=== PATIENT | female | born 1935 | race Caucasian/White ===

== ENCOUNTER → 2017-11-08 | Outpatient (CLI) | payer MEDICARE, BC ==
[2015-06-30 14:30] VITALS: BP 144/85
[~2017-11-08] MED LIST: ACET650T89 PO; APIX5TAB3 PO; ASCO500T2 PO; BUPIVACAINE MPF 0.5% 30 ML VIAL. ONE; CARV3.122 PO; DEXAMETHASONE SOD PHOS 4 MG/ML VIAL ONE; FELO2.5T PO; FELO5TAB PO; FERR325T72 PO; FURO-69 PO; FURO40TA4 PO; GLYB2.5T2 PO; HYDR-2758 PO; HYDR-2762 PO; LIDO700A4 TP; LISI10TA2 PO; NITR0.4T22 SL; NYST15PO9 TP; PANT40TA5 PO; POTA10TA10 PO; PRAV20TA2 PO
== END | disposition home or self-care (01) ==
LOC: SURG 13:24
PROVIDERS: ATTEND Anesthesiology Pain Medicine
DX: M47.816 Spondylosis without myelopathy or radiculopathy, lumbar region (principal); E11.9 Type 2 diabetes mellitus without complications; Z86.73 Personal history of transient ischemic attack (TIA), and cerebral infarction without residual deficits; Z88.5 Allergy status to narcotic agent; Z79.899 Other long term (current) drug therapy; M19.90 Unspecified osteoarthritis, unspecified site; Z88.1 Allergy status to other antibiotic agents; Z88.2 Allergy status to sulfonamides; Z88.8 Allergy status to other drugs, medicaments and biological substances; Z79.84 Long term (current) use of oral hypoglycemic drugs
CPT/HCPCS: 64493; 64494; 82947; J1100; J3490

== ENCOUNTER → 2017-11-28 | Outpatient (CLI) | payer MEDICARE, BC ==
[2017-11-10 11:05] VITALS: BP 148/85
[~2017-11-28] MED LIST changes: -BUPIVACAINE MPF 0.5% 30 ML VIAL. ONE; -DEXAMETHASONE SOD PHOS 4 MG/ML VIAL ONE; +IOHEXOL 240 MG/ML 50ML VIAL. ONE
--- NOTE | 2017-11-28 16:39 | RAD ---
CT Abdomen and Pelvis without Intravenous Contrast: History: Poor appetite. Weight loss. Comparison: CT abdomen pelvis June 30, 2015. Technique: After administration of oral contrast only, CT of the abdomen and pelvis was performed. No intravenous contrast was administered secondary to impaired renal function. Exposure: One or more of the following individualized dose reduction techniques were utilized for this examination: 1. Automated exposure control 2. Adjustment of the mA and/or kV according to patient size 3. Use of iterative reconstruction technique Findings: Evaluation of solid organs is limited by lack of intravenous contrast. Images of the lower chest demonstrate mild bronchiectasis. Mild interlobular and intralobular septal thickening is seen involving the lung bases, favored to be direct sales representative of fibrotic change. Mitral annular calcifications are seen. Liver, spleen, pancreas, and bilateral adrenal glands are unremarkable. Gallbladder is absent. Aortic atherosclerosis is seen. No abdominal or pelvic lymphadenopathy is appreciated. Superior pole of the right kidney demonstrates 3.1 cm exophytic low-density lesion. Interpolar region of the right kidney demonstrates 1.3 cm low-density lesion. Renal lesions are not adequately characterized on this examination. No urinary stone is identified. There does appear to be a mild wall thickening of urinary bladder and surrounding irregularity of the adjacent fat. Uterus is absent. Appendix is not confidently identified, but no inflammation is seen adjacent to the cecum. Several small fat-containing ventral hernias are seen. Apparent Degenerative changes are present in the spine. Mild levoconvex scoliosis of lumbar spine is seen. Impression: 1. No cause for patient's weight loss is identified. 2. Multiple fat-containing ventral hernias. 3. Right kidney demonstrates low-density lesions, not clinically characterized on this examination. Attempt at evaluation could be made with ultrasound. 4. Urinary bladder wall appears mildly thickening and there is irregularity of the surrounding fat. Correlate for possibility of cystitis. 5. Mild fibrotic changes of the lung bases. Mild bronchiectasis. Electronically signed by: Maverick Gillespie MD (11/28/2017 3:44 PM) [place] [id number]
== END | disposition home or self-care (01) ==
LOC: CT 08:32
PROVIDERS: ATTEND Family Medicine
DX: K43.9 Ventral hernia without obstruction or gangrene (principal); J47.9 Bronchiectasis, uncomplicated; I70.0 Atherosclerosis of aorta; I11.0 Hypertensive heart disease with heart failure; I50.9 Heart failure, unspecified; E11.9 Type 2 diabetes mellitus without complications; Z79.84 Long term (current) use of oral hypoglycemic drugs; Z90.49 Acquired absence of other specified parts of digestive tract
CPT/HCPCS: 74176; Q9966

== ENCOUNTER → 2017-12-06 | Outpatient (CLI) | payer MEDICARE, BC ==
[2017-11-10 11:05] VITALS: BP 148/85
[~2017-12-06] MED LIST changes: -IOHEXOL 240 MG/ML 50ML VIAL. ONE
--- NOTE | 2017-12-06 15:13 | RAD ---
Right renal ultrasound, 12/06/2017: HISTORY: Abnormal CT The right kidney measures 9.8 cm in length. There is no evidence of hydronephrosis. There is a 2.9 cm simple cyst arising from the upper pole of the right kidney. There is a smaller 1.3 cm cortical nodule located laterally which also appears to represent a cyst. There is mild bilateral renal cortical scarring. Limited views of urinary bladder show no abnormality. IMPRESSION: 1. Mild right renal cortical scarring. 2. Small right renal cysts. Electronically signed by: Vernon Santos MD (12/06/2017 3:09 PM) [facility]
== END | disposition home or self-care (01) ==
LOC: US 09:12
PROVIDERS: ATTEND Family Medicine
DX: N28.1 Cyst of kidney, acquired (principal); N28.89 Other specified disorders of kidney and ureter
CPT/HCPCS: 76775

== ENCOUNTER 2018-04-08 16:13 | Inpatient (IN) | payer MEDICARE, BC ==
[~2018-04-08] VITALS: Ht 167.6 cm; Wt 96.7 kg
[~2018-04-08 16:13] MED LIST changes: -CARV3.122 PO; +CARV3.1230 PO; +HYDR-2155 PO; -HYDR-2758 PO; -HYDR-2762 PO; +HYDR-2765 PO
[2018-04-08 16:40] LABS: BASO % 1 % (0-3); EOS % 0 % (0-3); HEMATOCRIT 33.9 % (36.0-47.0); HEMOGLOBIN 10.7 g/dL (12.0-15.5); LYMPH # 0.8 x10^3/uL (1.0-4.8); LYMPH % 12 % (24-48); MEAN CORPUSCULAR HEMOGLOBIN 29 pg (25-35); MEAN CORPUSCULAR HGB CONC 32 g/dL (31-37); MEAN CORPUSCULAR VOLUME 91 fL (79-100); MONO # 0.4 x10^3/uL (0.0-1.1); MONO % 7 % (0-9); NEUT # 4.9 x10^3uL (1.8-7.7); NEUT % 80 % (31-73); PLATELET COUNT 168 x10^3/uL (140-400); RED BLOOD COUNT 3.75 x10^6/uL (3.50-5.40); RED CELL DISTRIBUTION WIDTH 17.9 % (11.5-14.5); WHITE BLOOD COUNT 6.2 x10^3/uL (4.0-11.0)
[2018-04-08 16:57] LABS: ALBUMIN 3.3 g/dL (3.4-5.0); ALBUMIN/GLOBULIN RATIO 0.7 (1.0-1.7); CALCIUM 8.5 mg/dL (8.5-10.1); CREATININE 1.3 mg/dL (0.6-1.0); GFR 39.1; POTASSIUM 3.3 mmol/L (3.5-5.1); TOTAL BILIRUBIN 0.5 mg/dL (0.2-1.0); TOTAL PROTEIN 7.8 g/dL (6.4-8.2)
[2018-04-08 16:58] VITALS: BP 136/87
[2018-04-08] MEDS ORDERED: VANCOMYCIN 2 GM in IV NORMAL SALINE 500ML 500 ML IV ONE (17:00)
[2018-04-08] MEDS ORDERED: ACETAMINOPHEN 325 MG TABLET PO PRN (18:00)
[2018-04-08] MEDS: VANCOMYCIN PER PHARMACY MC PRN (20:07)
[2018-04-08] MEDS: HYDROcodone/APAP 7.5/325MG 1 TAB TABLET PO PRN (20:14)
[2018-04-08] MEDS: APIXABAN 5 MG TABLET. PO SCH (20:14)
[2018-04-08] MEDS: PRAVASTATIN 20 MG TABLET. PO SCH (20:14)
[2018-04-08] MEDS: PANTOPRAZOLE 40 MG TABLET. PO SCH (20:15)
[2018-04-08] MEDS: CARVEDILOL 3.125 MG TABLET PO SCH (20:15)
[2018-04-08] MEDS: LACTOBACILLUS RHAMNOSUS GG 1 CAPSULE. PO SCH (20:18)
[2018-04-08] MEDS: NYSTATIN TOPICAL POWDER 15GM BOTTLE. TP SCH (20:18)
[2018-04-08 20:46] VITALS: BP 93/67
[2018-04-08 23:29] VITALS: BP 120/69
[2018-04-09 00:13] LABS: HEMOGLOBIN A1C 6.1 % (4.8-5.6)
[2018-04-09] MEDS: HYDROcodone/APAP 7.5/325MG 1 TAB TABLET PO PRN ×3 (03:11→20:23)
[2018-04-09 06:20] VITALS: BP 144/78
[2018-04-09 06:25] LABS: BASO % 1 % (0-3); EOS % 1 % (0-3); HEMATOCRIT 30.2 % (36.0-47.0); HEMOGLOBIN 9.5 g/dL (12.0-15.5); LYMPH % 21 % (24-48); MEAN CORPUSCULAR HEMOGLOBIN 28 pg (25-35); MEAN CORPUSCULAR HGB CONC 31 g/dL (31-37); MEAN CORPUSCULAR VOLUME 90 fL (79-100); MONO # 0.4 x10^3/uL (0.0-1.1); MONO % 8 % (0-9); NEUT # 3.4 x10^3uL (1.8-7.7); NEUT % 70 % (31-73); PLATELET COUNT 144 x10^3/uL (140-400); RED BLOOD COUNT 3.38 x10^6/uL (3.50-5.40); RED CELL DISTRIBUTION WIDTH 17.4 % (11.5-14.5); WHITE BLOOD COUNT 4.9 x10^3/uL (4.0-11.0)
[2018-04-09 06:37] LABS: CALCIUM 8.3 mg/dL (8.5-10.1); CREATININE 1.2 mg/dL (0.6-1.0); GFR 42.9; POTASSIUM 3.4 mmol/L (3.5-5.1)
[2018-04-09] MEDS: LACTOBACILLUS RHAMNOSUS GG 1 CAPSULE. PO SCH ×2 (08:57→20:22)
[2018-04-09] MEDS: APIXABAN 5 MG TABLET. PO SCH ×2 (08:58→20:23)
[2018-04-09] MEDS: NYSTATIN TOPICAL POWDER 15GM BOTTLE. TP SCH ×2 (08:58→20:24)
[2018-04-09] MEDS: LIDOCAINE (700MG/PATCH) PATCH. TD SCH (08:58)
[2018-04-09] MEDS: FUROSEMIDE 40 MG TABLET PO SCH (08:58)
[2018-04-09] MEDS: amLODIPine BESYLATE 2.5 MG TABLET PO SCH (08:58)
[2018-04-09] MEDS: CARVEDILOL 3.125 MG TABLET PO SCH ×2 (08:58→20:23)
[2018-04-09] MEDS: POTASSIUM CHLORIDE 10 MEQ TABLET.ER. PO SCH (08:59)
[2018-04-09] MEDS: PANTOPRAZOLE 40 MG TABLET. PO SCH ×2 (09:00→20:23)
[2018-04-09] MEDS: glyBURIDE 5 MG TABLET PO SCH (09:00)
[2018-04-09] MEDS: IV NORMAL SALINE 1,000ML 1,000 ML IV SCH (10:44)
[2018-04-09 11:14] VITALS: BP 166/102
[2018-04-09 11:15] VITALS: BP 164/106
[2018-04-09] MEDS ORDERED: ELECTROLYTE (ICU) PROTOCOL. MC PRN (11:30)
--- NOTE | 2018-04-09 13:21 | RAD ---
EXAM: Bilateral lower extremity venous Doppler sonogram. HISTORY: Swelling and pain. TECHNIQUE: Bailey scale and color Doppler sonographic evaluation of the bilateral lower extremity veins with spectral waveform analysis was performed. FINDINGS: The exam is limited due to body habitus and soft tissue swelling. The calf veins are not well seen. There is normal color flow, normal compressibility and there are normal spectral waveforms in the common femoral, superficial femoral, popliteal veins. IMPRESSION: No Doppler evidence of lower extremity deep venous thrombosis, with limited evaluation of the calf veins due to body habitus and soft tissue swelling. Electronically signed by: Katie Reynoso MD (04/09/2018 1:16 PM) [place] [id number]
[2018-04-09] MEDS: hydrALAZINE 25 MG TABLET PO SCH ×2 (13:25→20:23)
[2018-04-09] MEDS ORDERED: IOHEXOL 300 MG/ML 75 ML VIAL. IV ONE (14:15)
--- NOTE | 2018-04-09 14:51 | RAD ---
Examination: CT angiography chest HISTORY: History of elevated d-dimer, shortness of breath COMPARISON: None available Technique: Axial CT angiographic images of the chest performed with IV contrast. Coronal and sagittal 3-D MIP reformats are performed Exposure: One or more of the following individualized dose reduction techniques were utilized for this examination: 1. Automated exposure control 2. Adjustment of the mA and/or kV according to patient size 3. Use of iterative reconstruction technique FINDINGS: The central airways are patent. Mild cardiomegaly. Coronary artery calcifications identified. There is no evidence of filling defect identified in the main pulmonary arterial trunk and right and left main pulmonary arteries. The evaluation of the distal lobar, segmental branch of the pulmonary arteries is limited. There are multiple patchy groundglass airspace opacities identified in the bilateral lungs could be air trapping or small airway or small vessel disease with airspace opacities identified along the left lingula, left lower lobe and right lower lobe bronchial branches likely pneumonitis or bronchitis. Small left pleural effusion. Mild congestive changes. There is reflux of contrast from the into the IVC and hepatic veins The visualized liver, spleen, adrenals grossly appears unremarkable Moderate degenerative changes thoracic spine. IMPRESSION: 1. No evidence of central pulmonary embolism. Evaluation of the peripheral branches the pulmonary arteries is limited. 2. Multiple patchy groundglass airspace opacities identified in the bilateral lungs could be air trapping or small airway or small vessel disease with airspace opacities identified along the left lingula, left lower lobe and right lower lobe bronchial branches likely pneumonitis or bronchitis. Small left pleural effusion. Mild congestive changes. Electronically signed by: Iron Goodman MD (04/09/2018 2:46 PM) [facility]
[2018-04-09 15:24] VITALS: BP 142/89
[2018-04-09] MEDS: VANCOMYCIN 1.5 GM in IV NORMAL SALINE 500ML 500 ML IV SCH (17:04)
[2018-04-09 19:47] VITALS: BP 155/90
[2018-04-09] MEDS ORDERED: POTASSIUM CHLORIDE 20 MEQ TABLET.ER. PO ONE (20:15)
[2018-04-09] MEDS: PRAVASTATIN 20 MG TABLET. PO SCH (20:23)
--- NOTE | 2018-04-09 21:44 | PN ---
DATE: 04/09/2018 SUBJECTIVE: An 82-year-old female in with cellulitis to her legs with marked ulceration, venous stasis ulcers to her legs. The patient says she is feeling a little better this morning. OBJECTIVE: VITAL SIGNS: Blood pressure is up to 164/106, respiratory rate 20, pulse 76, afebrile. GENERAL: The patient is alert and oriented. LUNGS: Diminished, but clear. CARDIOVASCULAR: Regular sinus rhythm. EXTREMITIES: Legs are somewhat down already. IMPRESSION AND PLAN: Combination of vancomycin and getting some Lasix orally. We are having wound care review the patient with some of the redness and inflammation to the lower legs seem to be healing up and will need to get the stasis controlled and make further evaluation once those are completed there. DINORAH LEWIS MD DR: JOSE/rosie JOB#: [id number] / [id number]
[2018-04-09 23:20] VITALS: BP 140/72
[2018-04-10] VITALS (7 sets, daily range): BP systolic 158–198; BP diastolic 73–104
[2018-04-10] MEDS: IV NORMAL SALINE 1,000ML 1,000 ML IV SCH (02:42)
[2018-04-10] MEDS: HYDROcodone/APAP 7.5/325MG 1 TAB TABLET PO PRN ×2 (04:07→17:58)
[2018-04-10] MEDS: PANTOPRAZOLE 40 MG TABLET. PO SCH ×2 (08:15→21:03)
[2018-04-10] MEDS: FUROSEMIDE 40 MG TABLET PO SCH (08:15)
[2018-04-10] MEDS: LACTOBACILLUS RHAMNOSUS GG 1 CAPSULE. PO SCH ×2 (08:15→21:01)
[2018-04-10] MEDS: APIXABAN 5 MG TABLET. PO SCH ×2 (08:16→21:03)
[2018-04-10] MEDS: glyBURIDE 5 MG TABLET PO SCH (08:16)
[2018-04-10] MEDS: CARVEDILOL 3.125 MG TABLET PO SCH ×2 (08:16→21:02)
[2018-04-10] MEDS: amLODIPine BESYLATE 2.5 MG TABLET PO SCH (08:17)
[2018-04-10] MEDS: hydrALAZINE 25 MG TABLET PO SCH ×3 (08:17→21:03)
[2018-04-10] MEDS: POTASSIUM CHLORIDE 10 MEQ TABLET.ER. PO SCH (08:17)
[2018-04-10] MEDS: NYSTATIN TOPICAL POWDER 15GM BOTTLE. TP SCH ×2 (08:18→21:00)
[2018-04-10] MEDS: LIDOCAINE (700MG/PATCH) PATCH. TD SCH (08:19)
--- NOTE | 2018-04-10 16:42 | RAD ---
Examination: Ultrasound bilateral lower extremity arterial duplex HISTORY: History of vascular insufficiency COMPARISON: None available Technique: Grayscale, color Doppler 2-D, spectral waveform analysis of the bilateral lower extremity arterial system were performed FINDINGS: Following are the velocities in the right lower extremity: PATENT PROSECUTION ATTORNEY 75 cm/s, biphasic DFA 52 cm/s, biphasic Proximal SFA 75 cm/s, biphasic Mid SFA 55 cm/s, biphasic Distal SFA 82 cm/s, biphasic Popliteal artery 32 cm/s, biphasic Proximal NURSE ORTHOPEDIC 51 cm/s, monophasic Distal NURSE ORTHOPEDIC 43 cm/s, monophasic Peroneal artery could not be identified Anterior tibialis artery 25 cm/s, monophasic Dorsalis pedis artery 50 cm/s, monophasic. The following are the velocities in the left lower extremity arterial system PATENT PROSECUTION ATTORNEY 63 cm/s, biphasic DFA 45 cm/s, biphasic Proximal SFA 62 cm/s, triphasic Mid SFA 51 cm/s, triphasic Distal SFA 100 cm/s, biphasic Popliteal artery 51 cm/s, triphasic Proximal NURSE ORTHOPEDIC 48 cm/s, biphasic Distal NURSE ORTHOPEDIC 38 cm/s, monophasic Peroneal artery 71 cm/s, monophasic Anterior tibialis artery 52 cm/s, triphasic Dorsalis pedis artery 71 cm/s, triphasic Mild atherosclerotic calcification identified in the bilateral lower extremity arterial system. Examination is limited due to leg swelling. IMPRESSION: No evidence of hemodynamically significant stenosis identified. There is biphasic and monophasic waveforms identified in the bilateral lower extremity arterial system probably due to proximal atherosclerotic disease. The right peroneal artery could not be visualized. Electronically signed by: Iron Goodman MD (04/10/2018 4:38 PM) [id number]
[2018-04-10 16:54] LABS: VANC TR 13.7 mcg/mL (10.0-20.0)
[2018-04-10] MEDS: VANCOMYCIN PER PHARMACY MC PRN (17:06)
[2018-04-10] MEDS: VANCOMYCIN 1.5 GM in IV NORMAL SALINE 500ML 500 ML IV SCH (17:14)
[2018-04-10] MEDS: METOPROLOL SUCC 24HR ER 50 MG TAB.ER.24H. PO SCH ×2 (18:30→21:04)
[2018-04-10] MEDS: PRAVASTATIN 20 MG TABLET. PO SCH (21:03)
--- NOTE | 2018-04-10 23:42 | PN ---
DATE: 04/10/2018 SUBJECTIVE: The patient is an 82-year-old female who is in with cellulitis to her legs, venous stasis insufficiency and ulceration to her legs. The patient's Doppler studies were basically no signs of arterial stenosis nor evidence of venous clots as well. Her CTA of the chest was unremarkable as well. Her legs have gone down with rest, elevation, Lasix. Wound care has reviewed the patient. OBJECTIVE: VITAL SIGNS: Her big problem now seems to be blood pressure, which has gone as high as 198/102, pulse of 91, respiratory rate 18, afebrile, overall (NC). We will go ahead and start her on some metoprolol succinate to help bring down her blood pressure and her pulse there. GENERAL APPEARANCE: Otherwise, she is making fairly good progress. LUNGS: Diminished throughout. CARDIOVASCULAR: Regular sinus rhythm. ABDOMEN: Soft, nontender. EXTREMITIES: Legs are less swollen but still edematous and still evidences of cellulitis. ASSESSMENT AND PLAN: Continue on antibiotic therapy, hypertensive urgency, we will go ahead and start her on some metoprolol. DINORAH LEWIS MD DR: JOSE/rosie JOB#: [id number] / [id number]
[2018-04-11] MEDS: HYDROcodone/APAP 7.5/325MG 1 TAB TABLET PO PRN ×3 (00:17→17:55)
[2018-04-11 05:34] VITALS: BP 154/94
[2018-04-11] MEDS: amLODIPine BESYLATE 2.5 MG TABLET PO SCH (08:32)
[2018-04-11] MEDS: METOPROLOL SUCC 24HR ER 50 MG TAB.ER.24H. PO SCH ×2 (08:32→20:36)
[2018-04-11] MEDS: APIXABAN 5 MG TABLET. PO SCH ×2 (08:32→20:36)
[2018-04-11] MEDS: PANTOPRAZOLE 40 MG TABLET. PO SCH ×2 (08:32→20:36)
[2018-04-11] MEDS: LIDOCAINE (700MG/PATCH) PATCH. TD SCH (08:32)
[2018-04-11] MEDS: FUROSEMIDE 40 MG TABLET PO SCH (08:32)
[2018-04-11] MEDS: POTASSIUM CHLORIDE 10 MEQ TABLET.ER. PO SCH (08:33)
[2018-04-11] MEDS: LACTOBACILLUS RHAMNOSUS GG 1 CAPSULE. PO SCH ×2 (08:34→20:36)
[2018-04-11] MEDS: glyBURIDE 5 MG TABLET PO SCH (08:34)
[2018-04-11] MEDS: hydrALAZINE 25 MG TABLET PO SCH ×3 (08:34→20:37)
[2018-04-11] MEDS: CARVEDILOL 3.125 MG TABLET PO SCH ×2 (08:35→20:38)
[2018-04-11] MEDS: NYSTATIN TOPICAL POWDER 15GM BOTTLE. TP SCH ×2 (08:35→20:38)
[2018-04-11 11:49] VITALS: BP 172/87
[2018-04-11] MEDS ORDERED: HYDR-2765 PO (13:30)
[2018-04-11] MEDS ORDERED: LACT1CAP19 PO (13:30)
[2018-04-11] MEDS ORDERED: HYDR-2868 PO (13:30)
[2018-04-11] MEDS ORDERED: METO50TA29 PO (13:30)
[2018-04-11] MEDS ORDERED: CARV6.253 PO (13:30)
[2018-04-11] MEDS ORDERED: CEPH-264 PO (14:06)
[2018-04-11 15:12] VITALS: BP 159/84
[2018-04-11] MEDS: VANCOMYCIN 1.5 GM in IV NORMAL SALINE 500ML 500 ML IV SCH (17:09)
[2018-04-11 19:24] VITALS: BP 156/79
[2018-04-11] MEDS: PRAVASTATIN 20 MG TABLET. PO SCH (20:36)
--- NOTE | 2018-04-11 23:25 | PN ---
DATE: SUBJECTIVE: An 82-year-old female patient has cellulitis to her legs, bilateral stasis dermatitis as well as marked venous ulceration to her lower leg, type 2 diabetes, morbid obesity. She is resting fairly comfortably, still receiving IV antibiotic therapy. OBJECTIVE: VITAL SIGNS: Blood pressure 156/79, respiratory rate 18, pulse 70, afebrile. GENERAL: The patient is alert and oriented. LUNGS: Diminished, but clear than they have been. CARDIOVASCULAR: Regular sinus rhythm. ABDOMEN: Soft, nontender, but markedly protuberant. EXTREMITIES: Still swollen, but less so than they have been and we will continue to monitor her. She has been having elevated blood pressures of greater than 190. IMPRESSION: Therefore of cellulitis to the lower legs, stasis dermatitis, venous stasis ulcers, morbid obesity, hypertensive urgency, type 2 diabetes. PLAN: Continue on present drug regimen. Hopefully ready for discharge in the morning. Her blood pressure has come down nicely. We will make further evaluation on her as indicated. DINORAH LEWIS MD DR: JOSE/rosie JOB#: [id number] / [id number]
[2018-04-12] MEDS: HYDROcodone/APAP 7.5/325MG 1 TAB TABLET PO PRN ×2 (00:56→11:00)
[2018-04-12 05:05] VITALS: BP 145/77
[2018-04-12] MEDS: LIDOCAINE (700MG/PATCH) PATCH. TD SCH (08:39)
[2018-04-12] MEDS: APIXABAN 5 MG TABLET. PO SCH (08:40)
[2018-04-12] MEDS: LACTOBACILLUS RHAMNOSUS GG 1 CAPSULE. PO SCH (08:40)
[2018-04-12] MEDS: hydrALAZINE 25 MG TABLET PO SCH (08:40)
[2018-04-12] MEDS: amLODIPine BESYLATE 2.5 MG TABLET PO SCH (08:40)
[2018-04-12] MEDS: CARVEDILOL 3.125 MG TABLET PO SCH (08:41)
[2018-04-12] MEDS: METOPROLOL SUCC 24HR ER 50 MG TAB.ER.24H. PO SCH (08:41)
[2018-04-12] MEDS: PANTOPRAZOLE 40 MG TABLET. PO SCH (08:42)
[2018-04-12] MEDS: FUROSEMIDE 40 MG TABLET PO SCH (08:42)
[2018-04-12] MEDS: POTASSIUM CHLORIDE 10 MEQ TABLET.ER. PO SCH (08:42)
[2018-04-12] MEDS: glyBURIDE 5 MG TABLET PO SCH (08:42)
[2018-04-12] MEDS: NYSTATIN TOPICAL POWDER 15GM BOTTLE. TP SCH (08:43)
[2018-04-12 11:13] VITALS: BP 127/67
--- NOTE | 2018-04-13 18:26 | DS ---
DATE OF DISCHARGE: 04/12/2018 HOSPITAL COURSE: An 82-year-old white female initially came in to the Emergency Room with cellulitis to her legs as well as a large venous stasis ulceration to the lateral side of the right lower leg. The patient also had an infection of her lower leg. She was placed on IV antibiotic therapy. She is a type 2 diabetic and also has obesity as a problem. The patient made good progress. She was seen by Wound Care, used wrappings, elevation, continued on oral antibiotics. She made good progress with us and by the time she left, she was then feeling in reasonably good health. The patient has had arterial Dopplers and they were negative for any significant blockage. The patient also was given instructions on her venous stasis. By time she left, she was then doing extremely well, negative DVTs as well. Her labs demonstrated anemia of chronic disease as well as her blood sugars was under very good control. Her A1c was only 6.1. The patient made good progress. She was discharged home on a diabetic diet, home health to follow her and make further assessment with her blood sugars as well. IMPRESSION: Cellulitis to the legs, venous stasis ulceration, morbid obesity, type 2 diabetes, elevated D-dimer. DISCHARGE PLAN: Otherwise, she will continue to be monitored as an outpatient, make further evaluation on her as indicated and mild protein malnutrition. DINORAH LEWIS MD DR: JOSE/rosie JOB#: [id number] / [id number]
[2018-07-14] MEDS ORDERED: CYAN-25 PO (11:13)
== END 2018-04-12 13:55 | disposition home or self-care (01) | DRG 603 ==
LOC: 1 SOUTH 16:13
PROVIDERS: ADMIT Family Medicine; ATTEND Family Medicine
DX: L03.115 Cellulitis of right lower limb (principal); L97.919 Non-pressure chronic ulcer of unspecified part of right lower leg with unspecified severity; L97.929 Non-pressure chronic ulcer of unspecified part of left lower leg with unspecified severity; R65.10 Systemic inflammatory response syndrome (SIRS) of non-infectious origin without acute organ dysfunction; L03.116 Cellulitis of left lower limb; E11.9 Type 2 diabetes mellitus without complications; E66.01 Morbid (severe) obesity due to excess calories; I87.8 Other specified disorders of veins; I87.2 Venous insufficiency (chronic) (peripheral); I16.0 Hypertensive urgency; D63.8 Anemia in other chronic diseases classified elsewhere; Z68.34 Body mass index [BMI] 34.0-34.9, adult
CPT/HCPCS: 36415; 71275; 80048; 80053; 80202; 82947; 83036; 85025; 85379; 85651; 93925; 93970; J3370; J7040; Q9967; J7030

== ENCOUNTER 2018-04-13 08:43 | Inpatient (IN) | payer MEDICARE, BC ==
[~2018-04-13] VITALS: Ht 167.6 cm; Wt 97.2 kg
[~2018-04-13 08:43] MED LIST changes: +CARV6.253 PO; +CEPH-264 PO; +HYDR-2868 PO; +LACT1CAP19 PO; +METO50TA29 PO
--- NOTE | 2018-04-13 09:30 | RAD ---
Indication:Hurting all over TECHNIQUE:Portable AP chest X-ray COMPARISON: None FINDINGS: Patient is rotated to the right side. Heart is moderately enlarged in size. Lungs are clear. No pneumothorax or pleural effusion. Visualized bony thorax is within normal limits. IMPRESSION: Moderate cardia megaly. No acute pulmonary process. Electronically signed by: Vahid Azul DO (04/13/2018 9:25 AM) [facility]
--- NOTE | 2018-04-13 09:31 | EKG ---
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
[2018-04-13 09:39] LABS: BASO % 1 % (0-3); EOS % 0 % (0-3); HEMOGLOBIN 10.4 g/dL (12.0-15.5); LYMPH # 0.6 x10^3/uL (1.0-4.8); LYMPH % 12 % (24-48); MEAN CORPUSCULAR HEMOGLOBIN 28 pg (25-35); MEAN CORPUSCULAR HGB CONC 31 g/dL (31-37); MEAN CORPUSCULAR VOLUME 89 fL (79-100); MONO # 0.3 x10^3/uL (0.0-1.1); MONO % 7 % (0-9); NEUT # 4.1 x10^3uL (1.8-7.7); NEUT % 81 % (31-73); PLATELET COUNT 158 x10^3/uL (140-400); RED BLOOD COUNT 3.72 x10^6/uL (3.50-5.40); RED CELL DISTRIBUTION WIDTH 18.2 % (11.5-14.5); WHITE BLOOD COUNT 5.1 x10^3/uL (4.0-11.0)
[2018-04-13 09:47] LABS: ALBUMIN 3.2 g/dL (3.4-5.0); ALBUMIN/GLOBULIN RATIO 0.7 (1.0-1.7); CREATININE 1.3 mg/dL (0.6-1.0); GFR 39.1; TOTAL BILIRUBIN 0.4 mg/dL (0.2-1.0); TOTAL PROTEIN 7.7 g/dL (6.4-8.2)
--- NOTE | 2018-04-13 10:39 | PHYS DOC ---
Past History Past Medical History: Diabetes, Hypertension Past Surgical History: Cholecystectomy, , Hysterectomy, Other Smoking: Non-smoker Alcohol Use: None Drug Use: None Adult General Chief Complaint Chief Complaint: GENERALIZED BODY ACHES HPI HPI Patient is a 82 year old female who brought in by EMS because of hurting all over. Patient is diabetic and was discharged from hospital to her home yesterday after admission for bilateral extremity diabetic ulcers. Patient states she felt pain all over since 2100 last night after she went to the bed this morning while he has been was at the buddhist called 911. Patient states she is waiting to pain medication patch but he does not helping for her pain and rated her pain 10 over 10. Patient denies fever and chills, chest pain, as he and vomiting. Review of Systems Review of Systems Constitutional: Denies fever or chills [] Eyes: Denies change in visual acuity, redness, or eye pain [] HENT: Denies nasal congestion or sore throat [] Respiratory: Denies cough or shortness of breath [] Cardiovascular: No additional information not addressed in HPI [] GI: Denies abdominal pain, nausea, vomiting, bloody stools or diarrhea [] : Denies dysuria or hematuria [] Musculoskeletal: Denies back pain or joint pain [] Integument: Denies rash or skin lesions [] Neurologic: Denies headache, focal weakness or sensory changes [] Endocrine: Denies polyuria or polydipsia [] All other systems were reviewed and found to be within normal limits, except as documented in this note. Current Medications Current Medications Current Medications Medications (Trade) Dose Ordered Sig/[facility] Start Time Stop Time Status Last Admin Dose Admin Fentanyl Citrate (Fentanyl 2ml Vial) 50 mcg 1X ONCE 04/13/18 10:30 04/13/18 10:31 DC Allergies Allergies Allergies Coded Allergies Type Severity Reaction Last Updated Verified morphine Allergy Intermediate RASH 11/08/17 Yes Physical Exam Physical Exam Constitutional: Well developed, well nourished, mild acute distress, non-toxic appearance. [] HENT: Normocephalic, atraumatic Eyes: PERRLA, EOMI, conjunctiva normal, no discharge. [] Neck: Normal range of motion, no tenderness, supple, no stridor. [] Cardiovascular: Irregularly irregular rhythm, no murmur [] Lungs & Thorax: Bilateral breath sounds clear to auscultation [] Abdomen: Bowel sounds normal, soft, no tenderness, no masses, no pulsatile masses. [] Skin: Warm, dry, no rash. [] Back: No tenderness, no CVA tenderness. [] Extremities: 5 x 10 cm he is sitting lateral side of right lower extremity above ankle without sign of infection, 1 cm healing wound in medial side of left leg above ankle without sign of infection, multiple toes old ulcers without abscess, ROM intact, no edema. [] Neurologic: Alert and oriented X 3, normal motor function, normal sensory function, no focal deficits noted. [] Psychologic: Affect anxious, judgement normal, mood normal. [] Current Patient Data Vital Signs Vital Signs Date Time Temp Pulse Resp B/P (MAP) Pulse Ox O2 Delivery O2 Flow Rate FiO2 04/13/18 09:15 62 18 154/83 (106) 93 Room Air Lab Results Laboratory Tests Test 04/13/18 09:15 White Blood Count 5.1 x10^3/uL (4.0-11.0) Red Blood Count 3.72 x10^6/uL (3.50-5.40) Hemoglobin 10.4 g/dL (12.0-15.5) L Hematocrit 33.0 % (36.0-47.0) L Mean Corpuscular Volume 89 fL (79-100) Mean Corpuscular Hemoglobin 28 pg (25-35) Mean Corpuscular Hemoglobin Concent 31 g/dL (31-37) Red Cell Distribution Width 18.2 % (11.5-14.5) H Platelet Count 158 x10^3/uL (140-400) Neutrophils (%) (Auto) 81 % (31-73) H Lymphocytes (%) (Auto) 12 % (24-48) L Monocytes (%) (Auto) 7 % (0-9) Eosinophils (%) (Auto) 0 % (0-3) Basophils (%) (Auto) 1 % (0-3) Neutrophils # (Auto) 4.1 x10^3uL (1.8-7.7) Lymphocytes # (Auto) 0.6 x10^3/uL (1.0-4.8) L Monocytes # (Auto) 0.3 x10^3/uL (0.0-1.1) Eosinophils # (Auto) 0.0 x10^3/uL (0.0-0.7) Basophils # (Auto) 0.0 x10^3/uL (0.0-0.2) Sodium Level 144 mmol/L (136-145) Potassium Level 4.0 mmol/L (3.5-5.1) Chloride Level 105 mmol/L (98-107) Carbon Dioxide Level 31 mmol/L (21-32) Anion Gap 8 (6-14) Blood Urea Nitrogen 28 mg/dL (7-20) H Creatinine 1.3 mg/dL (0.6-1.0) H Estimated GFR (Cockcroft-Gault) 39.1 BUN/Creatinine Ratio 22 (6-20) H Glucose Level 99 mg/dL (70-99) Lactic Acid Level 1.1 mmol/L (0.4-2.0) Calcium Level 9.0 mg/dL (8.5-10.1) Total Bilirubin 0.4 mg/dL (0.2-1.0) Aspartate Amino Transferase (AST) 21 U/L (15-37) Alanine Aminotransferase (ALT) 13 U/L (14-59) L Alkaline Phosphatase 96 U/L (46-116) Total Protein 7.7 g/dL (6.4-8.2) Albumin 3.2 g/dL (3.4-5.0) L Albumin/Globulin Ratio 0.7 (1.0-1.7) L EKG EKG EKG interpreted by me. EKG at 0925 showed atrial fibrillation with abnormal right axis deviation, right bundle branch block, RVH, no acute distress and T- wave abnormalities Radiology/Procedures Radiology/Procedures [] Course & Med Decision Making Course & Med Decision Making Pertinent Labs and Imaging studies reviewed. (See chart for details) Evaluation of patient in ER showed 82-year-old male patient was discharged from hospital yesterday brought in by EMS because of hurting all over. Patient lives at home and considering to go to rehabilitation for taking care of her multiple medical problem. Dr. Culp accepted admission at 1022. Phi Disclaimer [place] Disclaimer This electronic medical record was generated, in whole or in part, using a voice recognition dictation system. Departure Departure: Impression: Primary Impression: Generalized pain Additional Impressions: Cellulitis of right lower extremity Anemia Renal insufficiency Diabetes mellitus Atrial fibrillation Disposition: 09 ADMITTED INPATIENT (at 1023) Admitting Physician: Dinorah Culp (accepted admission at 1022) Condition: IMPROVED Referrals: DINORAH CULP MD (PCP) Problem Qualifiers DAVIS MENDOZA MD Apr 13, 2018 10:39
[2018-04-13 12:48] VITALS: BP 166/93
[2018-04-13] MEDS ORDERED: HYDROcodone/APAP 5/325MG 1 TAB TABLET PO PRN ×2 (14:45)
[2018-04-13 16:15] VITALS: BP 138/77
[2018-04-13] MEDS ORDERED: HYDROcodone/APAP 7.5/325MG 1 TAB TABLET PO PRN ×3 (18:30→18:45)
[2018-04-13] MEDS ORDERED: ACETAMINOPHEN 325 MG TABLET PO PRN (18:45)
[2018-04-13] MEDS ORDERED: ANTI-COAG MONITOR BY PHARMACY. MC PRN (19:00)
[2018-04-13 19:03] VITALS: BP 129/79
--- NOTE | 2018-04-13 20:02 | HP ---
ADMIT DATE: 04/13/2018 HISTORY OF PRESENT ILLNESS: The patient recently was discharged, but came in for the different completely complaint. She has been in generalized achiness all over. The patient has been having problems with severe pain that she did not have while she was in the hospital last time. This is a new finding. The patient was unable to sleep because of the pain and as a result of this the patient was admitted to the hospital for further evaluation. She had pain of 10/10, which was unlike anything she has had before. She denied chest pain or shortness of breath. The patient was admitted to the hospital for further evaluation and treatment thereof. PAST MEDICAL HISTORY: Includes chronic back pain, hypertension, atrial fibrillation, stasis dermatitis, venous stasis, cellulitis of the legs, stent placement, hypothyroidism, renal artery stenosis with stent, TIAs, osteoarthritis. The patient has also had cholecystectomy, total abdominal hysterectomy, bilateral salpingo-oophorectomy, bilateral total knee arthroplasty, back surgery and colonoscopy. ALLERGIES: MORPHINE. MEDICATIONS: Reviewed in reconcile list. See those. No changes there. FAMILY HISTORY: Two brothers, youngest fire-killed, was a chief librarian branch. Mother of unknown causes. 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 REVIEW OF SYSTEMS: Outside of the fact that she aches all over in pain and it is excruciating to the point where she cannot move out of bed. The patient denies chest pain, shortness of breath, abdominal pain. The patient's legs are now worse than usual and neurologically stable. PHYSICAL EXAMINATION: GENERAL: This is a pleasant white female, somewhat obese. VITAL SIGNS: Blood pressure ____ high as 172/82, pulse 72, afebrile, oxygen saturation of 93%. HEENT: The patient's head was atraumatic, normocephalic. Eyes: PERRLA without jaundice. The mouth and throat were normal. NECK: Supple, without JVD, carotid bruits. No thyromegaly. LUNGS: Diminished, but clear. CARDIOVASCULAR: Regular sinus rhythm. NEUROLOGIC: This patient was agonal because of the amount of pain that she was having throughout her body and inability to move. ABDOMEN: Soft, nontender, no rebound or guarding. Positive bowel sounds, no hepatosplenomegaly. EXTREMITIES: No clubbing, cyanosis. Trace edema. The patient has hyperpigmentation to the legs, swelling to the legs consistent with lymphedema and chronic stasis there. PLAN: The patient was admitted for further evaluation and treatment. Make further evaluation on her as indicated. IMPRESSION AND PLAN: Intractable pain. The patient to be admitted for pain management. Further evaluation as indicated. Continue on home meds and make further evaluation on her. Also, chronic kidney disease, morbid obesity and venous stasis. PLAN: As above. DINORAH LEWIS MD DR: JOSE/rosie JOB#: [id number] / [id number]
[2018-04-13] MEDS ORDERED: PRAVASTATIN 20 MG TABLET. PO SCH (21:00)
[2018-04-13] MEDS ORDERED: LACTOBACILLUS RHAMNOSUS GG 1 CAPSULE. PO SCH (21:00)
[2018-04-13] MEDS ORDERED: clonazePAM 1 MG TABLET PO SCH (21:00)
[2018-04-13] MEDS: LACTOBACILLUS RHAMNOSUS GG 1 CAPSULE. PO SCH (21:13)
[2018-04-13] MEDS: CEPHALEXIN 250 MG CAPSULE PO SCH (21:13)
[2018-04-13] MEDS: APIXABAN 5 MG TABLET. PO SCH (21:14)
[2018-04-13] MEDS: PANTOPRAZOLE 40 MG TABLET. PO SCH (21:14)
[2018-04-13 21:15] VITALS: BP 148/67
[2018-04-13] MEDS: CARVEDILOL 6.25 MG TABLET PO SCH (21:15)
[2018-04-14 05:46] VITALS: BP 145/84
[2018-04-14] MEDS: CEPHALEXIN 250 MG CAPSULE PO SCH (05:47)
[2018-04-14] MEDS ORDERED: POTASSIUM CHLORIDE 10 MEQ TABLET.ER. PO SCH (08:00)
[2018-04-14] MEDS ORDERED: glyBURIDE 5 MG TABLET PO SCH (08:00)
[2018-04-14] MEDS ORDERED: LIDOCAINE (700MG/PATCH) PATCH. TD SCH (09:00)
[2018-04-14] MEDS ORDERED: FUROSEMIDE 40 MG TABLET PO SCH (09:00)
[2018-04-14] MEDS ORDERED: NYSTATIN TOPICAL POWDER 15GM BOTTLE. TP SCH (09:00)
[2018-04-14] MEDS ORDERED: METOPROLOL SUCC 24HR ER 50 MG TAB.ER.24H. PO SCH (09:00)
[2018-04-14] MEDS ORDERED: amLODIPine BESYLATE 2.5 MG TABLET PO SCH (09:00)
[2018-04-14] MEDS: LACTOBACILLUS RHAMNOSUS GG 1 CAPSULE. PO SCH (10:12)
[2018-04-14] MEDS: APIXABAN 5 MG TABLET. PO SCH (10:13)
[2018-04-14] MEDS: CARVEDILOL 6.25 MG TABLET PO SCH (10:13)
[2018-04-14 10:14] VITALS: BP 145/84
[2018-04-14] MEDS: PANTOPRAZOLE 40 MG TABLET. PO SCH (10:14)
[2018-04-14] MEDS ORDERED: CEPH-264 PO (10:25)
--- NOTE | 2018-04-22 22:16 | DS ---
DATE OF DISCHARGE: 04/14/2018 HOSPITAL COURSE: Significant pain. She denied any chest pain or shortness of breath, but had pain, generalized all over. This is unrelated to any other recent problem she was having. She had intractable pain. She rated at 10/10. She was unable to get out of bed, and as a result of this, came in through the Emergency Room where the ER physician felt the patient needed to be brought in for further evaluation. She has bilateral diabetic ulcers, but that is not why she was admitted. She was admitted for extreme excruciating pain in multiple joints and the patient otherwise was given IV pain medication with some relief there. She was started on PT, OT and then she was discharged to a nursing facility since she could not take care of herself. IMPRESSION: Intractable pain, generalized pain, history of diabetes, diabetic ulcers, moderate protein malnutrition. PLAN: See MRANabil. Decreased activity. PT, OT as tolerated at the nursing facility out at ____. DINORAH LEWIS MD DR: JOSE/rosie JOB#: [id number] / [id number]
== END 2018-04-14 11:30 | DRG 638 ==
LOC: ER 08:43 → 1 SOUTH 12:07
PROVIDERS: ADMIT Family Medicine; ATTEND Family Medicine
DX: E11.622 Type 2 diabetes mellitus with other skin ulcer (principal); L03.115 Cellulitis of right lower limb; E44.0 Moderate protein-calorie malnutrition; N18.9 Chronic kidney disease, unspecified; D64.9 Anemia, unspecified; E03.9 Hypothyroidism, unspecified; E11.22 Type 2 diabetes mellitus with diabetic chronic kidney disease; E66.01 Morbid (severe) obesity due to excess calories; I12.9 Hypertensive chronic kidney disease with stage 1 through stage 4 chronic kidney disease, or unspecified chronic kidney disease; Z96.653 Presence of artificial knee joint, bilateral; I48.91 Unspecified atrial fibrillation; Z86.73 Personal history of transient ischemic attack (TIA), and cerebral infarction without residual deficits; Z68.34 Body mass index [BMI] 34.0-34.9, adult; Z79.899 Other long term (current) drug therapy; Z90.710 Acquired absence of both cervix and uterus; Z90.722 Acquired absence of ovaries, bilateral; Z88.5 Allergy status to narcotic agent; Z90.49 Acquired absence of other specified parts of digestive tract; L98.499 Non-pressure chronic ulcer of skin of other sites with unspecified severity
CPT/HCPCS: 36415; 71045; 80053; 82947; 83605; 85025; 87040; 93005; 96374; J3010; 99285-25

== ENCOUNTER 2018-06-05 16:15 | Inpatient (IN) | payer MEDICARE, BC ==
[~2018-06-05] VITALS: Ht 167.6 cm; Wt 90.4 kg
[2018-06-05] MEDS ORDERED: IV NORMAL SALINE 1,000ML 1,000 ML IV ONE (16:45)
--- NOTE | 2018-06-05 16:57 | PHYS DOC ---
Past History Past Medical History: Diabetes, Hypertension, TIA, Other Past Surgical History: Cholecystectomy, , Hysterectomy, Other Smoking: Non-smoker Alcohol Use: Occasionally Drug Use: None Adult General Chief Complaint Chief Complaint: MULTIPLE COMPLAINTS HPI HPI 82-year-old female presents at the recommendation of Dr. Culp's office for atrial fibrillation and right ankle wound. The EKG in the office showed the patient to be in A. fib and her rate was greater than 100 she also has a large 8 cm ulcer on the lateral right ankle. The patient tells me that the original wound in this area was back in the 70s. She had recent trauma to the skin a few weeks ago and the ulcer developed. The patient has not had a fever at home. She is diabetic. She also mentions a couple of other small ulcers on her toes on the other foot. She has not been seen wound care. She was in a [facility] recently, but signed herself out because she does not like it. The patient believes she has been diagnosed with A. fib in the past, but is unsure if she takes medication for it. Review of Systems Review of Systems Constitutional: Denies fever or chills [] Eyes: Denies change in visual acuity, redness, or eye pain [] HENT: Denies nasal congestion or sore throat [] Respiratory: Denies cough or shortness of breath [] Cardiovascular: No additional information not addressed in HPI [] GI: Denies abdominal pain, nausea, vomiting, bloody stools or diarrhea [] : Denies dysuria or hematuria [] Musculoskeletal: Denies back pain or joint pain [] Integument: Ulcer of the right lateral and left toes.[] Neurologic: Denies headache, focal weakness or sensory changes [] Endocrine: Denies polyuria or polydipsia [] All other systems were reviewed and found to be within normal limits, except as documented in this note. Current Medications Current Medications Current Medications Medications (Trade) Dose Ordered Sig/Ally Start Time Stop Time Status Last Admin Dose Admin Sodium Chloride 1,000 ml @ 1,000 mls/hr 1X ONCE 06/05/18 16:45 06/05/18 17:44 Allergies Allergies Allergies Coded Allergies Type Severity Reaction Last Updated Verified morphine Allergy Intermediate RASH 11/08/17 Yes Physical Exam Physical Exam Constitutional: Well developed, well nourished, no acute distress, non-toxic appearance. [] HENT: Normocephalic, atraumatic, bilateral external ears normal, oropharynx moist, no oral exudates, nose normal. [] Eyes: PERRLA, EOMI, conjunctiva normal, no discharge. [] Neck: Normal range of motion, no tenderness, supple, no stridor. [] Cardiovascular:Heart rate 114, irregular rhythm, no murmur [] Lungs & Thorax: Bilateral breath sounds clear to auscultation [] Abdomen: Bowel sounds normal, soft, no tenderness, no masses, no pulsatile masses. [] Skin: 8 cm ulcer on the right lateral ankle. Surrounding skin is pink, but not erythematous or warm. Small ulcers on the top of the second and third toes of the left foot. No overt signs of infection.[] Back: No tenderness, no CVA tenderness. [] Extremities: No tenderness, no cyanosis, no clubbing, ROM intact, no edema. [] Neurologic: Alert and oriented X 3, normal motor function, normal sensory function, no focal deficits noted. [] Psychologic: Affect normal, judgement normal, mood normal. [] Current Patient Data Vital Signs Vital Signs Date Time Temp Pulse Resp B/P (MAP) Pulse Ox O2 Delivery O2 Flow Rate FiO2 06/05/18 16:27 97.9 107 15 96 Room Air EKG EKG Irregular rhythm, rate 94, rightward axis, no ST elevations or depressions, right bundle branch block.[] Radiology/Procedures Radiology/Procedures [] Course & Med Decision Making Course & Med Decision Making Pertinent Labs and Imaging studies reviewed. (See chart for details) Patient's labs are unremarkable. Blood sugar 105. The patient's EKG does show her to be in atrial fibrillation. He is running 110-120 for heart rate. I will give her 20mg of Cardizem IV. Dr. Culp's office would like the patient admitted. I believe this is reasonable as her heart rate is not controlled this time. I discussed the patient with Dr. Culp and he has agreed to admit the patient. [] Dragon Disclaimer Dragon Disclaimer This electronic medical record was generated, in whole or in part, using a voice recognition dictation system. Departure Departure: Impression: Primary Impression: Atrial fibrillation Additional Impression: Diabetic ulcer of right lower leg Disposition: ADMITTED INPATIENT Condition: STABLE Referrals: DINORAH CULP MD (PCP) Problem Qualifiers Primary Impression: Atrial fibrillation Atrial fibrillation type: chronic Qualified Codes: I48.2 - Chronic atrial fibrillation ESTHELA GARCIA DO Jun 05, 2018 16:57
[2018-06-05 17:20] LABS: BASO % 1 % (0-3); EOS % 1 % (0-3); HEMATOCRIT 36.1 % (36.0-47.0); HEMOGLOBIN 11.4 g/dL (12.0-15.5); LYMPH # 0.8 x10^3/uL (1.0-4.8); LYMPH % 19 % (24-48); MEAN CORPUSCULAR HEMOGLOBIN 27 pg (25-35); MEAN CORPUSCULAR HGB CONC 32 g/dL (31-37); MEAN CORPUSCULAR VOLUME 87 fL (79-100); MONO # 0.3 x10^3/uL (0.0-1.1); MONO % 7 % (0-9); NEUT # 3.4 x10^3uL (1.8-7.7); NEUT % 74 % (31-73); PLATELET COUNT 144 x10^3/uL (140-400); RED BLOOD COUNT 4.15 x10^6/uL (3.50-5.40); RED CELL DISTRIBUTION WIDTH 19.1 % (11.5-14.5); WHITE BLOOD COUNT 4.6 x10^3/uL (4.0-11.0)
--- NOTE | 2018-06-05 17:22 | EKG ---
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
--- NOTE | 2018-06-05 17:45 | RAD ---
EXAM: AP View of the chest DATE: 06/05/2018 4:35 PM INDICATION: AFIB COMPARISON: 04/13/2018 FINDINGS: Moderate cardiomegaly. Atherosclerotic calcifications of the tortuous aorta are seen. A new nodular 1.6 cm opacity seen in the left suprahilar region. Bibasilar airspace opacities are seen, possibly atelectasis. No pleural effusion or pneumothorax. IMPRESSION: 1.6 cm opacity in the left suprahilar region, this could represent summation artifact as no definite mass was seen on prior CT from 04/09/2018. Patchy bibasilar opacities, likely atelectasis. Electronically signed by: Yaniv Wang MD (06/05/2018 5:42 PM) [id number]
[2018-06-05] MEDS ORDERED: dilTIAZem 25 MG/5 ML VIAL IVP ONE (18:00)
[2018-06-05] MEDS ORDERED: ACETAMINOPHEN/CODEINE 300/30MG TABLET PO ONE (18:15)
[2018-06-05 18:16] LABS: ALBUMIN 3.6 g/dL (3.4-5.0); ALBUMIN/GLOBULIN RATIO 0.7 (1.0-1.7); CALCIUM 9.2 mg/dL (8.5-10.1); CREATININE 1.1 mg/dL (0.6-1.0); GFR 47.4; POTASSIUM 4.4 mmol/L (3.5-5.1); TOTAL BILIRUBIN 0.4 mg/dL (0.2-1.0); TOTAL PROTEIN 8.5 g/dL (6.4-8.2)
[2018-06-05] MEDS ORDERED: ONDANSETRON PF 4 MG/2 ML VIAL. IV PRN (18:30)
[2018-06-05 18:48] LABS: BILIRUBIN,URINE NEG (NEG); CLARITY,URINE CLEAR; COLOR,URINE YELLOW; GLUCOSE,URINE NEG (NEG)
[2018-06-05 18:49] LABS: BACTERIA,URINE FEW /HPF (0-FEW); NITRITE,URINE NEG (NEG); RBC,URINE 0 /HPF (0-2); SQUAMOUS EPITHELIAL CELL,UR FEW /LPF; UROBILINOGEN,URINE 1 mg/dL (0.2 mg/dL); WBC,URINE 0 /HPF (0-4)
--- NOTE | 2018-06-05 20:05 | NUR ---
Pt admitted from ER to [facility] room 107 via [facility], accompanied by EMS and nursing staff. Pt transferred from [facility] to bed x3 assist. Admission assessment completed. VSS. Pt placed on Tele, AFib noted on monitor. Health history & home medications reviewed with pt. Pt recently left [facility] for wound care, now lives at home with . Pt with maceration under breast, wounds to right lower leg and left 3rd toe, photos taken and placed in chart. Eliquis for VTE. PT/OT, wound and CM consulted in computer. POC reviewed with pt, understanding verbalized. The patient was given written information regarding hospital policies, unit procedures and contact persons. Valuables were checked and left at bedside. Call light within reach.
[2018-06-05 20:10] VITALS: BP 183/93
[2018-06-05] MEDS ORDERED: MELA3TAB2 PO (20:20)
[2018-06-05] MEDS ORDERED: CELE100C59 PO (20:25)
[2018-06-05] MEDS ORDERED: HYDROcodone/APAP 7.5/325MG 1 TAB TABLET PO PRN (20:30)
[2018-06-05] MEDS ORDERED: ACETAMINOPHEN 325 MG TABLET PO PRN (20:45)
[2018-06-05] MEDS: LACTOBACILLUS RHAMNOSUS GG 1 CAPSULE. PO SCH (21:45)
[2018-06-05] MEDS: HYDROcodone/APAP 7.5/325MG 1 TAB TABLET PO PRN (21:45)
[2018-06-05] MEDS: NYSTATIN TOPICAL POWDER 15GM BOTTLE. TP SCH (21:45)
[2018-06-05] MEDS: MELATONIN 3 MG TABLET PO SCH (21:46)
[2018-06-05] MEDS: METOPROLOL SUCC 24HR ER 50 MG TAB.ER.24H. PO SCH (21:46)
[2018-06-05] MEDS: PRAVASTATIN 20 MG TABLET. PO SCH (21:46)
[2018-06-05] MEDS: PATCH REMOVAL. MC SCH (21:47)
[2018-06-05 22:24] VITALS: BP 149/75
[2018-06-06 04:58] VITALS: BP 135/69
[2018-06-06] MEDS: CARVEDILOL 6.25 MG TABLET PO SCH ×2 (08:00→17:00)
[2018-06-06] MEDS: CELECOXIB 100 MG CAPSULE PO SCH (08:35)
[2018-06-06] MEDS: PANTOPRAZOLE 40 MG TABLET. PO SCH ×2 (08:36→17:19)
[2018-06-06] MEDS: APIXABAN 5 MG TABLET. PO SCH ×2 (08:36→20:31)
[2018-06-06] MEDS: FUROSEMIDE 40 MG TABLET PO SCH (08:36)
[2018-06-06] MEDS: POTASSIUM CHLORIDE 10 MEQ TABLET.ER. PO SCH (08:37)
[2018-06-06] MEDS: LACTOBACILLUS RHAMNOSUS GG 1 CAPSULE. PO SCH ×2 (08:39→20:30)
[2018-06-06] MEDS: LIDOCAINE (700MG/PATCH) PATCH. TD SCH (08:44)
[2018-06-06] MEDS: NYSTATIN TOPICAL POWDER 15GM BOTTLE. TP SCH ×2 (08:44→21:33)
[2018-06-06] MEDS: amLODIPine BESYLATE 2.5 MG TABLET PO SCH (08:44)
[2018-06-06] MEDS: glyBURIDE 5 MG TABLET PO SCH (08:45)
[2018-06-06] MEDS: METOPROLOL SUCC 24HR ER 50 MG TAB.ER.24H. PO SCH ×2 (09:00→20:34)
[2018-06-06 10:01] VITALS: BP 142/72
--- NOTE | 2018-06-06 13:00 | PDOC2 ---
DOV JAUREGUI APRN 06/06/18 1300: CONSULT Date of Admission DATE: 06/06/18 TIME: 13:00 Reason for Consult: afib, bradycardia Problem List Problems Medical Problems: (1) Atrial fibrillation Status: Acute History of Present Illness Ms Sherman is an 82-year-old female who presented to the ED on advice of her PCP. She apparently went to office for evaluation of a wound on her leg and was found to be in atrial fib with RVR. She is a very poor historian and actually spent the majority of face to face time talking about a recent longterm stay. She denies chest pain or palpitations. She is visibly dyspnic but denies shortness of breath. She denies edema. She denies palpitations or lightheadedness. She was noted to have a large 8 cm ulcer on the lateral right ankle while in the ER . She reports injury many years ago and recent development of a sore. She denies fever or chills. She was in atrial fibrillation on arrival to ED with heart rate >100bpm. She was given IV cardizem and admitted to the floor for evaluation and treatment. On arrival to the floor she developed bradycardia with > 2 second R-R intervals. Subsequently all rate control medications were held. Currently her heart rate is controlled. The majority of past medical history is obtained from the chart. Past Medical History 1. Atrial fibrillation, previously on anticoagulation with Eliquis. 2. Diastolic heart failure. 3. Prior history of TIA and CVA. 4. Type 2 diabetes. Cardiovascular: AFIB, CAD, CHF, hyperipidemia CENTRAL NERVOUS SYSTEM: CVA, TIA GI: GERD Musculoskeletal: Osteoarthritis Endocrine: Diabetes, Hyperthyroidism Past Surgical History: Cholecystectomy, , Total knee replacement, Hysterectomy Family History non contributory Social History The patient denies any alcohol, tobacco, or illicit drug use Current Medications Current Medications Sodium Chloride 1,000 ml @ 1,000 mls/hr 1X ONCE IV Last administered on at 16:57; Start 06/05/18 at 16:45; Stop 06/05/18 at 17:44; Status DC Diltiazem HCl (Cardizem Iv Push) 20 mg 1X ONCE IVP Last administered on at 18:07; Start 06/05/18 at 18:00; Stop 06/05/18 at 18:01; Status DC Acetaminophen/ Codeine Phosphate (Tylenol #3) 1 tab 1X ONCE PO Last administered on 06/05/18 18:06; Start 06/05/18 at 18:15; Stop 06/05/18 at 18:16; Status DC Ondansetron HCl (Zofran) 4 mg PRN Q4HRS PRN IV NAUSEA/VOMITING; Start 06/05/18 at 18:30; Stop 06/06/18 at 18:29 Acetaminophen/ Hydrocodone Bitart (Lortab 7.5/325) 1 tab PRN Q6HRS PRN PO PAIN Last administered on 06/05/18 21:45; Start 06/05/18 at 20:30 Acetaminophen/ Hydrocodone Bitart (Lortab 7.5/325) 2 tab PRN Q6HRS PRN PO PAIN ; Start 06/05/18 at 20:30 Lactobacillus Rhamnosus (Culturelle) 1 cap BID PO Last administered on 08:39; Start 06/05/18 at 21:00 Nystatin (Nystop) 1 ashtyn BID TP Last administered on 06/06/18 08:44; Start at 21:00 Pravastatin Sodium (Pravachol) 20 mg QHS PO Last administered on 06/05/18 21:46 ; Start 06/05/18 at 21:00 Acetaminophen (Tylenol) 650 mg PRN Q6HRS PRN PO PAIN / TEMP; Start 06/05/18 at 20:45 Apixaban (Eliquis) 5 mg BID PO Last administered on 06/06/18 08:36; Start at 09:00 Carvedilol (Coreg) 6.25 mg BIDWMEALS PO ; Start 06/06/18 at 08:00 Amlodipine Besylate (Norvasc) 2.5 mg DAILY PO Last administered on 06/06/18 08: 44; Start 06/06/18 at 09:00 Furosemide (Lasix) 40 mg DAILY PO Last administered on 06/06/18 08:36; Start at 09:00 Glyburide (Diabeta) 2.5 mg DAILYWBKFT PO Last administered on 06/06/18 08:45; Start 06/06/18 at 08:00 Hydralazine HCl (Apresoline) 50 mg TID PO Last administered on 06/06/18 08:40; Start 06/05/18 at 21:00 Lidocaine (Lidoderm) 1 patch DAILY TD Last administered on 06/06/18 08:44; Start 06/06/18 at 09:00 Melatonin 3 mg HS PO Last administered on 06/05/18 21:46; Start 06/05/18 at 21: 00 Metoprolol Succinate (Toprol Xl) 50 mg BID PO Last administered on 06/05/18 21: 46; Start 06/05/18 at 21:00 Pantoprazole Sodium (Protonix) 40 mg BIDBFRMEAL PO Last administered on 08:36; Start 06/06/18 at 07:30 Potassium Chloride (Klor-Con) 10 meq DAILYWBKFT PO Last administered on 08:37; Start 06/06/18 at 08:00 Celecoxib (CeleBREX) 100 mg DAILY PO Last administered on 06/06/18 08:35; Start 06/06/18 at 09:00 Miscellaneous (Lidoderm Patch Removal) 1 ea QHS MC Last administered on 21:47; Start 06/05/18 at 21:00 Active Scripts Active Hydralazine Hcl 25 Mg Tablet 50 Mg PO TID 30 Days Culturelle (Lactobacillus Rhamnosus Gg) 1 Each Cap.sprink 1 Cap PO BID 14 Days Hydrocodone-Apap 7.5-325 (Hydrocodone Bit/Acetaminophen) 1 Each Tablet 2 Tab PO PRN Q6HRS PRN Metoprolol Succinate ( Xl ) (Metoprolol Succinate) 50 Mg Tab.er.24h 50 Mg PO BID 30 Days Carvedilol 6.25 Mg Tablet 6.25 Mg PO BID 30 Days Nystatin 15 Gm Powder 1 Ashtyn TP BID Reported Celecoxib 100 Mg Capsule 100 Mg PO DAILY LAST DOSE GIVEN: DATE: TIME: NEXT DOSE DUE: DATE: TIME: Melatonin 3 Mg Tablet 3 Mg PO QHS Arthritis Pain (Acetaminophen) 650 Mg Tablet.er 650 Mg PO Q6HRS PRN NOT GIVEN THIS ADMISSION NEXT DOSE DUE: DATE: TODAY TIME: IF/WHEN NEEDED Potassium Chloride 10 Meq Tablet.er 1 Tab PO DAILY LAST DOSE GIVEN: DATE: TODAY TIME: AM NEXT DOSE DUE: DATE: TOMORROW TIME: AM Furosemide 40 Mg Tablet 1 Tab PO DAILY LAST DOSE GIVEN: DATE: TODAY TIME: AM NEXT DOSE DUE: DATE: TOMORROW TIME: AM Felodipine Er (Felodipine) 2.5 Mg Tab.er.24h 1 Tab PO DAILY LAST DOSE GIVEN: DATE: TODAY TIME: AM NEXT DOSE DUE: DATE: TOMORROW TIME: AM Hydrocodone-Apap 7.5-325 (Hydrocodone Bit/Acetaminophen) 1 Each Tablet 1 Tab PO Q6HRS PRN LAST DOSE GIVEN: DATE: TIME: NEXT DOSE DUE: DATE: TIME: Lidoderm (Lidocaine) 700 Mg Adh..patch 1 Patch TP DAILY LAST DOSE GIVEN: DATE: TODAY TIME: AM NEXT DOSE DUE: DATE: TOMORR TIME: AM Pravastatin Sodium 20 Mg Tablet 20 Mg PO QHS LAST DOSE GIVEN: DATE: YESTER TIME: BEDTIME NEXT DOSE DUE: DATE: TODAY TIME: BEDTIME Pantoprazole Sodium 40 Mg Tablet.dr 1 Tab PO BID LAST DOSE GIVEN: DATE: TIME: AM NEXT DOSE DUE: DATE: TODAY TIME: PM Glyburide 2.5 Mg Tablet 1 Tab PO DAILY LAST DOSE GIVEN: DATE: TODAY TIME: AM NEXT DOSE DUE: DATE: TOMORR TIME: AM Eliquis (Apixaban) 5 Mg Tablet 5 Mg PO BID LAST DOSE GIVEN: DATE: TIME: AM NEXT DOSE DUE: DATE: TODAY TIME: PM Allergies: Coded Allergies: morphine (Verified Allergy, Intermediate, RASH, 11/08/17) Review of System as per HPI otherwise negative but difficult to obtain as she is a very poor historian General: Alert, Cooperative, mild distress HEENT: Atraumatic, EOMI, Mucous membr. moist/pink, Other (+HJR) Lungs: Other (bibasilar crackles) Abdomen: Normal bowel sounds, Soft, No tenderness Extremities: Other (1+ non pitting edema, ulcer right lateral ankle and small ulcerations 2nd and 3rd toes left foot) Neuro: Normal speech, Strength at 5/5 X4 ext Psych/Mental Status: Other VITALS Vital Signs Date Time Temp Pulse Resp B/P (MAP) Pulse Ox O2 Delivery O2 Flow Rate FiO2 06/06/18 10:01 97.6 55 20 142/72 (95) 96 Nasal Cannula 2.0 Labs Laboratory Tests Test 06/05/18 17:00 06/05/18 17:06 4/4/19 18:20 06/05/18 20:18 White Blood Count 4.6 x10^3/uL (4.0-11.0) Red Blood Count 4.15 x10^6/uL (3.50-5.40) Hemoglobin 11.4 g/dL (12.0-15.5) Hematocrit 36.1 % (36.0-47.0) Mean Corpuscular Volume 87 fL (79-100) Mean Corpuscular Hemoglobin 27 pg (25-35) Mean Corpuscular Hemoglobin Concent 32 g/dL (31-37) Red Cell Distribution Width 19.1 % (11.5-14.5) Platelet Count 144 x10^3/uL (140-400) Neutrophils (%) (Auto) 74 % (31-73) Lymphocytes (%) (Auto) 19 % (24-48) Monocytes (%) (Auto) 7 % (0-9) Eosinophils (%) (Auto) 1 % (0-3) Basophils (%) (Auto) 1 % (0-3) Neutrophils # (Auto) 3.4 x10^3uL (1.8-7.7) Lymphocytes # (Auto) 0.8 x10^3/uL (1.0-4.8) Monocytes # (Auto) 0.3 x10^3/uL (0.0-1.1) Eosinophils # (Auto) 0.0 x10^3/uL (0.0-0.7) Basophils # (Auto) 0.0 x10^3/uL (0.0-0.2) Sodium Level 141 mmol/L (136-145) Potassium Level 4.4 mmol/L (3.5-5.1) Chloride Level 104 mmol/L (98-107) Carbon Dioxide Level 25 mmol/L (21-32) Anion Gap 12 (6-14) Blood Urea Nitrogen 20 mg/dL (7-20) Creatinine 1.1 mg/dL (0.6-1.0) Estimated GFR (Cockcroft-Gault) 47.4 BUN/Creatinine Ratio 18 (6-20) Glucose Level 103 mg/dL (70-99) Lactic Acid Level 1.1 mmol/L (0.4-2.0) Calcium Level 9.2 mg/dL (8.5-10.1) Total Bilirubin 0.4 mg/dL (0.2-1.0) Aspartate Amino Transf (AST/SGOT) 24 U/L (15-37) Alanine Aminotransferase (ALT/SGPT) 15 U/L (14-59) Alkaline Phosphatase 102 U/L (46-116) Troponin I Quantitative < 0.017 ng/mL (0-0.055) Total Protein 8.5 g/dL (6.4-8.2) Albumin 3.6 g/dL (3.4-5.0) Albumin/Globulin Ratio 0.7 (1.0-1.7) Glucose (Fingerstick) 105 mg/dL (70-99) 148 mg/dL (70-99) Urine Collection Type Unknown Urine Color Yellow Urine Clarity Clear Urine pH 7.0 Urine Specific Jackson 1.020 Urine Protein 100 mg/dl (NEG-TRACE) Urine Glucose (UA) Neg mg/dL (NEG) Urine Ketones (Stick) Neg mg/dL (NEG) Urine Blood Trace (NEG) Urine Nitrite Neg (NEG) Urine Bilirubin Neg (NEG) Urine Urobilinogen Dipstick 1 mg/dL (0.2 mg/dL) Urine Leukocyte Esterase Neg (NEG) Urine RBC 0 /HPF (0-2) Urine WBC 0 /HPF (0-4) Urine Squamous Epithelial Cells Few /LPF Urine Bacteria Few /HPF (0-FEW) Test 06/06/18 12:34 Glucose (Fingerstick) 56 mg/dL (70-99) Images CXR -IMPRESSION: 1.6 cm opacity in the left suprahilar region, this could represent summation artifact as no definite mass was seen on prior CT from 04/09/2018. Patchy bibasilar opacities, likely atelectasis. CXR - IMPRESSION: 1. Cardiomegaly with aortic atherosclerosis. 2. Mild streaky bibasilar opacities probably due to fibrosis, although a component of atelectasis/pneumonitis cannot be excluded. Echo - The left ventricle is normal size. Left ventricle systolic function is low normal. The Ejection Fraction is estimated at 50%. There is mild concentric left ventricular hypertrophy. There is no significant aortic valvular stenosis. Doppler and Color Flow revealed no significant aortic regurgitation. Doppler and Color-flow revealed mild mitral regurgitation. Doppler and Color Flow revealed mild tricuspid regurgitation. The PA pressure was >55 mmHg. Assessment/Plan 1. atrial fibrillation with RVR, s/p cardizem and subsequent bradycardia. Currently rate controlled. resume home meds slowly as tolerated. 2. dyspnea, cxr showing prob fibrosis and moderate to severe PHTN by echo. 3. HTN - resume home meds 4. CAD - consider outpatient MPI for progression. 5. Hyperlipidemia - check lipids 6. PVD - wound care as per PCP, check arterial duplex or JORDAN. Will discontinue coreg as EF is normal and continue metoprolol for AF rate control. Will change to daily dosing to minimize difficulty for the patient to manage at home. Will add Losartan for afterload reduction. Suggest minimize number of meds and times dosing to simplify for patient. Consider decrease or discontinue hydralazine as blood pressure control allows. Will need outpatient pulmonary evaluation and sleep study. Thank you for the opportunity to participate in the care of this pleasant patient. feel free to call with any questions or concerns. JACOB CARNEY MD 06/06/182028: CONSULT Assessment/Plan Patient seen and examined. Agree with PLATE STACKER's assessment and plan. Perm atrial fib rate controlled 2D echo showed EF 50% Agree with lower extremity arterial duplex and venous reflux study as outpatient Thank you for your consultation DOV JAUREGUI APRN Jun 06, 2018 13:00 JACOB CARNEY MD Jun 06, 2018 20:29
[2018-06-06 15:00] VITALS: BP 145/78
--- NOTE | 2018-06-06 15:40 | RAD ---
Chest, 2 views, 06/06/2018: HISTORY: Dyspnea, CHF Comparison is made to a study from 06/05/2018. The heart is enlarged. There is calcific plaquing and tortuosity of the thoracic aorta. A calcified granuloma is present laterally in the left. There are prominent streaky basilar pulmonary markings suggesting fibrosis and/or atelectasis. The upper lung mendez are clear. No significant pleural fluid is evident. Scattered degenerative changes are present in the spine. IMPRESSION: 1. Cardiomegaly with aortic atherosclerosis. 2. Mild streaky bibasilar opacities probably due to fibrosis, although a component of atelectasis/pneumonitis cannot be excluded. Electronically signed by: Vernon Santos MD (06/06/2018 3:37 PM) [facility]
--- NOTE | 2018-06-06 15:59 | CARD ---
MR#: [id number] Date of Study: 06/06/2018 Ordering Physician: DOV JAUREGUI, Referring Physician: DINORAH LEWIS, Tech: Judith Zambrano SPENSER APPROVED REPORT EXAM: Two-dimensional and M-mode echocardiogram with Doppler and color Doppler. Other Information Quality : Technically LimitedHR: 60bpm Rhythm : OtherTechnically limited study due to body habitus. INDICATION Congestive Heart Failure 2D DIMENSIONS RVDd4.2 (2.9-3.5cm)Left Atrium(2D)4.2 (1.6-4.0cm) IVSd1.4 (0.7-1.1cm)Aortic Root(2D)2.9 (2.0-3.7cm) LVDd5.3 (3.9-5.9cm)LVOT Diameter2.1 (1.8-2.4cm) PWd1.3 (0.7-1.1cm)LVDs4.1 (2.5-4.0cm) FS (%) 24.2 %SV65.8 ml M-Mode DIMENSIONS Left Atrium(MM)4.57 (2.5-4.0cm)Aortic Root2.97 (2.2-3.7cm) Aortic Valve AoV Peak Vadim.180.4cm/sAoV VTI43.4cm AO Peak GR.13.0mmHgLVOT Peak Vadim.75.6cm/s LVOT VTI 17.39cmAO Mean GR.8mmHg CHUY (VMAX)1.58ud6EZR (VTI)1.41cm2 Mitral Valve MV E Figzblxn27.3cm/sMV DECEL KWQU896dh MV A Ezvmsbki81.0cm/sE/A Ratio3.6 MV A Edzchvva20sc Pulmonary Valve PV Peak Gammfggj522.5cm/sPV Peak Grad.4mmHg Tricuspid Valve TR P. Fmqyxgqo125qd/sRAP YMPGXVXE85ybWj TR Peak Gr.20oiJoDICU56bfHz LEFT VENTRICLE The left ventricle is normal size. There is mild concentric left ventricular hypertrophy. Left ventri molly systolic function is low normal. The Ejection Fraction is estimated at 50%. Transmitral Doppler f low pattern is abnormal. RIGHT VENTRICLE The right ventricle is mildly dilated. There is normal right ventricular wall thickness. Systolic fun ction is borderline reduced. ATRIA The left atrium size is normal. The right atrium is mildly dilated. AORTIC VALVE The aortic valve is trileaflet. The aortic valve is moderately calcified. Doppler and Color Flow reve aled no significant aortic regurgitation. There is no significant aortic valvular stenosis. MITRAL VALVE Mitral annular calcification is mild. There is no evidence of mitral valve prolapse. There is no mitr al valve stenosis. Doppler and Color-flow revealed mild mitral regurgitation. TRICUSPID VALVE The tricuspid valve is normal in structure and function. Doppler and Color Flow revealed mild tricusp id regurgitation. The PA pressure was >55 mmHg. There is no tricuspid valve prolapse or vegetation. T here is no tricuspid valve stenosis. PULMONIC VALVE The pulmonary valve is normal in structure and function. Doppler and Color Flow revealed mild to mode rate pulmonic valvular regurgitation. There is no pulmonic valvular stenosis. GREAT VESSELS The aortic root is normal in size. The ascending aorta is normal in size. The IVC is dilated. PERICARDIAL EFFUSION There is no evidence of significant pericardial effusion. Critical Notification Critical Value: No <Conclusion> The left ventricle is normal size. Left ventricle systolic function is low normal. The Ejection Fraction is estimated at 50%. There is mild concentric left ventricular hypertrophy. There is no significant aortic valvular stenosis. Doppler and Color Flow revealed no significant aortic regurgitation. Doppler and Color-flow revealed mild mitral regurgitation. Doppler and Color Flow revealed mild tricuspid regurgitation. The PA pressure was >55 mmHg. Signed by : Jose Oneill MD Electronically Approved : 06/06/2018 15:58:40
--- NOTE | 2018-06-06 19:03 | HP ---
ADMIT DATE: 06/05/2018 HISTORY OF PRESENT ILLNESS: An 82-year-old female who came in through the Emergency Room. Apparently, she was having some problems with atrial fibrillation. More importantly, she also had right ankle wound, which was not healing, but her atrial fibrillation, apparently went up to about 140-150 while in the Emergency Room. I gave her a dose of Cardizem that slowed it down and brought her under control. As a result of this, the patient was admitted for atrial fibrillation with rapid ventricular response. The patient was also having some discomfort and some tightness in her chest and Cardiology would be evaluated. PAST MEDICAL HISTORY: TIA, heart attacks, congestive heart failure, hypercholesterolemia, chronic Eliquis therapy, abdominal , cholecystectomy, arthritis, osteoarthritis, joint replacement, back pain, hypothyroidism. Chronic right lower leg pain with venous stasis as well. IMMUNIZATIONS: For influenza and pneumococcal are all up to date. ALLERGIES: MORPHINE. FAMILY HISTORY: Due to cancer in a brother. SOCIAL HISTORY: Denies smoking, alcohol, or drug use. He is a full code. REVIEW OF SYSTEMS: The patient denies any recent weight loss, weight gain, or changes in bowel. Denies any melena, hematochezia, and hematemesis and neurologically, the patient is alert and oriented x 3. PHYSICAL EXAMINATION: GENERAL: Pleasant white female, moderate amount of distress. VITAL SIGNS: Blood pressure 142/72, respiratory rate 18, pulse as high as 120. The patient is afebrile, oxygen saturation 95%. HEENT: The patient's head was atraumatic, normocephalic. Eyes: PERRLA without jaundice. The mouth and throat were normal. NECK: Supple, no JVD or carotid bruits. No thyromegaly. LUNGS: Diminished throughout, poor movement of air. CARDIOVASCULAR: Irregularly irregular rhythm, S1, S2, without murmur, rub, thrill, or extra heart sound. ABDOMEN: Soft, nontender, no rebounding or guarding. Positive bowel sounds, no hepatosplenomegaly was noted. EXTREMITIES: No clubbing, cyanosis, nor edema. NEUROLOGIC: The patient was alert and oriented x 3. Speech fluent. Cranial nerves 2-12 were grossly intact. MEDICATIONS: The patient's medications were reviewed on the reconciliation and reconciled per that. LABORATORY DATA: The patient's CBC was basically stable. Electrolytes were also stable except in terms of sodium 144.4, creatinine 1.1. The patient otherwise is resting comfortably there. The patient will be admitted for further evaluation. Cardiac enzymes, monitor atrial fibrillation with rapid ventricular response, make further evaluation also chronic venous stasis ulcers as well as have Cardiology review or make further evaluation on her as indicated. DINORAH LEWIS MD DR: JOSE/rosie JOB#: [id number] / [id number]
--- NOTE | 2018-06-06 19:05 | NUR ---
Wound Care Wound care consult for multiple wounds. Pt has stasis ulcer on r leg and multiple DFUs to BLE. Cleaned wounds and redressed; L lat ankle and L 3rd toe with HFB, contact layer, ABD and kerlix. All other wounds dressed with contact layer and gauze or foam. Supplies for Saturday dressing change left in room. No other wounds noted on full skin inspection. Pt educated on PU prevention and need for follow up wound care. WC will continue to follow for possible changes.
[2018-06-06 19:25] VITALS: BP 160/85
[2018-06-06] MEDS: PRAVASTATIN 20 MG TABLET. PO SCH (20:31)
[2018-06-06] MEDS: MELATONIN 3 MG TABLET PO SCH (20:31)
--- NOTE | 2018-06-06 20:38 | NUR ---
Nayeli called and said to give patient her HS metoprolol and she was adjusting her dose to 100mg once daily starting in the morning.
[2018-06-06] MEDS: PATCH REMOVAL. MC SCH (21:00)
[2018-06-06] MEDS: HYDROcodone/APAP 7.5/325MG 1 TAB TABLET PO PRN (21:31)
[2018-06-06 23:47] VITALS: BP 178/92
[2018-06-07] MEDS ORDERED: DEXTROSE 50% 25 GM / 50ML DISP.SYRIN. IV PRN (02:15)
[2018-06-07 06:11] VITALS: BP 112/60
[2018-06-07 06:31] LABS: BASO % 1 % (0-3); EOS % 1 % (0-3); HEMATOCRIT 31.6 % (36.0-47.0); LYMPH # 0.9 x10^3/uL (1.0-4.8); LYMPH % 24 % (24-48); MEAN CORPUSCULAR HEMOGLOBIN 27 pg (25-35); MEAN CORPUSCULAR HGB CONC 32 g/dL (31-37); MEAN CORPUSCULAR VOLUME 86 fL (79-100); MONO # 0.4 x10^3/uL (0.0-1.1); MONO % 10 % (0-9); NEUT # 2.4 x10^3uL (1.8-7.7); NEUT % 65 % (31-73); PLATELET COUNT 115 x10^3/uL (140-400); RED BLOOD COUNT 3.65 x10^6/uL (3.50-5.40); RED CELL DISTRIBUTION WIDTH 19.4 % (11.5-14.5); WHITE BLOOD COUNT 3.7 x10^3/uL (4.0-11.0)
[2018-06-07 07:00] LABS: GFR 42.9; POTASSIUM 4.3 mmol/L (3.5-5.1); TOTAL BILIRUBIN 0.2 mg/dL (0.2-1.0); TOTAL PROTEIN 6.8 g/dL (6.4-8.2)
[2018-06-07 07:06] LABS: ALBUMIN 2.7 g/dL (3.4-5.0); ALBUMIN/GLOBULIN RATIO 0.7 (1.0-1.7); CALCIUM 8.7 mg/dL (8.5-10.1); CREATININE 1.2 mg/dL (0.6-1.0)
[2018-06-07] MEDS: glyBURIDE 5 MG TABLET PO SCH (08:00)
[2018-06-07] MEDS: LACTOBACILLUS RHAMNOSUS GG 1 CAPSULE. PO SCH ×2 (08:36→21:04)
[2018-06-07] MEDS: POTASSIUM CHLORIDE 10 MEQ TABLET.ER. PO SCH (08:36)
[2018-06-07] MEDS: CELECOXIB 100 MG CAPSULE PO SCH (08:36)
[2018-06-07] MEDS: PANTOPRAZOLE 40 MG TABLET. PO SCH ×2 (08:37→16:30)
[2018-06-07] MEDS: APIXABAN 5 MG TABLET. PO SCH ×2 (08:37→21:04)
[2018-06-07] MEDS: LIDOCAINE (700MG/PATCH) PATCH. TD SCH (08:38)
[2018-06-07] MEDS: LOSARTAN 25 MG TABLET. PO SCH (09:00)
[2018-06-07] MEDS: amLODIPine BESYLATE 2.5 MG TABLET PO SCH (09:00)
[2018-06-07] MEDS: FUROSEMIDE 40 MG TABLET PO SCH (09:00)
[2018-06-07] MEDS: NYSTATIN TOPICAL POWDER 15GM BOTTLE. TP SCH ×2 (09:00→21:00)
[2018-06-07] MEDS ORDERED: METOPROLOL SUCC 24HR ER 50 MG TAB.ER.24H. PO SCH (09:00)
[2018-06-07 10:25] LABS: THYROID STIM HORMONE (TSH) 0.712 uIU/mL (0.358-3.740)
[2018-06-07 10:45] VITALS: BP 124/81
[2018-06-07] MEDS: IV DEXTROSE 10% 1,000 ML IV SCH (11:30)
[2018-06-07 15:21] VITALS: BP 145/86
[2018-06-07 19:05] VITALS: BP 137/83
[2018-06-07] MEDS: PATCH REMOVAL. MC SCH (21:00)
[2018-06-07] MEDS: MELATONIN 3 MG TABLET PO SCH (21:04)
[2018-06-07] MEDS: ACETAMINOPHEN/CODEINE 300/30MG TABLET PO PRN (21:04)
[2018-06-07] MEDS: PRAVASTATIN 20 MG TABLET. PO SCH (21:04)
[2018-06-07] MEDS: hydrALAZINE 25 MG TABLET PO SCH (21:04)
[2018-06-07 23:00] VITALS: BP 153/96
[2018-06-08] VITALS (7 sets, daily range): BP systolic 116–159; BP diastolic 63–96
[2018-06-08] MEDS: IV DEXTROSE 10% 1,000 ML IV SCH ×2 (01:13→14:10)
--- NOTE | 2018-06-08 05:34 | PN ---
DATE: 06/07/2018 SUBJECTIVE: The patient presented with problems with bradycardia, heart rate down into the low 50s. Also blood sugar extremely low, had to discontinue some of her medications, all her medications concerning the oral hypoglycemics, put her on D10, her blood sugar went down as low as 45, gradually has come up to 73. Otherwise, the patient is resting fairly comfortably. She does feel a little bit lightheaded. Her atrial fibrillation seems to be in a better control. OBJECTIVE: VITAL SIGNS: Blood pressure 145/86, respiratory rate 20, pulse 67, afebrile. GENERAL: The patient is alert and oriented. LUNGS: Diminished, but clear. CARDIOVASCULAR: ____ regular rhythm. ABDOMEN: Soft, nontender. EXTREMITIES: Slow with some stasis dermatitis; otherwise atrial fibrillation, rapid ventricular response and now with hypoglycemia. DINORAH LEWIS MD DR: JOSE/rosie JOB#: [id number] / [id number]
[2018-06-08] MEDS: ACETAMINOPHEN/CODEINE 300/30MG TABLET PO PRN ×2 (06:48→21:51)
[2018-06-08] MEDS: PANTOPRAZOLE 40 MG TABLET. PO SCH ×2 (08:03→17:54)
[2018-06-08] MEDS: LACTOBACILLUS RHAMNOSUS GG 1 CAPSULE. PO SCH ×2 (08:04→21:30)
[2018-06-08] MEDS: hydrALAZINE 25 MG TABLET PO SCH (08:04)
[2018-06-08] MEDS: APIXABAN 5 MG TABLET. PO SCH ×2 (08:04→21:31)
[2018-06-08] MEDS: LOSARTAN 25 MG TABLET. PO SCH (08:04)
[2018-06-08] MEDS: FUROSEMIDE 40 MG TABLET PO SCH (08:05)
[2018-06-08] MEDS: CELECOXIB 100 MG CAPSULE PO SCH (08:05)
[2018-06-08] MEDS: POTASSIUM CHLORIDE 10 MEQ TABLET.ER. PO SCH (08:05)
[2018-06-08] MEDS: amLODIPine BESYLATE 2.5 MG TABLET PO SCH (08:05)
[2018-06-08] MEDS: METOPROLOL SUCC 24HR ER 50 MG TAB.ER.24H. PO SCH (08:06)
[2018-06-08] MEDS: LIDOCAINE (700MG/PATCH) PATCH. TD SCH (08:07)
[2018-06-08] MEDS: NYSTATIN TOPICAL POWDER 15GM BOTTLE. TP SCH ×2 (08:08→21:00)
[2018-06-08] MEDS: PATCH REMOVAL. MC SCH (21:00)
[2018-06-08] MEDS: PRAVASTATIN 20 MG TABLET. PO SCH (21:31)
[2018-06-08] MEDS: MELATONIN 3 MG TABLET PO SCH (21:31)
[2018-06-09] MEDS: IV DEXTROSE 10% 1,000 ML IV SCH (02:04)
[2018-06-09 05:49] VITALS: BP 96/61
--- NOTE | 2018-06-09 08:06 | NUR ---
INFORM CASE MANAGEMENT THAT PT AGREES TO GO HOME WITH HOME HEALTH.
[2018-06-09 08:19] VITALS: BP 148/86
[2018-06-09] MEDS: CELECOXIB 100 MG CAPSULE PO SCH (08:35)
[2018-06-09] MEDS: APIXABAN 5 MG TABLET. PO SCH (08:35)
[2018-06-09] MEDS: POTASSIUM CHLORIDE 10 MEQ TABLET.ER. PO SCH (08:35)
[2018-06-09] MEDS: METOPROLOL SUCC 24HR ER 50 MG TAB.ER.24H. PO SCH (08:36)
[2018-06-09] MEDS: FUROSEMIDE 40 MG TABLET PO SCH (08:36)
[2018-06-09] MEDS ORDERED: LOSARTAN 50 MG TABLET. PO SCH (09:00)
[2018-06-09 09:49] LABS: HEMATOCRIT 34.1 % (36.0-47.0); HEMOGLOBIN 10.6 g/dL (12.0-15.5); RED BLOOD COUNT 3.92 x10^6/uL (3.50-5.40); RED CELL DISTRIBUTION WIDTH 19.7 % (11.5-14.5)
--- NOTE | 2018-06-09 09:50 | PDOC ---
PROGRESS NOTES Diagnosis Problem Problems Medical Problems: (1) Atrial fibrillation Status: Acute Assessment Problems Medical Problems: (1) Atrial fibrillation Status: Acute 1. atrial fibrillation with RVR, s/p cardizem and subsequent bradycardia. Remains rate controlled. Continue current medications. 2. PHTN - consider outpatient follow up with pulmonary. 3. HTN - continue current medications. 4. CAD - OP MPI 5. Hyperlipidemia - check lipids 6. PVD - arterial duplex and venous reflux as outpatient. Outpatient follow up in 1 month after above testing. Subjective dressed and "ready to go home", no chest pain, breathing easy, no palpitations or lightheadedness. Objective Vital Signs Date Time Temp Pulse Resp B/P (MAP) Pulse Ox O2 Delivery O2 Flow Rate FiO2 06/09/18 09:19 Room Air 06/09/18 08:36 71 148/86 06/09/18 08:19 97.6 18 93 06/08/18 21:51 2.0 Intake and Output 06/09/18 06:59 Intake Total 960 ml Balance 960 ml Intake Oral 960 ml # Voids 5 # Bowel Movements 3 Physical Exam General: Alert, Cooperative, no acute distress HEENT: Atraumatic, EOMI, Mucous membr. moist/pink Lungs: few bibasilar crackles Abdomen: Normal bowel sounds, Soft, No tenderness Extremities: Other (1+ non pitting edema Review of Relevant I have reviewed the following items zuleika (where applicable) has been applied. Labs Laboratory Tests Test 06/07/18 11:21 06/07/18 16:37 06/07/18 23:08 06/08/18 01:56 Glucose (Fingerstick) 41 mg/dL (70-99) 73 mg/dL (70-99) 110 mg/dL (70-99) 118 mg/dL (70-99) Test 06/08/18 05:43 06/08/18 07:58 06/08/18 11:32 06/08/18 16:27 Glucose (Fingerstick) 112 mg/dL (70-99) 116 mg/dL (70-99) 124 mg/dL (70-99) 158 mg/dL (70-99) Test 06/08/18 19:59 06/09/18 07:23 Glucose (Fingerstick) 174 mg/dL (70-99) 83 mg/dL (70-99) Microbiology 06/05/18 Blood Culture - Preliminary, Resulted NO GROWTH AFTER 3 DAYS... Medications Current Medications Sodium Chloride 1,000 ml @ 1,000 mls/hr 1X ONCE IV Last administered on 16:57; Start 06/05/18 at 16:45; Stop 06/05/18 at 17:44; Status DC Diltiazem HCl (Cardizem Iv Push) 20 mg 1X ONCE IVP Last administered on at 18:07; Start 06/05/18 at 18:00; Stop 06/05/18 at 18:01; Status DC Acetaminophen/ Codeine Phosphate (Tylenol #3) 1 tab 1X ONCE PO Last administered on 06/05/18at 18:06; Start 06/05/18 at 18:15; Stop 06/05/18 at 18:16; Status DC Ondansetron HCl (Zofran) 4 mg PRN Q4HRS PRN IV NAUSEA/VOMITING; Start 06/05/18 at 18:30; Stop 06/06/18 at 18:29; Status DC Acetaminophen/ Hydrocodone Bitart (Lortab 7.5/325) 1 tab PRN Q6HRS PRN PO SEVERE PAIN Last administered on 06/06/18 21:31; Start 06/05/18 at 20:30 Acetaminophen/ Hydrocodone Bitart (Lortab 7.5/325) 2 tab PRN Q6HRS PRN PO SEVERE PAIN; Start 06/05/18 at 20:30 Lactobacillus Rhamnosus (Culturelle) 1 cap BID PO Last administered on at 21:30; Start 06/05/18 at 21:00 Nystatin (Nystop) 1 ashtyn BID TP Last administered on 06/08/18 21:00; Start at 21:00 Pravastatin Sodium (Pravachol) 20 mg QHS PO Last administered on 06/08/18 21:31 ; Start 06/05/18 at 21:00 Acetaminophen (Tylenol) 650 mg PRN Q6HRS PRN PO MILD PAIN/TEMP; Start 06/05/18 at 20:45 Apixaban (Eliquis) 5 mg BID PO Last administered on 06/09/18at 08:35; Start at 09:00 Carvedilol (Coreg) 6.25 mg BIDWMEALS PO ; Start 06/06/18 at 08:00; Stop 06/06/18 at 20:13; Status DC Amlodipine Besylate (Norvasc) 2.5 mg DAILY PO Last administered on 06/08/18 08: 05; Start 06/06/18 at 09:00 Furosemide (Lasix) 40 mg DAILY PO Last administered on 06/09/18 08:36; Start at 09:00 Glyburide (Diabeta) 2.5 mg DAILYWBKFT PO Last administered on 06/06/18 08:45; Start 06/06/18 at 08:00; Stop 06/07/18 at 14:27; Status DC Hydralazine HCl (Apresoline) 50 mg TID PO Last administered on 06/06/18 20:32; Start 06/05/18 at 21:00; Stop 06/07/18 at 14:27; Status DC Lidocaine (Lidoderm) 1 patch DAILY TD Last administered on 06/08/18 08:07; Start 06/06/18 at 09:00 Melatonin 3 mg HS PO Last administered on 06/08/18 21:31; Start 06/05/18 at 21: 00 Metoprolol Succinate (Toprol Xl) 50 mg BID PO Last administered on 06/06/18 20: 34; Start 06/05/18 at 21:00; Stop 06/06/18 at 20:43; Status DC Pantoprazole Sodium (Protonix) 40 mg BIDBFRMEAL PO Last administered on 17:54; Start 06/06/18 at 07:30 Potassium Chloride (Klor-Con) 10 meq DAILYWBKFT PO Last administered on 08:35; Start 06/06/18 at 08:00 Celecoxib (CeleBREX) 100 mg DAILY PO Last administered on 06/09/18 08:35; Start 06/06/18 at 09:00 Miscellaneous (Lidoderm Patch Removal) 1 ea QHS MC Last administered on 21:00; Start 06/05/18 at 21:00 Metoprolol Succinate (Toprol Xl) 100 mg DAILY PO ; Start 06/07/18 at 09:00; Stop 06/07/18 at 14:27; Status DC Losartan Potassium (Cozaar) 25 mg DAILY PO Last administered on 06/08/18 08:04 ; Start 06/07/18 at 09:00; Stop 06/08/18 at 10:31; Status DC Dextrose 12.5 gm PRN Q15MIN PRN IV SEE COMMENTS Last administered on 06/07/18at 02:19; Start 06/07/18 at 02:15 Acetaminophen/ Codeine Phosphate (Tylenol #3) 2 tab PRN Q6HRS PRN PO MODERATE PAIN Last administered on 06/08/18 21:51; Start 06/07/18 at 10:00 Dextrose 1,000 ml @ 75 mls/hr [id number] IV Last administered on 06/08/18at 01:13; Start 06/07/18 at 11:30 Hydralazine HCl (Apresoline) 25 mg TID PO Last administered on 06/08/18at 08:04; Start 06/07/18 at 21:00; Stop 06/08/18 at 10:32; Status DC Metoprolol Succinate (Toprol Xl) 50 mg DAILY PO Last administered on 06/09/18 08:36; Start 06/08/18 at 09:00 Hydralazine HCl (Apresoline) 50 mg TID PO Last administered on 06/08/18 21:30; Start 06/08/18 at 14:00 Losartan Potassium (Cozaar) 50 mg DAILY PO Last administered on 06/09/18 08:35 ; Start 06/09/18 at 09:00 Active Scripts Active Hydralazine Hcl 25 Mg Tablet 50 Mg PO TID 30 Days Culturelle (Lactobacillus Rhamnosus Gg) 1 Each Cap.sprink 1 Cap PO BID 14 Days Hydrocodone-Apap 7.5-325 (Hydrocodone Bit/Acetaminophen) 1 Each Tablet 2 Tab PO PRN Q6HRS PRN Metoprolol Succinate ( Xl ) (Metoprolol Succinate) 50 Mg Tab.er.24h 50 Mg PO BID 30 Days Carvedilol 6.25 Mg Tablet 6.25 Mg PO BID 30 Days Nystatin 15 Gm Powder 1 Ashtyn TP BID Reported Celecoxib 100 Mg Capsule 100 Mg PO DAILY LAST DOSE GIVEN: DATE: TIME: NEXT DOSE DUE: DATE: TIME: Melatonin 3 Mg Tablet 3 Mg PO QHS Arthritis Pain (Acetaminophen) 650 Mg Tablet.er 650 Mg PO Q6HRS PRN NOT GIVEN THIS ADMISSION NEXT DOSE DUE: DATE: TODAY TIME: IF/WHEN NEEDED Potassium Chloride 10 Meq Tablet.er 1 Tab PO DAILY LAST DOSE GIVEN: DATE: TODAY TIME: AM NEXT DOSE DUE: DATE: TOMORROW TIME: AM Furosemide 40 Mg Tablet 1 Tab PO DAILY LAST DOSE GIVEN: DATE: TODAY TIME: AM NEXT DOSE DUE: DATE: TOMORROW TIME: AM Felodipine Er (Felodipine) 2.5 Mg Tab.er.24h 1 Tab PO DAILY LAST DOSE GIVEN: DATE: TODAY TIME: AM NEXT DOSE DUE: DATE: TOMORROW TIME: AM Hydrocodone-Apap 7.5-325 (Hydrocodone Bit/Acetaminophen) 1 Each Tablet 1 Tab PO Q6HRS PRN LAST DOSE GIVEN: DATE: TIME: NEXT DOSE DUE: DATE: TIME: Lidoderm (Lidocaine) 700 Mg Adh..patch 1 Patch TP DAILY LAST DOSE GIVEN: DATE: TIME: AM NEXT DOSE DUE: DATE: TOMORR TIME: AM Pravastatin Sodium 20 Mg Tablet 20 Mg PO QHS LAST DOSE GIVEN: DATE: YESTER TIME: BEDTIME NEXT DOSE DUE: DATE: TODAY TIME: BEDTIME Pantoprazole Sodium 40 Mg Tablet.dr 1 Tab PO BID LAST DOSE GIVEN: DATE: TODAY TIME: AM NEXT DOSE DUE: DATE: TODAY TIME: PM Glyburide 2.5 Mg Tablet 1 Tab PO DAILY LAST DOSE GIVEN: DATE: TIME: AM NEXT DOSE DUE: DATE: TOMORR TIME: AM Eliquis (Apixaban) 5 Mg Tablet 5 Mg PO BID LAST DOSE GIVEN: DATE: TODAY TIME: AM NEXT DOSE DUE: DATE: TODAY TIME: PM Vitals/I & O Vital Sign - Last 24 Hours 06/08/18 06/08/18 06/08/18 06/08/18 10:52 11:42 11:42 11:43 Temp 97.5 Pulse 64 57 63 67 Resp 20 B/P (MAP) 122/73 (89) 119/77 (91) 125/63 (83) 116/72 (87) Pulse Ox 92 O2 Delivery Room Air 06/08/18 06/08/18 06/08/18 06/08/18 13:05 14:56 19:31 20:00 Temp 97.1 97.4 Pulse 67 63 68 Resp 18 24 B/P (MAP) 116/72 131/75 (93) 129/74 (92) Pulse Ox 96 92 O2 Delivery Room Air Room Air Room Air 06/08/18 06/08/18 06/08/18 06/08/18 21:30 21:51 22:32 23:46 Temp 97.8 Pulse 68 73 Resp 20 20 20 B/P (MAP) 129/74 144/67 (92) Pulse Ox 92 95 95 O2 Delivery Room Air Room Air Room Air O2 Flow Rate 2.0 06/09/18 06/09/18 06/09/18 06/09/18 05:49 08:19 08:35 08:36 Temp 97.6 97.6 Pulse 70 71 71 71 Resp 20 18 B/P (MAP) 96/61 (73) 148/86 (106) 148/86 148/86 Pulse Ox 92 93 O2 Delivery Room Air Room Air 06/09/18 09:19 O2 Delivery Room Air Intake and Output 06/08/18 06/08/18 06/09/18 14:59 22:59 06:59 Intake Total 480 ml 240 ml 240 ml Balance 480 ml 240 ml 240 ml DOV JAUREGUI CAPTAIN WAITER Jun 09, 2018 09:50
[2018-06-09 10:01] LABS: CALCIUM 8.7 mg/dL (8.5-10.1); CREATININE 1.5 mg/dL (0.6-1.0); GFR 33.2; POTASSIUM 4.2 mmol/L (3.5-5.1)
[2018-06-09 11:01] VITALS: BP 129/74
[2018-06-09 11:29] VITALS: BP 129/74
[2018-06-09] MEDS: amLODIPine BESYLATE 2.5 MG TABLET PO SCH (11:29)
--- NOTE | 2018-06-09 14:19 | NUR ---
PT DISCHARGED AT 1230 TODAY TO HOME VIA PRIVATE VEHICLE. IV AND TELE DISCONTINUED. PT WANTED A SCRIPT FOR TYLENOL#[address] LEWIS WAS NOT AVAILABLE. INSTRUCTED BY SALES OPERATIONS CONSULTANT LAURA THAT PT HAS TO FOLLOW UP WITH DR. LEWIS AT HIS OFFICE TO RECEIVE A SCRIPT FOR NARCOTICS [facility] CAN NO LONGER BE CALLED IN.
--- NOTE | 2018-06-29 14:06 | DS ---
DATE OF DISCHARGE: 06/09/2018 HOSPITAL COURSE: The patient came in through the ER with atrial fibrillation with RVR. The patient was brought in and placed on Cardizem drip. The patient also notes she has a long history of chronic stasis ulcers. The patient made excellent progress during the rest of her hospitalization. Hemoglobin was still anemic. Creatinine clearance still low at 33, albumin low at 2.7. 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 She was seen by Cardiology. The patient was discharged home. IMPRESSION: Atrial fibrillation with rapid ventricular response, stasis dermatitis, hyperglycemia, chronic kidney disease stage 3, anemia of chronic disease, moderate to severe protein malnutrition. PLAN: The patient will be on a heart healthy diet, decreased activity, see MRAD. DINORAH LEWIS MD DR: JOSE/rosie JOB#: [id number] / [id number]
== END 2018-06-09 12:30 | disposition home or self-care (01) | DRG 308 ==
LOC: ER 16:15 → 1 SOUTH 18:45
PROVIDERS: ADMIT Family Medicine; ATTEND Family Medicine
DX: I48.91 Unspecified atrial fibrillation (principal); N17.0 Acute kidney failure with tubular necrosis; L97.919 Non-pressure chronic ulcer of unspecified part of right lower leg with unspecified severity; I50.32 Chronic diastolic (congestive) heart failure; I27.20 Pulmonary hypertension, unspecified; Z90.710 Acquired absence of both cervix and uterus; Z98.891 History of uterine scar from previous surgery; Z90.49 Acquired absence of other specified parts of digestive tract; Z86.73 Personal history of transient ischemic attack (TIA), and cerebral infarction without residual deficits; Z88.5 Allergy status to narcotic agent; E78.00 Pure hypercholesterolemia, unspecified; Z79.01 Long term (current) use of anticoagulants; M19.90 Unspecified osteoarthritis, unspecified site; Z96.659 Presence of unspecified artificial knee joint; G89.29 Other chronic pain; Z80.9 Family history of malignant neoplasm, unspecified; I87.8 Other specified disorders of veins; K21.9 Gastro-esophageal reflux disease without esophagitis; I11.0 Hypertensive heart disease with heart failure; I25.10 Atherosclerotic heart disease of native coronary artery without angina pectoris; E78.5 Hyperlipidemia, unspecified; E11.51 Type 2 diabetes mellitus with diabetic peripheral angiopathy without gangrene; E03.9 Hypothyroidism, unspecified; E11.622 Type 2 diabetes mellitus with other skin ulcer; N18.3 Chronic kidney disease, stage 3 (moderate)
CPT/HCPCS: 36415; 71045; 71046; 80048; 80053; 80061; 81001; 82947; 83605; 84443; 84484; 85025; 85027; 87040; 93005; 93306; 96361; 96374; J3490; 99285-25; J7030

== ENCOUNTER 2018-07-13 20:43 | Inpatient (IN) | payer MEDICARE, BC ==
[~2018-07-13] VITALS: Ht 167.6 cm; Wt 95.3 kg
[~2018-07-13 20:43] MED LIST changes: +CELE100C59 PO; +MELA3TAB2 PO
--- NOTE | 2018-07-13 20:48 | ED.ADGEN ---
Past History Past Medical History: Arthritis, CAD, CHF, Diabetes, Hypertension, TIA, Other Past Surgical History: Cholecystectomy, , Hysterectomy, Other Smoking: Non-smoker Alcohol Use: Occasionally Drug Use: None Adult General Chief Complaint Chief Complaint ".. I am having so much more back pain... I took an extra pain tablet.. . my legs are so swollen.. the diabetic leg ulcers are... draining a lot more. .. I am more short of breath...".. " I could not hardly get ... around to go to congregation... ".." I also got this rash in my groin and under my breast..." HPI HPI Patient is a 82 year old female who presents with above hx and complaints increased lumbar back pain and lower leg ulcer pain. Patient has history of chronic back pain. Has had previous placement of a neurostimulator which was removed since it did not aid in reduction of pain. Patient has history of diabetes and peripheral vascular disease. Patient has bilateral leg ulcers. Larger leg ulcer on the right. Patient sciatic complaints are also worse in the past 24 hours. There is radiation down her right leg. Patient denies any changes in meds. Normally follows Dr. Culp. Patient has history of multiple medical issues CHF, coronary artery disease, diabetes, peripheral neurovascular disease, diabetic leg ulcers, arthritis, deconditioning, hypertension, and chronic back pain. Review of Systems Review of Systems Constitutional: Denies fever or chills [] Eyes: Denies change in visual acuity, redness, or eye pain [] HENT: Denies nasal congestion or sore throat [] Respiratory: Complaints of shortness of breath [] Cardiovascular: No additional information not addressed in HPI [] GI: Denies abdominal pain, nausea, vomiting, bloody stools or diarrhea [] : Denies dysuria or hematuria [] Musculoskeletal: Complains of lumbar back pain and joint pain [] Integument: Complaints of diabetic leg ulcers, rash in groin and under breast. Neurologic: Denies headache, focal weakness or sensory changes [] Endocrine: Denies polyuria or polydipsia [] All other systems were reviewed and found to be within normal limits, except as documented in this note. Family History Family History Noncontributory Current Medications Current Medications Current Medications Medications (Trade) Dose Ordered Sig/Ally Start Time Stop Time Status Last Admin Dose Admin Aspirin (Children'S Aspirin) 324 mg 1X ONCE 07/13/18 21:30 07/13/18 21:31 DC 07/13/18 21:57 324 MG Fentanyl Citrate (Fentanyl 2ml Vial) 50 mcg QIDPRN PRN 07/13/18 22:45 07/13/18 23:27 50 MCG Furosemide (Lasix) 20 mg 1X ONCE 07/13/18 21:30 07/13/18 21:31 DC 07/13/18 21:56 20 MG Lidocaine HCl (Xylocaine 2% Topical 5gm Tube) 5 ashtyn STK-MED ONCE 07/13/18 21:45 07/13/18 21:46 DC Ondansetron HCl (Zofran) 4 mg PRN Q4HRS PRN 07/13/18 22:45 07/14/18 22:44 See nursing for home meds Allergies Allergies Allergies Coded Allergies Type Severity Reaction Last Updated Verified morphine Allergy Intermediate RASH 11/08/17 Yes Physical Exam Physical Exam Constitutional: Moderately acute distress, non-toxic appearance. [] HENT: Normocephalic, atraumatic, bilateral external ears normal, oropharynx moist, no oral exudates, nose normal. [] Eyes: PERRLA, EOMI, conjunctiva normal, no discharge. [] Neck: Normal range of motion, no tenderness, supple, no stridor. JVD in sitting position Cardiovascular:Heart rate ill regular rhythm, no murmur , PMI to the left. Lungs & Thorax: Bilateral breath sounds equal apex with bilateral basilar crackles on auscultation [] Abdomen: Bowel sounds normal, soft, no tenderness, no masses, no pulsatile masses. [Obese. Old surgery scar. Incontinence of urine. Skin: Large diabetic ankle ulcer on right 8 x 16 cm small diabetic ulcer on left follows 1 cm. Panus and groin- extensive skin breakdown . Rash under breast. Back: lumbar muscle tenderness, no CVA tenderness. [Old surgery scar] Extremities: Bilateral leg tenderness, no cyanosis, no clubbing, ROM limited because of arthritic complaints, bilateral leg edema to above the knees.Decreased pulses in feet. Neurologic: Alert and oriented X 3, moves all extremities on request,, decrease plantar sensory function, no gross focal deficits noted from her baseline. Psychologic: Affect anxious, judgement normal, mood normal. [] Current Patient Data Vital Signs Vital Signs Date Time Temp Pulse Resp B/P (MAP) Pulse Ox O2 Delivery O2 Flow Rate FiO2 07/13/18 23:27 16 07/13/18 22:27 66 151/83 (105) 93 Room Air 07/13/18 21:07 98.3 Lab Results Laboratory Tests Test 07/13/18 21:51 07/13/18 22:00 White Blood Count 5.5 x10^3/uL (4.0-11.0) Red Blood Count 3.69 x10^6/uL (3.50-5.40) Hemoglobin 10.1 g/dL (12.0-15.5) L Hematocrit 32.2 % (36.0-47.0) L Mean Corpuscular Volume 87 fL (79-100) Mean Corpuscular Hemoglobin 27 pg (25-35) Mean Corpuscular Hemoglobin Concent 31 g/dL (31-37) Red Cell Distribution Width 21.2 % (11.5-14.5) H Platelet Count 125 x10^3/uL (140-400) L Neutrophils (%) (Auto) 78 % (31-73) H Lymphocytes (%) (Auto) 13 % (24-48) L Monocytes (%) (Auto) 8 % (0-9) Eosinophils (%) (Auto) 0 % (0-3) Basophils (%) (Auto) 0 % (0-3) Neutrophils # (Auto) 4.3 x10^3uL (1.8-7.7) Lymphocytes # (Auto) 0.7 x10^3/uL (1.0-4.8) L Monocytes # (Auto) 0.5 x10^3/uL (0.0-1.1) Eosinophils # (Auto) 0.0 x10^3/uL (0.0-0.7) Basophils # (Auto) 0.0 x10^3/uL (0.0-0.2) Platelet Estimate Adequate (ADEQUATE) Large Platelets Occ Polychromasia Slight Hypochromasia Mod Anisocytosis Mod Microcytosis Slight Ovalocytes Few Erythrocyte Sedimentation Rate 30 (0-25) H Urine Collection Type Unknown Urine Color Yellow Urine Clarity Clear Urine pH 7.0 Urine Specific [place] 1.015 Urine Protein Trace (NEG-TRACE) Urine Glucose (UA) Neg mg/dL (NEG) Urine Ketones (Stick) Neg mg/dL (NEG) Urine Blood Neg (NEG) Urine Nitrite Neg (NEG) Urine Bilirubin Neg (NEG) Urine Urobilinogen Dipstick 1 mg/dL (0.2 mg/dL) Urine Leukocyte Esterase Neg (NEG) Urine RBC 1-2 /HPF (0-2) Urine WBC Occ /HPF (0-4) Urine Squamous Epithelial Cells Occ /LPF Urine Bacteria 0 /HPF (0-FEW) Urine Hyaline Casts Few /HPF Sodium Level 145 mmol/L (136-145) Potassium Level 4.3 mmol/L (3.5-5.1) Chloride Level 109 mmol/L (98-107) H Carbon Dioxide Level 28 mmol/L (21-32) Anion Gap 8 (6-14) Blood Urea Nitrogen 32 mg/dL (7-20) H Creatinine 1.4 mg/dL (0.6-1.0) H Estimated GFR (Cockcroft-Gault) 35.9 Glucose Level 98 mg/dL (70-99) Calcium Level 9.0 mg/dL (8.5-10.1) Magnesium Level 2.0 mg/dL (1.8-2.4) Total Bilirubin 0.5 mg/dL (0.2-1.0) Direct Bilirubin 0.1 mg/dL (0.0-0.2) Aspartate Amino Transferase (AST) 21 U/L (15-37) Alanine Aminotransferase (ALT) 19 U/L (14-59) Alkaline Phosphatase 118 U/L (46-116) H Creatine Kinase 50 U/L (26-192) Troponin I Quantitative < 0.017 ng/mL (0-0.055) BL-Bam-Z-Type Natriuretic Peptide 5800 pg/mL (0-449) H Total Protein 7.9 g/dL (6.4-8.2) Albumin 3.2 g/dL (3.4-5.0) L Prothrombin Time 11.9 SEC (9.4-11.4) H Prothrombin Time INR 1.2 (0.9-1.1) H PTT 29 SEC (23-33) D-Dimer (Flory) 0.59 mg/L (0.00-0.50) H EKG EKG My interpretation EKG shows an irregular rhythm consistent with A. fib. Ventricular rate is 63. Bundle-branch block. Right axis deviation.[] Radiology/Procedures Radiology/Procedures My interpretation of chest x-ray shows cardiomegaly with increased cephalization consistent with CHF. No specific areas of consolidation. Basilar scarring/atelectasis. My interpretation CT lumbar spine shows obvious fracture dislocation. Findings of severe degenerative joint changes and spondylosis. Central canal narrowing. See formal reports when available. Course & Med Decision Making Course & Med Decision Making Pertinent Labs and Imaging studies reviewed. (See chart for details) Admit to Dr. Culp for further tx. and evaluation. Cardiology consult for CHF and Afib. [] Final Impression Final Impression 1. CHF 2. Diabetic leg ulcers 3. Acute on Chronic Lumbar Back Pain[] 4. Panus and Groin- Skin breakdown and Ulceration, 5. DM 6. Afib 7. PVDz. 8. Anemia 10.1 Hgb 9. Elevated Creat. / Bun 32/1.4 10.Elevated D-dimer 0.59 Dragon Disclaimer Dragon Disclaimer This electronic medical record was generated, in whole or in part, using a voice recognition dictation system. Discharge Summary Visit Information Final Diagnosis Problems Medical Problems: (1) CHF (congestive heart failure) Status: Acute Brief Hospital Course Allergies Allergies Coded Allergies Type Severity Reaction Last Updated Verified morphine Allergy Intermediate RASH 11/08/17 Yes Vital Signs Vital Signs Date Time Temp Pulse Resp B/P (MAP) Pulse Ox O2 Delivery O2 Flow Rate FiO2 07/13/18 23:27 16 07/13/18 22:27 66 151/83 (105) 93 Room Air 07/13/18 21:07 98.3 Lab Results Laboratory Tests Test 07/13/18 21:51 07/13/18 22:00 White Blood Count 5.5 x10^3/uL (4.0-11.0) Red Blood Count 3.69 x10^6/uL (3.50-5.40) Hemoglobin 10.1 g/dL (12.0-15.5) Hematocrit 32.2 % (36.0-47.0) Mean Corpuscular Volume 87 fL (79-100) Mean Corpuscular Hemoglobin 27 pg (25-35) Mean Corpuscular Hemoglobin Concent 31 g/dL (31-37) Red Cell Distribution Width 21.2 % (11.5-14.5) Platelet Count 125 x10^3/uL (140-400) Neutrophils (%) (Auto) 78 % (31-73) Lymphocytes (%) (Auto) 13 % (24-48) Monocytes (%) (Auto) 8 % (0-9) Eosinophils (%) (Auto) 0 % (0-3) Basophils (%) (Auto) 0 % (0-3) Neutrophils # (Auto) 4.3 x10^3uL (1.8-7.7) Lymphocytes # (Auto) 0.7 x10^3/uL (1.0-4.8) Monocytes # (Auto) 0.5 x10^3/uL (0.0-1.1) Eosinophils # (Auto) 0.0 x10^3/uL (0.0-0.7) Basophils # (Auto) 0.0 x10^3/uL (0.0-0.2) Platelet Estimate Adequate (ADEQUATE) Large Platelets Occ Polychromasia Slight Hypochromasia Mod Anisocytosis Mod Microcytosis Slight Ovalocytes Few Erythrocyte Sedimentation Rate 30 (0-25) Urine Collection Type Unknown Urine Color Yellow Urine Clarity Clear Urine pH 7.0 Urine Specific [place] 1.015 Urine Protein Trace (NEG-TRACE) Urine Glucose (UA) Neg mg/dL (NEG) Urine Ketones (Stick) Neg mg/dL (NEG) Urine Blood Neg (NEG) Urine Nitrite Neg (NEG) Urine Bilirubin Neg (NEG) Urine Urobilinogen Dipstick 1 mg/dL (0.2 mg/dL) Urine Leukocyte Esterase Neg (NEG) Urine RBC 1-2 /HPF (0-2) Urine WBC Occ /HPF (0-4) Urine Squamous Epithelial Cells Occ /LPF Urine Bacteria 0 /HPF (0-FEW) Urine Hyaline Casts Few /HPF Sodium Level 145 mmol/L (136-145) Potassium Level 4.3 mmol/L (3.5-5.1) Chloride Level 109 mmol/L (98-107) Carbon Dioxide Level 28 mmol/L (21-32) Anion Gap 8 (6-14) Blood Urea Nitrogen 32 mg/dL (7-20) Creatinine 1.4 mg/dL (0.6-1.0) Estimated GFR (Cockcroft-Gault) 35.9 Glucose Level 98 mg/dL (70-99) Calcium Level 9.0 mg/dL (8.5-10.1) Magnesium Level 2.0 mg/dL (1.8-2.4) Total Bilirubin 0.5 mg/dL (0.2-1.0) Direct Bilirubin 0.1 mg/dL (0.0-0.2) Aspartate Amino Transf (AST/SGOT) 21 U/L (15-37) Alanine Aminotransferase (ALT/SGPT) 19 U/L (14-59) Alkaline Phosphatase 118 U/L (46-116) Creatine Kinase 50 U/L (26-192) Troponin I Quantitative < 0.017 ng/mL (0-0.055) SI-Sgz-D-Type Natriuretic Peptide 5800 pg/mL (0-449) Total Protein 7.9 g/dL (6.4-8.2) Albumin 3.2 g/dL (3.4-5.0) Prothrombin Time 11.9 SEC (9.4-11.4) Prothromb Time International Ratio 1.2 (0.9-1.1) Activated Partial Thromboplast Time 29 SEC (23-33) D-Dimer (Flory) 0.59 mg/L (0.00-0.50) Brief Hospital Course Ms. Sherman is a 82 old female who presented with CHF. Admitted Dr. Culp. Discharge Information Condition at Discharge: Improved Dischare Medications Current Medications Aspirin (Children'S Aspirin) 324 mg 1X ONCE PO Last administered on 07/13/18at 21:57; Admin Dose 324 MG; Start 07/13/18 at 21:30; Stop 07/13/18 at 21:31; Status DC Furosemide (Lasix) 20 mg 1X ONCE IVP Last administered on 07/13/18at 21:56; Admin Dose 20 MG; Start 07/13/18 at 21:30; Stop 07/13/18 at 21:31; Status DC Fentanyl Citrate (Fentanyl 2ml Vial) 25 mcg PRN Q1HR PRN IV pain Last administered on 07/13/18at 21:56; Admin Dose 25 MCG; Start 07/13/18 at 21:00 Lidocaine HCl (Xylocaine 2% Topical 5gm Tube) 5 ashtyn STK-MED ONCE TP ; Start 07/13/18 at 21:45; Stop 07/13/18 at 21:46; Status DC Ondansetron HCl (Zofran) 4 mg PRN Q4HRS PRN IV NAUSEA/VOMITING; Start 07/13/18 at 22:45; Stop 07/14/18 at 22:44 Fentanyl Citrate (Fentanyl 2ml Vial) 50 mcg QIDPRN PRN IV marked pain Last administered on 07/13/18at 23:27; Admin Dose 50 MCG; Start 07/13/18 at 22:45 Active Scripts Active Hydralazine Hcl 25 Mg Tablet 50 Mg PO TID 30 Days Hydrocodone-Apap 7.5-325 (Hydrocodone Bit/Acetaminophen) 1 Each Tablet 2 Tab PO PRN Q6HRS PRN Metoprolol Succinate ( Xl ) (Metoprolol Succinate) 50 Mg Tab.er.24h 50 Mg PO BID 30 Days Carvedilol 6.25 Mg Tablet 6.25 Mg PO BID 30 Days Nystatin 15 Gm Powder 1 Asthyn TP BID Reported Celecoxib 100 Mg Capsule 100 Mg PO DAILY LAST DOSE GIVEN: DATE: TIME: NEXT DOSE DUE: DATE: TIME: Melatonin 3 Mg Tablet 3 Mg PO QHS Arthritis Pain (Acetaminophen) 650 Mg Tablet.er 650 Mg PO Q6HRS PRN NOT GIVEN THIS ADMISSION NEXT DOSE DUE: DATE: TODAY TIME: IF/WHEN NEEDED Potassium Chloride 10 Meq Tablet.er 1 Tab PO DAILY LAST DOSE GIVEN: DATE: TODAY TIME: AM NEXT DOSE DUE: DATE: TOMORROW TIME: AM Furosemide 40 Mg Tablet 1 Tab PO DAILY LAST DOSE GIVEN: DATE: TODAY TIME: AM NEXT DOSE DUE: DATE: TOMORROW TIME: AM Felodipine Er (Felodipine) 2.5 Mg Tab.er.24h 1 Tab PO DAILY LAST DOSE GIVEN: DATE: TODAY TIME: AM NEXT DOSE DUE: DATE: TOMORROW TIME: AM Hydrocodone-Apap 7.5-325 (Hydrocodone Bit/Acetaminophen) 1 Each Tablet 1 Tab PO Q6HRS PRN LAST DOSE GIVEN: DATE: TIME: NEXT DOSE DUE: DATE: TIME: Lidoderm (Lidocaine) 700 Mg Adh..patch 1 Patch TP DAILY LAST DOSE GIVEN: DATE: TODAY TIME: AM NEXT DOSE DUE: DATE: TOMORROW TIME: AM Pravastatin Sodium 20 Mg Tablet 20 Mg PO QHS LAST DOSE GIVEN: DATE: YESTERDAY TIME: BEDTIME NEXT DOSE DUE: DATE: TODAY TIME: BEDTIME Pantoprazole Sodium 40 Mg Tablet.dr 1 Tab PO BID LAST DOSE GIVEN: DATE: TODAY TIME: AM NEXT DOSE DUE: DATE: TODAY TIME: PM Glyburide 2.5 Mg Tablet 1 Tab PO DAILY LAST DOSE GIVEN: DATE: TODAY TIME: AM NEXT DOSE DUE: DATE: TOMORROW TIME: AM Eliquis (Apixaban) 5 Mg Tablet 5 Mg PO BID LAST DOSE GIVEN: DATE: TIME: AM NEXT DOSE DUE: DATE: TIME: PM Phi Disclaimer This chart was dictated in whole or in part using Voice Recognition software in a busy, high-work load, and often noisy Emergency Department environment. It may contain unintended and wholly unrecognized errors or omissions. RONALD GIBSON MD July 13, 2018 20:48
--- NOTE | 2018-07-13 21:12 | EKG ---
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
[2018-07-13] MEDS ORDERED: FUROSEMIDE 40 MG/4 ML VIAL IVP ONE (21:30)
[2018-07-13] MEDS ORDERED: ASPIRIN 81 MG TAB.CHEW PO ONE (21:30)
[2018-07-13] MEDS ORDERED: LIDOCAINE 2% TOPICAL JELLY 5GM TUBE. TP ONE (21:45)
--- NOTE | 2018-07-13 21:55 | RAD ---
PORTABLE CHEST 1V History: Dyspnea.. Comparison with June 06, 2018. The heart size is enlarged similar to prior study. No evidence of pneumothorax. No pleural effusion. No consolidating infiltrate. Aorta is tortuous. Mild increased markings are seen in both lungs, similar and therefore likely chronic. IMPRESSION: No consolidating infiltrate. Electronically signed by: Maverick Ly MD (07/13/2018 9:52 PM) [facility]
--- NOTE | 2018-07-13 21:57 | RAD ---
CT LUMBAR SPINE WO CONTRAST Indication: Lumbar back pain. Exposure: One or more of the following individualized dose reduction techniques were utilized for this examination: 1. Automated exposure control 2. Adjustment of the mA and/or kV according to patient size 3. Use of iterative reconstruction technique. Technique: Standard imaging without intravenous contrast. Vertebral body height is maintained. No significant subluxation. There is severe degenerative spondylosis at multiple levels. There is [id number] central spinal canal narrowing. No significant subluxation. The aorta is calcified without evidence of aneurysm. Low-density lesion of the right kidney measures 12 Hounsfield units, most compatible with a cyst. Fibrotic changes in the lower lungs with bronchial wall thickening. IMPRESSION: Severe lumbar spondylosis. Electronically signed by: Maverick Ly MD (07/13/2018 9:55 PM) [facility]
[2018-07-13 22:09] LABS: BACTERIA,URINE 0 /HPF (0-FEW); BASO % 0 % (0-3); BILIRUBIN,URINE NEG (NEG); CLARITY,URINE CLEAR; COLOR,URINE YELLOW; EOS % 0 % (0-3); GLUCOSE,URINE NEG (NEG); HEMATOCRIT 32.2 % (36.0-47.0); HEMOGLOBIN 10.1 g/dL (12.0-15.5); HYALINE CASTS, URINE FEW /HPF; LYMPH # 0.7 x10^3/uL (1.0-4.8); LYMPH % 13 % (24-48); MEAN CORPUSCULAR HEMOGLOBIN 27 pg (25-35); MEAN CORPUSCULAR HGB CONC 31 g/dL (31-37); MEAN CORPUSCULAR VOLUME 87 fL (79-100); MONO # 0.5 x10^3/uL (0.0-1.1); MONO % 8 % (0-9); NEUT # 4.3 x10^3uL (1.8-7.7); NEUT % 78 % (31-73); NITRITE,URINE NEG (NEG); PLATELET COUNT 125 x10^3/uL (140-400); RED BLOOD COUNT 3.69 x10^6/uL (3.50-5.40); RED CELL DISTRIBUTION WIDTH 21.2 % (11.5-14.5); SQUAMOUS EPITHELIAL CELL,UR OCC /LPF; UROBILINOGEN,URINE 1 mg/dL (0.2 mg/dL); WBC,URINE OCC /HPF (0-4); WHITE BLOOD COUNT 5.5 x10^3/uL (4.0-11.0)
[2018-07-13 22:29] LABS: ANISOCYTOSIS MOD
[2018-07-13 22:30] LABS: ALBUMIN 3.2 g/dL (3.4-5.0); CREATININE 1.4 mg/dL (0.6-1.0); DIRECT BILIRUBIN 0.1 mg/dL (0.0-0.2); GFR 35.9; MICROCYTOSIS SLIGHT; POTASSIUM 4.3 mmol/L (3.5-5.1); TOTAL BILIRUBIN 0.5 mg/dL (0.2-1.0); TOTAL PROTEIN 7.9 g/dL (6.4-8.2)
[2018-07-13 22:31] LABS: OVALOCYTES FEW
[2018-07-13 22:33] LABS: HYPOCHROMIA MOD; POLYCHROMASIA SLIGHT
[2018-07-13 22:36] LABS: PLT ESTIMATE ADEQUATE (ADEQUATE)
[2018-07-13] MEDS ORDERED: ONDANSETRON PF 4 MG/2 ML VIAL. IV PRN (22:45)
[2018-07-13 23:18] LABS: SEDIMENTATION RATE 30 (0-25)
[2018-07-13] MEDS ORDERED: ANTI-COAG MONITOR BY PHARMACY. MC PRN (23:30)
[2018-07-14] MEDS ORDERED: fentaNYL 12MCG/HR 1 PATCH PATCH TD SCH
[2018-07-14] MEDS: APIXABAN 2.5 MG TABLET PO SCH ×2 (00:06→08:37)
[2018-07-14 00:14] VITALS: BP 146/87
[2018-07-14 05:36] VITALS: BP 127/71
[2018-07-14 06:32] LABS: BASO % 1 % (0-3); EOS % 1 % (0-3); HEMATOCRIT 30.6 % (36.0-47.0); HEMOGLOBIN 9.7 g/dL (12.0-15.5); LYMPH # 0.9 x10^3/uL (1.0-4.8); LYMPH % 21 % (24-48); MEAN CORPUSCULAR HEMOGLOBIN 27 pg (25-35); MEAN CORPUSCULAR HGB CONC 32 g/dL (31-37); MEAN CORPUSCULAR VOLUME 87 fL (79-100); MONO # 0.4 x10^3/uL (0.0-1.1); MONO % 10 % (0-9); NEUT # 2.7 x10^3uL (1.8-7.7); NEUT % 68 % (31-73); PLATELET COUNT 116 x10^3/uL (140-400); RED BLOOD COUNT 3.54 x10^6/uL (3.50-5.40); RED CELL DISTRIBUTION WIDTH 20.4 % (11.5-14.5); WHITE BLOOD COUNT 4.1 x10^3/uL (4.0-11.0)
[2018-07-14 06:39] LABS: CALCIUM 8.9 mg/dL (8.5-10.1); CREATININE 1.3 mg/dL (0.6-1.0); GFR 39.1; POTASSIUM 3.9 mmol/L (3.5-5.1)
[2018-07-14] MEDS: FUROSEMIDE 40 MG/4 ML VIAL IVP SCH (06:41)
[2018-07-14] MEDS: IPRATRPIUM/ALBUTEROL 0.5/2.5MG 3 ML NEBU. NEB SCH ×4 (08:00→20:00)
[2018-07-14] MEDS: FLUCONAZOLE 100 MG TABLET. PO SCH (08:37)
[2018-07-14] MEDS: NYSTATIN TOPICAL POWDER 15GM BOTTLE. TP SCH ×2 (08:50→21:17)
[2018-07-14] MEDS ORDERED: ACET-704 PO (08:58)
[2018-07-14] MEDS ORDERED: FUROSEMIDE 20 MG/2 ML VIAL IVP SCH (09:30)
[2018-07-14] MEDS: LIDOCAINE (700MG/PATCH) PATCH. TD SCH (09:30)
[2018-07-14] MEDS: PANTOPRAZOLE 40 MG TABLET. PO SCH ×2 (09:30→16:44)
[2018-07-14] MEDS: amLODIPine BESYLATE 2.5 MG TABLET PO SCH (09:30)
[2018-07-14] MEDS: METOPROLOL SUCC 24HR ER 50 MG TAB.ER.24H. PO SCH ×2 (09:30→21:00)
--- NOTE | 2018-07-14 10:31 | HP ---
ADMIT DATE: 07/13/2018 HISTORY OF PRESENT ILLNESS: An 82-year-old female in with a congestive heart failure. She was having increased shortness of breath, came in through the Emergency Room where she was noted to have severe lower back pain. The patient has had placement of a nerve stimulator in the past, but has been removed since then. However, the patient had a markedly elevated BNP and marked orthopnea and dyspnea and was admitted for recurrence of her CHF. PAST MEDICAL HISTORY: Coronary artery disease, previous history of CHF, peripheral neurovascular disease, diabetic leg ulcers, arthritis, deconditioning, morbid obesity, hypertension, chronic back pain, diabetes, history of TIA, cholecystectomy, , hysterectomy, and vascular insufficiency. ALLERGIES: The patient has an adverse reaction to MORPHINE. MEDICATIONS: Eliquis 5, pravastatin 20, hydralazine 50 t.i.d., carvedilol 6.25, metoprolol 50 mg b.i.d., felodipine 2.5 mg daily, Tylenol, potassium 10 mEq, furosemide 40 mg daily, Protonix 40, glyburide 2.5 daily, nystatin powder, Lidoderm. FAMILY HISTORY: Noncontributory. SOCIAL HISTORY: The patient denies smoking, alcohol, or drug use. She is a full admit and also is a full code. REVIEW OF SYSTEMS: The patient denies any headaches, visual change, blurred vision, double vision. Denies chest pain. Does have shortness of breath. Does have orthopnea, dyspnea, leg swelling. Neurologically stable. Denies any problem with bowels or bladder. No nausea or vomiting. PHYSICAL EXAMINATION: GENERAL: Pleasant white female. VITAL SIGNS: Blood pressure 127/70, respiratory rate 20, pulse 60, afebrile. HEENT: The patient's head was atraumatic, normocephalic. Eyes: PERRLA without jaundice. Mouth and throat were normal. NECK: Supple. No JVD or thyromegaly. LUNGS: Diminished. Some rales noted in the bases. CARDIOVASCULAR: Regular sinus rhythm, S1, S2. ABDOMEN: Soft, nontender, protuberant. EXTREMITIES: No clubbing or cyanosis. Trace edema, but marked venous stasis ulcers were noted and hyperpigmentation. NEUROLOGIC: The patient is alert and oriented x 3. LABORATORY DATA: Hemoglobin 9.7 and hematocrit 30. Sed rate elevated to 30. The patient's BNP of 5800. Sodium, potassium, BUN, and creatinine ____ GFR of 39. ASSESSMENT AND PLAN: The patient otherwise will be monitored carefully, make further evaluation. Have an elevated D-dimer, but is on Eliquis 5 mg b.i.d.: The patient continued to be monitored carefully, make further evaluation on her as indicated. DINORAH LEWIS MD DR: JOSE/rosie JOB#: [id number] / [id number]
[2018-07-14] MEDS: APIXABAN 5 MG TABLET. PO SCH ×2 (10:33→21:08)
[2018-07-14] MEDS: glyBURIDE 5 MG TABLET PO SCH (10:34)
[2018-07-14] MEDS: POTASSIUM CHLORIDE 10 MEQ TABLET.ER. PO SCH (10:34)
[2018-07-14] MEDS: CARVEDILOL 6.25 MG TABLET PO SCH ×2 (10:35→16:45)
[2018-07-14 11:06] VITALS: BP 124/76
[2018-07-14] MEDS ORDERED: CYAN10005 PO (11:13)
[2018-07-14] MEDS ORDERED: CELE100C PO (11:13)
[2018-07-14] MEDS: ACETAMINOPHEN/CODEINE 300/30MG TABLET PO SCH ×3 (12:00→17:40)
[2018-07-14 15:21] VITALS: BP 140/82
[2018-07-14] MEDS: ACETAMINOPHEN 325 MG TABLET PO PRN ×2 (17:36→17:41)
[2018-07-14 20:06] VITALS: BP 135/83
[2018-07-14] MEDS ORDERED: NYSTATIN TOPICAL POWDER 15GM BOTTLE. TP SCH (21:00)
[2018-07-14] MEDS: ATORVASTATIN CALCIUM 10 MG TABLET. PO SCH (21:09)
[2018-07-14 22:53] VITALS: BP 114/67
--- NOTE | 2018-07-14 23:25 | PDOC ---
PROVIDER NOTE PROVIDER NOTE PROVIDER NOTE CARDIOLOGY CONSULT NOTE REASON FOR CONSULT: CHEST PAIN HPI: 82 y.o woman well known to our service presents with various compliants, mostly non-cardiac. She has diffuse body pains and LE edema, which are chronic. No angina. No syncope or palpitations. She has struggled with chronic venous insuff and afib for some time. Pmhx: 1. Permanent afib on anticoagulation 2. LE venous ulcers. 3. HTN 4. COPD 5. Dyslipidemia 6. Chronic diastolic HF 7. Pulmonary HTN with RVSP of 55 mm hg. Sochx: no alcohol, tob or illicits. ALL: Morphine. Current CV meds: Toprol XL Coreg amlodipine lasix. atorvastatin. ROS: Negative for 12/15 systems reviewed unless noted above in HPI. Physical Exam Constitutional: Well developed, well nourished, no acute distress, non-toxic appearance, positive interaction HENT: Normocephalic, atraumatic, bilateral external ears normal, oropharynx moist, no oral exudates, nose normal. Eyes: PERLL, EOMI, conjunctiva normal, no discharge. Neck: Normal range of motion, no tenderness, supple, no stridor. Cardiovascular: Normal heart rate, irr rhythm, no murmurs, no rubs, no gallops. Thorax and Lungs: Normal breath sounds, no respiratory distress, no wheezing, no chest tenderness, no retractions, no accessory muscle use. Abdomen: Bowel sounds normal, soft, no tenderness, no masses, no pulsatile masses. Skin: Warm, dry, no erythema, no rash. Back: No tenderness, no CVA tenderness. Extremeties: Diminished pedal pulses. 2+ edema. Neurologic: Alert and oriented X 3, normal motor function, normal sensory function, no focal deficits noted. Psychologic: Affect normal, judgement normal, mood normal. DIAGNOSTIC TESTING: Echo last month with normal LV function. EF 55%. Moderate pulm HTN Labs grossly unremarkable except for chronic anemia. EKG with afib. rate controlled. Impression: 1. Acute on chronic diastolic HF 2. Moderate secondary pulmonary HTN 3. HTN 4. Venous insufficiency with venous stasis ulcers. 5. Debility 6. Morbid obesity Plan. 1. Likely stop Toprol XL, as she is already on coreg. 2. Continue lasix daily. 3. Will plan for outpt venous ulcer eval with reflux studies and consider GSV ablation prn. 4. Multiple recurrent HF admissions, unclear social triggers at home, will need close monitoring and education. Supportive care. Thanks for asking us to see this patient. Will follow along. RUBIN GRACE MD July 14, 2018 23:25
[2018-07-15 05:09] VITALS: BP 154/53
[2018-07-15] MEDS: IPRATRPIUM/ALBUTEROL 0.5/2.5MG 3 ML NEBU. NEB SCH (05:42)
[2018-07-15] MEDS: ACETAMINOPHEN/CODEINE 300/30MG TABLET PO SCH ×4 (06:00→14:24)
[2018-07-15] MEDS: FUROSEMIDE 40 MG/4 ML VIAL IVP SCH (06:01)
[2018-07-15 06:53] LABS: CALCIUM 8.6 mg/dL (8.5-10.1); CREATININE 1.3 mg/dL (0.6-1.0); GFR 39.1; POTASSIUM 3.7 mmol/L (3.5-5.1)
[2018-07-15 07:05] LABS: BASO % 0 % (0-3); EOS % 0 % (0-3); HEMATOCRIT 30.4 % (36.0-47.0); HEMOGLOBIN 9.7 g/dL (12.0-15.5); LYMPH # 0.8 x10^3/uL (1.0-4.8); LYMPH % 18 % (24-48); MEAN CORPUSCULAR HEMOGLOBIN 27 pg (25-35); MEAN CORPUSCULAR HGB CONC 32 g/dL (31-37); MEAN CORPUSCULAR VOLUME 86 fL (79-100); MONO # 0.5 x10^3/uL (0.0-1.1); MONO % 10 % (0-9); NEUT # 3.3 x10^3uL (1.8-7.7); NEUT % 71 % (31-73); PLATELET COUNT 120 x10^3/uL (140-400); RED BLOOD COUNT 3.54 x10^6/uL (3.50-5.40); WHITE BLOOD COUNT 4.7 x10^3/uL (4.0-11.0)
[2018-07-15] MEDS: FLUCONAZOLE 100 MG TABLET. PO SCH (07:48)
[2018-07-15] MEDS: amLODIPine BESYLATE 2.5 MG TABLET PO SCH (07:48)
[2018-07-15] MEDS: PANTOPRAZOLE 40 MG TABLET. PO SCH ×2 (07:48→17:03)
[2018-07-15] MEDS: CARVEDILOL 6.25 MG TABLET PO SCH ×2 (07:48→17:03)
[2018-07-15] MEDS: METOPROLOL SUCC 24HR ER 50 MG TAB.ER.24H. PO SCH ×2 (07:48→20:56)
[2018-07-15] MEDS: POTASSIUM CHLORIDE 10 MEQ TABLET.ER. PO SCH (07:49)
[2018-07-15] MEDS: ACETAMINOPHEN 325 MG TABLET PO PRN (07:49)
[2018-07-15] MEDS: APIXABAN 5 MG TABLET. PO SCH ×2 (07:49→20:59)
[2018-07-15] MEDS: NYSTATIN TOPICAL POWDER 15GM BOTTLE. TP SCH ×2 (07:50→21:00)
[2018-07-15] MEDS: glyBURIDE 5 MG TABLET PO SCH (07:51)
[2018-07-15] MEDS: LIDOCAINE (700MG/PATCH) PATCH. TD SCH (07:53)
[2018-07-15] MEDS ORDERED: fentaNYL 25MCG/HR 1 PATCH PATCH TD SCH (09:00)
[2018-07-15 11:00] VITALS: BP 121/71
[2018-07-15 15:49] VITALS: BP 150/59
[2018-07-15 19:45] VITALS: BP 121/68
[2018-07-15] MEDS: ATORVASTATIN CALCIUM 10 MG TABLET. PO SCH (20:59)
[2018-07-15 23:02] VITALS: BP 125/66
[2018-07-16 05:34] VITALS: BP 128/66
[2018-07-16] MEDS: ACETAMINOPHEN/CODEINE 300/30MG TABLET PO SCH ×2 (06:00)
[2018-07-16] MEDS: FUROSEMIDE 40 MG/4 ML VIAL IVP SCH (06:02)
[2018-07-16] MEDS: LIDOCAINE (700MG/PATCH) PATCH. TD SCH (08:32)
[2018-07-16] MEDS: PANTOPRAZOLE 40 MG TABLET. PO SCH (08:32)
[2018-07-16] MEDS: FLUCONAZOLE 100 MG TABLET. PO SCH (08:33)
[2018-07-16] MEDS: CARVEDILOL 6.25 MG TABLET PO SCH (08:33)
[2018-07-16] MEDS: METOPROLOL SUCC 24HR ER 50 MG TAB.ER.24H. PO SCH (08:33)
[2018-07-16] MEDS: APIXABAN 5 MG TABLET. PO SCH (08:34)
[2018-07-16] MEDS: amLODIPine BESYLATE 2.5 MG TABLET PO SCH (08:34)
[2018-07-16] MEDS: POTASSIUM CHLORIDE 10 MEQ TABLET.ER. PO SCH (08:34)
[2018-07-16] MEDS: glyBURIDE 5 MG TABLET PO SCH (08:34)
[2018-07-16] MEDS: NYSTATIN TOPICAL POWDER 15GM BOTTLE. TP SCH (09:00)
[2018-07-16 10:44] VITALS: BP 129/74
[2018-07-16 11:02] VITALS: BP 129/74
--- NOTE | 2018-07-16 22:40 | DS ---
DATE OF DISCHARGE: 07/16/2018 The patient came in with the cellulitis to her legs. The patient also was noted to have mild congestive heart failure. The patient made good progress. She was placed on antibiotics by mouth and then the patient made good progress overall. There were no complications. The patient had anemia of chronic disease, slight elevated with sed rate. BNP was elevated to 5800. IMPRESSION: Acute on top of chronic diastolic heart failure. The patient had a recent CTA, which was negative. The patient was mobile. IMPRESSION: 1. Cellulitis to her legs. 2. Acute on top of chronic diastolic heart failure. Continue with her drug regimen as an outpatient. She will be transferred to the [facility] for further rehabilitation, anemia of chronic disease, morbid obesity, moderate-protein malnutrition. DINORAH LEWIS MD DR: JOSE/rosie JOB#: [id number] / [id number]
== END 2018-07-16 11:07 | DRG 292 ==
LOC: ER 21:00 → 1 SOUTH 23:27
PROVIDERS: ADMIT Family Medicine; ATTEND Family Medicine
DX: I11.0 Hypertensive heart disease with heart failure (principal); L03.115 Cellulitis of right lower limb; L97.919 Non-pressure chronic ulcer of unspecified part of right lower leg with unspecified severity; L97.929 Non-pressure chronic ulcer of unspecified part of left lower leg with unspecified severity; L03.116 Cellulitis of left lower limb; E44.0 Moderate protein-calorie malnutrition; I50.33 Acute on chronic diastolic (congestive) heart failure; E11.51 Type 2 diabetes mellitus with diabetic peripheral angiopathy without gangrene; E11.622 Type 2 diabetes mellitus with other skin ulcer; G89.29 Other chronic pain; M19.90 Unspecified osteoarthritis, unspecified site; E66.01 Morbid (severe) obesity due to excess calories; I25.10 Atherosclerotic heart disease of native coronary artery without angina pectoris; I27.20 Pulmonary hypertension, unspecified; I83.009 Varicose veins of unspecified lower extremity with ulcer of unspecified site; I87.2 Venous insufficiency (chronic) (peripheral); Z79.01 Long term (current) use of anticoagulants; Z86.73 Personal history of transient ischemic attack (TIA), and cerebral infarction without residual deficits; Z90.710 Acquired absence of both cervix and uterus; Z88.5 Allergy status to narcotic agent
CPT/HCPCS: 36415; 51702; 71045; 72131; 80048; 80076; 81001; 82550; 82947; 83735; 83880; 84443; 84484; 85025; 85379; 85610; 85651; 85730; 93005; 94640; 96374; J1940; J3010; 99285-25

== ENCOUNTER 2018-11-01 11:54 | Inpatient (IN) | payer MEDICARE, BC ==
[2018-10-31] MEDS: IPRATRPIUM/ALBUTEROL 0.5/2.5MG 3 ML NEBU. NEB SCH (19:26)
[~2018-11-01] VITALS: Ht 167.6 cm; Wt 92.7 kg
[~2018-11-01 11:54] MED LIST changes: +ACET-704 PO; +CELE100C PO; +CYAN-25 PO; -MELA3TAB2 PO; +MELA3TAB56 PO
--- NOTE | 2018-11-01 12:30 | PHYS DOC ---
Past History Past Medical History: CHF, COPD, Heart Disease, UTI Past Surgical History: Other Smoking: Non-smoker Alcohol Use: None Drug Use: None Adult General Chief Complaint Chief Complaint: GENERALIZED BODY ACHES HPI HPI 83-year-old female presents with shortness of breath and "pain all over". The patient recently had angioplasty of the femoral artery on the right leg. She has been on fentanyl patches and is being reduced to hydrocodone oral pills. This morning around 1 AM, the patient was significant pain that she couldn't handle on. She went to [place] emergency room. She was given one P[place] 7 at 4 AM. The patient went home. She presents this emergency room she continues to have pain. She took one Posen 5/325 around 9 AM. Neither on these have resolved her pain adequately. On arrival, the patient's oxygen saturation was in the mid 70s. The patient admits that she has been short of breath and having intermittent chest discomfort the last couple of days. The patient's daughter tells me that she thinks her mother has been depressed lately. She has been acting out and has mentioned killing herself in passing a few times. Patient has a history of bipolar. Review of Systems Review of Systems Constitutional: Denies fever or chills [] Eyes: Denies change in visual acuity, redness, or eye pain [] HENT: Denies nasal congestion or sore throat [] Respiratory: shortness of breath [] Cardiovascular: No additional information not addressed in HPI [] GI: Denies abdominal pain, nausea, vomiting, bloody stools or diarrhea [] : Denies dysuria or hematuria [] Musculoskeletal: General body pain [] Integument: Denies rash or skin lesions [] Neurologic: Denies headache, focal weakness or sensory changes [] Endocrine: Denies polyuria or polydipsia [] All other systems were reviewed and found to be within normal limits, except as documented in this note. Allergies Allergies Allergies Coded Allergies Type Severity Reaction Last Updated Verified morphine Allergy Intermediate RASH 11/08/17 Yes Physical Exam Physical Exam Constitutional: Well developed, well nourished, no acute distress, non-toxic appearance. [] HENT: Normocephalic, atraumatic, bilateral external ears normal, oropharynx moist, no oral exudates, nose normal. [] Eyes: PERRLA, EOMI, conjunctiva normal, no discharge. [] Neck: Normal range of motion, no tenderness, supple, no stridor. [] Cardiovascular:Heart rate regular rhythm, no murmur [] Lungs & Thorax: Bilateral breath sounds diminished but clear to auscultation [] Abdomen: Bowel sounds normal, soft, no tenderness, no masses, no pulsatile masses. [] Skin: Warm, dry, no erythema, no rash. [] Back: No tenderness, no CVA tenderness. [] Extremities: No tenderness, no cyanosis, no clubbing, ROM intact, 2+ pitting edema bilateral lower extremities. [] Neurologic: Alert and oriented X 3, normal motor function, normal sensory function, no focal deficits noted. [] Psychologic: Affect normal, judgement normal, mood normal. [] Current Patient Data Vital Signs Vital Signs Date Time Temp Pulse Resp B/P (MAP) Pulse Ox O2 Delivery O2 Flow Rate FiO2 11/01/18 12:18 98.6 76 20 77 Room Air EKG EKG [] Radiology/Procedures Radiology/Procedures [] Impressions: CHEST PA LATERAL History: Shortness of breath. Comparison with 07/13/2018 FINDINGS: Cardiomediastinal silhouette remains widened. No evidence of pneumothorax. No pleural effusion. No consolidating infiltrate. Mild markings both lung bases, compatible with atelectasis or infiltrate. Aorta is calcified and tortuous. IMPRESSION: Mild bibasilar atelectasis or infiltrate. Electronically signed by: Maverick Ly MD (11/01/2018 12:51 PM) [facility] DICTATED AND SIGNED BY: MAVERICK LY MD DATE: 11/01/18 1257 CC: ESTHELA GARCIA DO; DINORAH LEWIS MD ~ Course & Med Decision Making Course & Med Decision Making Pertinent Labs and Imaging studies reviewed. (See chart for details) The patient's chest x-ray suggestive of pneumonia. I will start the patient on Rocephin and azithromycin. Blood cultures have been sent. I discussed the patient with Dr. Lewis and he has accepted her for admission. [] Dragon Disclaimer Dragon Disclaimer This electronic medical record was generated, in whole or in part, using a voice recognition dictation system. Departure Departure: Impression: Primary Impression: Pneumonia Additional Impressions: Depression Pain Disposition: ADMITTED INPATIENT Admitting Physician: Dinorah Lewis Condition: STABLE Referrals: DINORAH LEWIS MD (PCP) Problem Qualifiers Primary Impression: Pneumonia Pneumonia type: due to unspecified organism Laterality: bilateral Lung location: lower lobe of lung Qualified Codes: J18.1 - Lobar pneumonia, unspecified organism ESTHELA GARCIA DO Nov 01, 2018 12:30
--- NOTE | 2018-11-01 12:45 | EKG ---
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
[2018-11-01] MEDS ORDERED: HYDROcodone/APAP 5/325MG 1 TAB TABLET PO ONE (12:50)
--- NOTE | 2018-11-01 12:54 | RAD ---
CHEST PA LATERAL History: Shortness of breath. Comparison with 07/13/2018 FINDINGS: Cardiomediastinal silhouette remains widened. No evidence of pneumothorax. No pleural effusion. No consolidating infiltrate. Mild markings both lung bases, compatible with atelectasis or infiltrate. Aorta is calcified and tortuous. IMPRESSION: Mild bibasilar atelectasis or infiltrate. Electronically signed by: Maverick Ly MD (11/01/2018 12:51 PM) [facility]
[2018-11-01 13:31] LABS: BASO % 1 % (0-3); EOS # 0.1 x10^3/uL (0.0-0.7); EOS % 1 % (0-3); HEMATOCRIT 26.7 % (36.0-47.0); HEMOGLOBIN 8.3 g/dL (12.0-15.5); LYMPH # 0.8 x10^3/uL (1.0-4.8); LYMPH % 16 % (24-48); MEAN CORPUSCULAR HEMOGLOBIN 29 pg (25-35); MEAN CORPUSCULAR HGB CONC 31 g/dL (31-37); MEAN CORPUSCULAR VOLUME 92 fL (79-100); MONO # 0.5 x10^3/uL (0.0-1.1); MONO % 9 % (0-9); NEUT # 3.8 x10^3uL (1.8-7.7); NEUT % 73 % (31-73); PLATELET COUNT 148 x10^3/uL (140-400); RED BLOOD COUNT 2.91 x10^6/uL (3.50-5.40); RED CELL DISTRIBUTION WIDTH 20.4 % (11.5-14.5); WHITE BLOOD COUNT 5.1 x10^3/uL (4.0-11.0)
[2018-11-01] MEDS ORDERED: IV NORMAL SALINE 250ML 250 ML ONE (13:33)
[2018-11-01] MEDS ORDERED: IV NORMAL SALINE 50ML 50 ML ONE (13:33)
[2018-11-01] MEDS ORDERED: AZITHROMYCIN 500 MG VIAL. IV ONE (13:33)
[2018-11-01] MEDS ORDERED: cefTRIAXone SODIUM 1 GM VIAL ONE (13:34)
[2018-11-01 13:36] LABS: BACTERIA,URINE 0 /HPF (0-FEW); BILIRUBIN,URINE NEG (NEG); CLARITY,URINE CLEAR; COLOR,URINE YELLOW; GLUCOSE,URINE NEG (NEG); NITRITE,URINE NEG (NEG); RBC,URINE 0 /HPF (0-2); SQUAMOUS EPITHELIAL CELL,UR OCC /LPF; UROBILINOGEN,URINE 0.2 mg/dL (0.2 mg/dL); WBC,URINE RARE /HPF (0-4)
[2018-11-01 13:37] LABS: AMORPHOUS SEDIMENT,UR PRESENT /HPF
[2018-11-01 13:40] LABS: ALBUMIN 3.2 g/dL (3.4-5.0); ALBUMIN/GLOBULIN RATIO 0.8 (1.0-1.7); CALCIUM 8.7 mg/dL (8.5-10.1); CREATININE 1.4 mg/dL (0.6-1.0); GFR 35.8; POTASSIUM 4.1 mmol/L (3.5-5.1); TOTAL BILIRUBIN 0.5 mg/dL (0.2-1.0); TOTAL PROTEIN 7.3 g/dL (6.4-8.2)
[2018-11-01] MEDS ORDERED: AZITHROMYCIN 500 MG in IV NORMAL SALINE 250ML 250 ML IV ONE (14:00)
[2018-11-01 14:30] LABS: ANISOCYTOSIS SLIGHT; HYPOCHROMIA SLIGHT; MICROCYTOSIS SLIGHT; PLT ESTIMATE ADEQUATE (ADEQUATE); POLYCHROMASIA SLIGHT; TARGET CELLS OCC
[2018-11-01 14:31] LABS: OVALOCYTES FEW
[2018-11-01 16:41] VITALS: BP 160/89
[2018-11-01] MEDS ORDERED: CLOP75TA57 PO (18:06)
[2018-11-01] MEDS ORDERED: POTA20TA4 PO (18:06)
[2018-11-01] MEDS ORDERED: HYDR-2869 PO (18:06)
[2018-11-01] MEDS ORDERED: GABA-586 PO (18:06)
--- NOTE | 2018-11-01 19:30 | NUR ---
The patient, GENARO JOSHUA, 83 y/o, F admitted by DINORAH LEWIS MD, to room 123, was given written information regarding hospital policies, unit procedures and contact persons. Valuables were checked and left with the pt. Pt placed on telemetry, physical and social needs assessed. Medications and medical history reviewed. Pt expresses she does not want to use oxygen via nasal cannula. She states,"I do not use it at home and will not when I go back. I don't want to use it here. It makes it hard to breathe." Pt counseled on reason for use of supplementary oxygen and alternatives to the nasal cannula were discussed. At this moment, pt continues to tolerate the nasal cannula and prefers it to an oxygen mask. Will continue to monitor.
[2018-11-01 20:11] VITALS: BP 145/81
[2018-11-01] MEDS ORDERED: ACETAMINOPHEN 325 MG TABLET PO PRN (20:15)
[2018-11-01] MEDS ORDERED: METOPROLOL SUCC 24HR ER 50 MG TAB.ER.24H. PO SCH (21:00)
[2018-11-01] MEDS: PANTOPRAZOLE 40 MG TABLET. PO SCH (21:00)
[2018-11-01] MEDS: NYSTATIN TOPICAL POWDER 15GM BOTTLE. TP SCH (21:00)
[2018-11-01] MEDS: CARVEDILOL 6.25 MG TABLET PO SCH (21:00)
[2018-11-01] MEDS: GABAPENTIN 300 MG CAPSULE. PO SCH (22:02)
[2018-11-01] MEDS: HYDROcodone/APAP 5/325MG 1 TAB TABLET PO PRN (22:02)
[2018-11-01] MEDS: ATORVASTATIN CALCIUM 10 MG TABLET. PO SCH (22:02)
[2018-11-01 22:48] VITALS: BP 121/67
[2018-11-02] MEDS ORDERED: BENZOCAINE/MENTHOL LOZNGE 18'S BOX. PO PRN (03:30)
[2018-11-02] MEDS: IPRATRPIUM/ALBUTEROL 0.5/2.5MG 3 ML NEBU. NEB SCH ×4 (04:29→21:25)
[2018-11-02] MEDS: ACETAMINOPHEN/CODEINE 300/30MG TABLET PO SCH ×5 (05:47→23:49)
[2018-11-02 06:08] VITALS: BP 133/78
[2018-11-02] MEDS ORDERED: glyBURIDE 5 MG TABLET PO SCH (08:00)
[2018-11-02] MEDS ORDERED: FUROSEMIDE 40 MG TABLET PO SCH (09:00)
[2018-11-02] MEDS: LIDOCAINE (700MG/PATCH) PATCH. TP SCH ×2 (09:00→11:18)
[2018-11-02] MEDS: CELECOXIB 100 MG CAPSULE PO SCH (11:15)
[2018-11-02] MEDS: PANTOPRAZOLE 40 MG TABLET. PO SCH ×2 (11:15→17:50)
[2018-11-02] MEDS: POTASSIUM CHLORIDE 20 MEQ TABLET.ER. PO SCH (11:15)
[2018-11-02] MEDS: CYANOCOBALAMIN (VITAMIN B-12) 1,000 MCG TABLET. PO SCH (11:15)
[2018-11-02] MEDS: CARVEDILOL 6.25 MG TABLET PO SCH ×2 (11:16→17:50)
[2018-11-02] MEDS: CLOPIDOGREL BISULFATE 75 MG TABLET PO SCH (11:16)
[2018-11-02] MEDS: FUROSEMIDE 40 MG/4 ML VIAL IVP SCH (11:17)
[2018-11-02] MEDS: amLODIPine BESYLATE 2.5 MG TABLET PO SCH (11:17)
[2018-11-02] MEDS: NYSTATIN TOPICAL POWDER 15GM BOTTLE. TP SCH ×2 (11:18→21:00)
[2018-11-02 11:25] VITALS: BP 162/85
--- NOTE | 2018-11-02 12:44 | HP ---
ADMIT DATE: HISTORY OF PRESENT ILLNESS: An 83-year-old female came in through the Emergency Room. The patient was having some shortness of breath. She also complains of severe pain in her left hip. The patient also has some type of peripheral neuropathy, but more importantly, her oxygen saturation was in the mid-70s when she came in through the Emergency Room, thought that the patient had some exacerbation of her CHF and was admitted to the hospital for further evaluation and treatment thereof. She has also been reluctant to keep her oxygen on. She has been having episodes of mention of killing herself in the past. She has a history of bipolar disease. So primarily, she was admitted for her CHF at this time and acute respiratory failure. PAST MEDICAL HISTORY: TIA, headaches, heart attacks, congestive heart failure, coronary stent, hypercholesterolemia, abdominal surgery, , cholecystectomy, hysterectomy, GERD, arthritis, osteoarthritis, joint pain, bilateral total knee replacements, back pain, hypothyroidism. PNEUMOCOCCAL VACCINATION: Up-to-date. FAMILY HISTORY: Parents are from unknown causes. Brother with cancer. ALLERGIES: MORPHINE. MEDICATIONS: Medications coughlin, when she does take them, she is on Plavix 75 mg a day, pravastatin 20 mg, hydralazine 50 t.i.d., carvedilol 6.25, metoprolol 50 mg, felodipine 2.5, Celebrex 100, acetaminophen, gabapentin 300 change it to 3 times a day, potassium chloride, furosemide, Protonix, glyburide 2.5 mg, nystatin 1.5%, lidocaine patch, B12. SOCIAL HISTORY: The patient lives with her . She denies smoking, alcohol or drug use. The patient apparently is a full code. REVIEW OF SYSTEMS: Outside of her main complaint is her shortness of breath and the pain down her left leg that she has, she reports that about 8 or 9. She denies any nausea, vomiting, melena, hematochezia, or hematemesis. PHYSICAL EXAMINATION: GENERAL: This is a pleasant white female, somewhat acting out at times, not keeping her oxygen on. VITAL SIGNS: Blood pressure 148/80, respiratory rate 18, pulse 73, afebrile, 3 liters at 95%. HEENT: The patient's, otherwise, head was atraumatic, normocephalic. Eyes: PERRLA without jaundice. The patient has a rough hoarse voice. Mouth and throat: Poor dentition. NECK: Supple. LUNGS: Diminished with crackles in the bases. CARDIOVASCULAR: Regular sinus rhythm. ABDOMEN: Protuberant, soft, but nontender. EXTREMITIES: No clubbing, cyanosis. Trace edema. The patient has some problems with her toes. Apparently, she has been told that she might have osteomyelitis, but review of the chart from [facility] says she does not. LABORATORY DATA: Significant for a low hemoglobin and hematocrit 8.3 and 26. Her blood sugar was low at 68, stop the glyburide. Sodium ____, potassium ____, BUN and creatinine were 41 and 1.4. Her BNP notably was over 6400. So at any case, the patient was admitted for acute respiratory failure with hypoxia, acute on top of chronic congestive heart failure exacerbation, also chronic obstructive pulmonary disease with emphysema, also history of bipolar disease and severe arthritis in multiple joints. She will be monitored, IV Lasix, pain management, breathing treatments and make sure she keeps her oxygen on. DINORAH LEWIS MD DR: JOSE/rosie JOB#: [id number] / [id number]
[2018-11-02 14:15] VITALS: BP 143/87
[2018-11-02 20:09] VITALS: BP 136/69
[2018-11-02] MEDS: ATORVASTATIN CALCIUM 10 MG TABLET. PO SCH (21:38)
[2018-11-02] MEDS: GABAPENTIN 300 MG CAPSULE. PO SCH (21:38)
[2018-11-02] MEDS: HYDROcodone/APAP 5/325MG 1 TAB TABLET PO PRN (21:47)
[2018-11-02 22:59] VITALS: BP 117/73
--- NOTE | 2018-11-02 23:32 | NUR ---
Pt expressing suicidal ideation. Pt states,"I wish I would tonight. I am so miserable." Pt requests that instead of oxygen, we give her mentholatum to put on her nose. After multiple explanations of the importance of supplemental oxygen, disease process and medications for pneumonia, pt repeats same questions and objections. Consult placed with Dr. Parekh. Will continue to monitor.
[2018-11-03] MEDS: IPRATRPIUM/ALBUTEROL 0.5/2.5MG 3 ML NEBU. NEB SCH ×4 (05:35→21:31)
[2018-11-03] MEDS: ACETAMINOPHEN/CODEINE 300/30MG TABLET PO SCH ×3 (05:45→18:01)
[2018-11-03 05:52] VITALS: BP 128/81
[2018-11-03 06:16] LABS: BASO % 1 % (0-3); EOS % 1 % (0-3); HEMATOCRIT 24.5 % (36.0-47.0); HEMOGLOBIN 7.7 g/dL (12.0-15.5); LYMPH # 0.7 x10^3/uL (1.0-4.8); LYMPH % 13 % (24-48); MEAN CORPUSCULAR HEMOGLOBIN 29 pg (25-35); MEAN CORPUSCULAR HGB CONC 31 g/dL (31-37); MEAN CORPUSCULAR VOLUME 92 fL (79-100); MONO # 0.5 x10^3/uL (0.0-1.1); MONO % 9 % (0-9); NEUT # 3.9 x10^3uL (1.8-7.7); NEUT % 76 % (31-73); PLATELET COUNT 139 x10^3/uL (140-400); RED BLOOD COUNT 2.66 x10^6/uL (3.50-5.40); RED CELL DISTRIBUTION WIDTH 20.2 % (11.5-14.5); WHITE BLOOD COUNT 5.1 x10^3/uL (4.0-11.0)
[2018-11-03 06:28] LABS: CALCIUM 8.6 mg/dL (8.5-10.1); CREATININE 1.4 mg/dL (0.6-1.0); GFR 35.8; POTASSIUM 4.3 mmol/L (3.5-5.1)
[2018-11-03] MEDS: CARVEDILOL 6.25 MG TABLET PO SCH ×2 (08:23→16:38)
[2018-11-03] MEDS: CLOPIDOGREL BISULFATE 75 MG TABLET PO SCH (08:24)
[2018-11-03] MEDS: amLODIPine BESYLATE 2.5 MG TABLET PO SCH (08:24)
[2018-11-03] MEDS: PANTOPRAZOLE 40 MG TABLET. PO SCH ×2 (08:24→16:37)
[2018-11-03] MEDS: POTASSIUM CHLORIDE 20 MEQ TABLET.ER. PO SCH (08:24)
[2018-11-03] MEDS: CELECOXIB 100 MG CAPSULE PO SCH (08:24)
[2018-11-03] MEDS: FUROSEMIDE 40 MG/4 ML VIAL IVP SCH (08:25)
[2018-11-03] MEDS: CYANOCOBALAMIN (VITAMIN B-12) 1,000 MCG TABLET. PO SCH (08:25)
[2018-11-03] MEDS: LIDOCAINE (700MG/PATCH) PATCH. TP SCH ×2 (08:25→09:00)
[2018-11-03] MEDS: NYSTATIN TOPICAL POWDER 15GM BOTTLE. TP SCH ×3 (08:26→21:00)
--- NOTE | 2018-11-03 09:50 | NUR ---
RN spoke with patient this morning regarding suicidal comments. Pt states she no longer feels that way, was feeling frustrated last night and not "satisfied". She is discouraged by needing to wear oxygen, states that it is not comfortable. Tried a mask last night but states it was too big. Asking how long she has to wear oxygen, RN educated patient about pneumonia and it does take some time to recover. Educated patient on importance of wearing oxygen. Pt sitting up eating breakfast, took pills without fuss. Is talking about going to her doctors appointment on 11/05 for her toe. RN does not feel patient is at risk to harm herself. RN will continue to monitor for signs of SI. Pts lung sounds have expiratory wheezes, crackles in LL base. WCTM.
[2018-11-03 11:36] VITALS: BP 148/77
--- NOTE | 2018-11-03 12:44 | PN ---
DATE: SUBJECTIVE: This is an 83-year-old female in with congestive heart failure, acute respiratory failure. The patient's oxygen saturation down to 70s. Nurses were having trouble keeping her on her oxygen. OBJECTIVE: VITAL SIGNS: Blood pressure 128/80, respiratory rate 20, pulse 84 and afebrile, 3.5 liters at 96%. She has been as high as 5 liters. GENERAL: The patient is alert and oriented, but is pale appearing. LUNGS: Diminished, some crackles noted in the bases, but markedly improved from where she was. The patient also shows an improvement in her oxygenation is noted and will continue to be monitored on that. CARDIOVASCULAR: Apparently, she was throwing some type of irregular regular heart rhythm. The patient has been noted to have some possible ventricular arrhythmias and we will continue to be monitored accordingly. We will consult with Cardiology on that situation. LABORATORY DATA: In the meantime, the patient's labs are except for hemoglobin dropping down to 7.7. The patient's hemoglobin is down to 7.7 and 24 sed rate up to 50. The patient's electrolytes look good. Magnesium was also within range. Blood sugars are also very good even without the glyburide. We will continue to monitor. IMPRESSION: Acute on top of chronic diastolic heart failure, ventricular arrhythmias, possible cellulitis to the right toes. We will get a bone scan on that and make further evaluation with Cardiology and monitor her stools for any blood or iron levels as well. IDNORAH LEWIS MD DR: JOSE/rosie JOB#: [id number] / [id number]
[2018-11-03 14:28] VITALS: BP 145/74
[2018-11-03] MEDS: HYDROcodone/APAP 5/325MG 1 TAB TABLET PO PRN (17:59)
--- NOTE | 2018-11-03 19:08 | PDOC ---
Exam Note: Akshat Note: Please also refer to the separate dictated note~for this date of service dictated separately.~Patient seen individually. Discussed the patient with Nursing staff reviewed the chart.~Reviewed interim history and current functioning. Reviewed vital signs,~Labs/ Radiology~and current medications noted below. Continue current treatment with the changes noted in the dictated addendum note Assessment: Vital Signs/I&O: Vital Signs Date Time Temp Pulse Resp B/P (MAP) Pulse Ox O2 Delivery O2 Flow Rate FiO2 11/03/18 18:01 91 Nasal Cannula 5.0 11/03/18 16:38 90 145/74 11/03/18 14:28 97.6 22 I & O 11/02/18 11/02/18 11/03/18 15:00 23:00 07:00 Intake Total 720 ml 480 ml 300 ml Balance 720 ml 480 ml 300 ml Labs: Laboratory Tests Test 11/02/18 20:20 11/02/18 20:34 11/03/18 05:50 11/03/18 07:44 Magnesium Level 2.2 mg/dL (1.8-2.4) Glucose (Fingerstick) 126 mg/dL (70-99) H 87 mg/dL (70-99) White Blood Count 5.1 x10^3/uL (4.0-11.0) Red Blood Count 2.66 x10^6/uL (3.50-5.40) L Hemoglobin 7.7 g/dL (12.0-15.5) L Hematocrit 24.5 % (36.0-47.0) L Mean Corpuscular Volume 92 fL (79-100) Mean Corpuscular Hemoglobin 29 pg (25-35) Mean Corpuscular Hemoglobin Concent 31 g/dL (31-37) Red Cell Distribution Width 20.2 % (11.5-14.5) H Platelet Count 139 x10^3/uL (140-400) L Neutrophils (%) (Auto) 76 % (31-73) H Lymphocytes (%) (Auto) 13 % (24-48) L Monocytes (%) (Auto) 9 % (0-9) Eosinophils (%) (Auto) 1 % (0-3) Basophils (%) (Auto) 1 % (0-3) Neutrophils # (Auto) 3.9 x10^3uL (1.8-7.7) Lymphocytes # (Auto) 0.7 x10^3/uL (1.0-4.8) L Monocytes # (Auto) 0.5 x10^3/uL (0.0-1.1) Eosinophils # (Auto) 0.0 x10^3/uL (0.0-0.7) Basophils # (Auto) 0.0 x10^3/uL (0.0-0.2) Sodium Level 144 mmol/L (136-145) Potassium Level 4.3 mmol/L (3.5-5.1) Chloride Level 107 mmol/L (98-107) Carbon Dioxide Level 30 mmol/L (21-32) Anion Gap 7 (6-14) Blood Urea Nitrogen 32 mg/dL (7-20) H Creatinine 1.4 mg/dL (0.6-1.0) H Estimated GFR (Cockcroft-Gault) 35.8 Glucose Level 78 mg/dL (70-99) Calcium Level 8.6 mg/dL (8.5-10.1) Test 11/03/18 11:58 11/03/18 16:54 Glucose (Fingerstick) 115 mg/dL (70-99) H 162 mg/dL (70-99) H Current Medications: I have reviewed the current psychotropics carefully including drug interactions. Risk benefit ratio favors no change other than as noted in my dictated progress note. Diagnosis: Problems: (1) Major depressive disorder, recurrent episode (2) CHF (congestive heart failure) (3) Diabetes mellitus MITZI GILBERT MD Nov 03, 2018 19:08
[2018-11-03 19:48] VITALS: BP 117/63
[2018-11-03] MEDS: GABAPENTIN 300 MG CAPSULE. PO SCH (21:32)
[2018-11-03] MEDS: ATORVASTATIN CALCIUM 10 MG TABLET. PO SCH (21:33)
[2018-11-04] VITALS (7 sets, daily range): BP systolic 103–146; BP diastolic 60–76
[2018-11-04] MEDS: ACETAMINOPHEN/CODEINE 300/30MG TABLET PO SCH ×4 (00:02→20:35)
[2018-11-04] MEDS: IPRATRPIUM/ALBUTEROL 0.5/2.5MG 3 ML NEBU. NEB SCH ×4 (04:59→20:51)
[2018-11-04 06:47] LABS: BASO % 1 % (0-3); EOS # 0.1 x10^3/uL (0.0-0.7); EOS % 1 % (0-3); HEMATOCRIT 24.7 % (36.0-47.0); HEMOGLOBIN 7.5 g/dL (12.0-15.5); LYMPH # 0.7 x10^3/uL (1.0-4.8); LYMPH % 17 % (24-48); MEAN CORPUSCULAR HEMOGLOBIN 28 pg (25-35); MEAN CORPUSCULAR HGB CONC 31 g/dL (31-37); MEAN CORPUSCULAR VOLUME 92 fL (79-100); MONO # 0.4 x10^3/uL (0.0-1.1); MONO % 10 % (0-9); NEUT # 2.9 x10^3uL (1.8-7.7); NEUT % 71 % (31-73); PLATELET COUNT 139 x10^3/uL (140-400); RED BLOOD COUNT 2.67 x10^6/uL (3.50-5.40); RED CELL DISTRIBUTION WIDTH 20.6 % (11.5-14.5); WHITE BLOOD COUNT 4.2 x10^3/uL (4.0-11.0)
[2018-11-04 07:05] LABS: CALCIUM 8.5 mg/dL (8.5-10.1); CREATININE 1.3 mg/dL (0.6-1.0); POTASSIUM 3.8 mmol/L (3.5-5.1)
--- NOTE | 2018-11-04 08:39 | PDOC2 ---
CARDIAC CONSULT DATE OF CONSULT Date Of Consult DATE: 11/04/18 TIME: 08:37 REASON FOR CONSULT Reason for Consult [place] REFERRING PHYSICIAN Referring Physician Dr. Culp SOURCE Source: Chart review, Patient HPI History of Present Illness This is a 83 yo female who presented secondary to increased pain all over. Most concerned of neuropathy in her bilateral feet. Worse in the 2-3 days prior to admission. Has noticed some mild shortness of breath recently. No chest pain, palpitations, dizziness, diaphoresis, or nausea/vomiting. Reports compliance with medications. PAST MEDICAL HISTORY Past Medical History Cardiovascular: AFIB, CHF, HTN, Hyperlipidemia, Pulmonary hypertension, PAD, Other ( Venous insufficiency with venous stasis ulcers) Pulmonary: COPD CENTRAL NERVOUS SYSTEM: TIA GI: GERD Heme/Onc: No pertinent hx Hepatobiliary: No pertinent hx Psych: No pertinent hx Musculoskeletal: Osteoarthritis, Other (DDD, sciatica, chronic back pain) Infectious disease: No pertinent hx ENT: No pertinent hx Renal/: Urinary Incontinence Endocrine: Diabetes PAST SURGICAL HISTORY Past Surgical History Cholecystectomy, Total knee replacement (bilateral ), Other (back surgery ) FAMILY HISTORY Family History: Hypertension SOCIAL HISTORY Smoke: No ALCOHOL: none Drugs: None Lives: with Family CURRENT MEDICATIONS Current Medications Current Medications Acetaminophen/ Hydrocodone Bitart (Lortab 5/325) 1 tab 1X ONCE PO Last administered on 11/01/18at 12:52; Start 11/01/18 at 12:50; Stop 11/01/18 at 12:51; Status DC Ceftriaxone Sodium 1 gm/ Sodium Chloride 50 ml @ 100 mls/hr 1X ONCE IV Last administered on 11/01/18at 14:03; Start 11/01/18 at 14:00; Stop 11/01/18 at 14:29; Status DC Azithromycin 500 mg/Sodium Chloride 250 ml @ 250 mls/hr 1X ONCE IV Last administered on 11/01/18at 17:50; Start 11/01/18 at 14:00; Stop 11/01/18 at 14:59; Status DC Sodium Chloride 250 ml @ As Directed STK-MED ONCE .ROUTE ; Start 11/01/18 at 13:33; Stop 11/01/18 at 13:33; Status DC Sodium Chloride 50 ml @ As Directed STK-MED ONCE .ROUTE ; Start 11/01/18 at 13:33; Stop 11/01/18 at 13:34; Status DC Azithromycin (Zithromax) 500 mg STK-MED ONCE IV ; Start 11/01/18 at 13:33; Stop 11/01/18 at 13:34; Status DC Ceftriaxone Sodium (Rocephin) 1 gm STK-MED ONCE .ROUTE ; Start 11/01/18 at 13:34; Stop 11/01/18 at 13:34; Status DC Albuterol/ Ipratropium (Duoneb) 3 ml RTQID NEB Last administered on 11/04/18at 04:59; Start 11/01/18 at 20:00 Acetaminophen/ Codeine Phosphate (Tylenol #3) 1 tab Q6HRS PO Last administered on 11/04/18at 06:03; Start 11/02/18 at 00:00 Carvedilol (Coreg) 6.25 mg BIDWMEALS PO Last administered on 11/03/18at 16:38; Start 11/01/18 at 21:00 Celecoxib (CeleBREX) 100 mg DAILY PO Last administered on 11/03/18at 08:26; Start 11/02/18 at 09:00; Stop 11/03/18 at 10:09; Status DC Clopidogrel Bisulfate (Plavix) 75 mg DAILY PO Last administered on 11/03/18at 08:26; Start 11/02/18 at 09:00; Stop 11/03/18 at 10:10; Status DC Cyanocobalamin (Vitamin B-12) 1,000 mcg DAILY PO Last administered on 11/03/18at 08:26; Start 11/02/18 at 09:00 Furosemide (Lasix) 40 mg DAILY PO ; Start 11/02/18 at 09:00; Status Cancel Gabapentin (Neurontin) 300 mg QHS PO Last administered on 11/03/18at 21:33; Start 11/01/18 at 21:00 Hydralazine HCl (Apresoline) 50 mg TID PO Last administered on 11/03/18at 21:33; Start 11/01/18 at 21:00 Lidocaine (Lidoderm) 1 patch DAILY TP ; Start 11/02/18 at 09:00 Metoprolol Succinate (Toprol Xl) 50 mg BID PO ; Start 11/01/18 at 21:00; Stop 11/01/18 at 20:56; Status DC Nystatin (Nystop) 1 ashtyn BID TP Last administered on 11/03/18 21:33; Start 11/01/18 at 21:00 Pantoprazole Sodium (Protonix) 40 mg BIDBFRMEAL PO Last administered on 11/03/18 16:38; Start 11/01/18 at 21:00 Potassium Chloride (Klor-Con) 20 meq DAILY PO Last administered on 11/03/18 08:26; Start 11/02/18 at 09:00 Acetaminophen (Tylenol) 650 mg PRN Q6HRS PRN PO MILD PAIN 1-3; Start 11/01/18 at 20:15 Amlodipine Besylate (Norvasc) 2.5 mg DAILY PO Last administered on 11/03/18 08:26; Start 11/02/18 at 09:00 Glyburide (Diabeta) 2.5 mg DAILYWBKFT PO ; Start 11/02/18 at 08:00; Stop 11/02/18 at 08:54; Status DC Atorvastatin Calcium (Lipitor) 5 mg QHS PO Last administered on 11/03/18 21:33; Start 11/01/18 at 21:00 Furosemide (Lasix) 40 mg DAILY IVP Last administered on 11/03/18 08:26; Start 11/02/18 at 09:00 Acetaminophen/ Hydrocodone Bitart (Lortab 5/325) 1 tab PRN Q8HRS PRN PO PAIN Last administered on 11/02/18at 21:47; Start 11/01/18 at 19:30 Throat Lozenges (Cepacol Sore Throat Lozenge) 1 hollis PRN Q2HR PRN PO SORE THROAT Last administered on 11/02/18at 05:01; Start 11/02/18 at 03:30 Vancomycin HCl (Vanco Per Pharmacy) 1 each PRN DAILY PRN MC SEE COMMENTS; Start 11/04/18 at 08:30; Status UNV Levofloxacin/ Dextrose (Levaquin Per Pharmacy) 1 each PRN DAILY PRN MC SEE COMMENTS; Start 11/04/18 at 08:30; Status UNV Active Scripts Active Metoprolol Succinate ( Xl ) (Metoprolol Succinate) 50 Mg Tab.er.24h 50 Mg PO BID 30 Days Carvedilol 6.25 Mg Tablet 6.25 Mg PO BID 30 Days Nystatin 15 Gm Powder 1 Ashtyn TP BID Reported Plavix (Clopidogrel Bisulfate) 75 Mg Tablet 1 Tab PO DAILY Klor-Con M20 (Potassium Chloride) 20 Meq Tab.er.prt 20 Meq PO DAILY Hydralazine Hcl 50 Mg Tablet 1 Tab PO TID Gabapentin (Gabapentin) 300 Mg Capsule 300 Mg PO QHS Vitamin B-12 (Cyanocobalamin (Vitamin B-12)) 1,000 Mcg Tablet 1 Tab PO DAILY Celebrex (Celecoxib) 100 Mg Capsule 1 Cap PO DAILY Tylenol With Codeine #3 Tablet (Acetaminophen With Codeine) 1 Each Tablet 1 Tab PO Q6HRS Arthritis Pain (Acetaminophen) 650 Mg Tablet.er 650 Mg PO Q6HRS PRN NOT GIVEN THIS ADMISSION NEXT DOSE DUE: DATE: TODAY TIME: IF/WHEN NEEDED Furosemide 40 Mg Tablet 1 Tab PO DAILY LAST DOSE GIVEN: DATE: TODAY TIME: AM NEXT DOSE DUE: DATE: TOMORROW TIME: AM Felodipine Er (Felodipine) 2.5 Mg Tab.er.24h 1 Tab PO DAILY LAST DOSE GIVEN: DATE: TODAY TIME: AM NEXT DOSE DUE: DATE: TOMORROW TIME: AM Lidoderm (Lidocaine) 700 Mg Adh..patch 1 Patch TP DAILY LAST DOSE GIVEN: DATE: TODAY TIME: AM NEXT DOSE DUE: DATE: TOMORROW TIME: AM Pravastatin Sodium 20 Mg Tablet 20 Mg PO QHS LAST DOSE GIVEN: DATE: YESTER TIME: BEDTIME NEXT DOSE DUE: DATE: TODAY TIME: BEDTIME Pantoprazole Sodium 40 Mg Tablet.dr 1 Tab PO BID LAST DOSE GIVEN: DATE: TODAY TIME: AM NEXT DOSE DUE: DATE: TODAY TIME: PM Glyburide 2.5 Mg Tablet 1 Tab PO DAILY LAST DOSE GIVEN: DATE: TODAY TIME: AM NEXT DOSE DUE: DATE: TOMORROW TIME: AM ALLERGIES Allergies: Coded Allergies: morphine (Verified Allergy, Intermediate, RASH, 11/08/17) ROS Review of Systems 14 point ROS conducted with pertinent positives noted above in HPI. PHYSICAL EXAM General: Alert, Oriented X3, Cooperative, No acute distress HEENT: Atraumatic, Mucous membr. moist/pink Lungs: Other (bibasilar crackles ) Heart: Regular rate, Normal S1, Normal S2, Other (2/6 systolic murmur ) Abdomen: Soft Extremities: Normal pulses, Other (trace bilateral LE edema ) Neuro: Normal speech, Sensation intact Psych/Mental Status: Mental status NL, Mood NL MUSCULOSKELETAL: Osteoarthritic changes both hands VITALS Vital Signs Vital Signs Date Time Temp Pulse Resp B/P (MAP) Pulse Ox O2 Delivery O2 Flow Rate FiO2 11/04/18 08:33 Nasal Cannula 3.0 11/04/18 06:09 98.5 76 20 140/75 (96) 94 LABS LABS Laboratory Tests Test 11/02/18 11:30 11/02/18 12:00 11/02/18 16:56 11/02/18 20:20 Erythrocyte Sedimentation Rate 50 (0-25) Glucose (Fingerstick) 142 mg/dL (70-99) 89 mg/dL (70-99) Magnesium Level 2.2 mg/dL (1.8-2.4) Test 11/02/18 20:34 11/03/18 05:50 11/03/18 07:44 11/03/18 11:58 Glucose (Fingerstick) 126 mg/dL (70-99) 87 mg/dL (70-99) 115 mg/dL (70-99) White Blood Count 5.1 x10^3/uL (4.0-11.0) Red Blood Count 2.66 x10^6/uL (3.50-5.40) Hemoglobin 7.7 g/dL (12.0-15.5) Hematocrit 24.5 % (36.0-47.0) Mean Corpuscular Volume 92 fL (79-100) Mean Corpuscular Hemoglobin 29 pg (25-35) Mean Corpuscular Hemoglobin Concent 31 g/dL (31-37) Red Cell Distribution Width 20.2 % (11.5-14.5) Platelet Count 139 x10^3/uL (140-400) Neutrophils (%) (Auto) 76 % (31-73) Lymphocytes (%) (Auto) 13 % (24-48) Monocytes (%) (Auto) 9 % (0-9) Eosinophils (%) (Auto) 1 % (0-3) Basophils (%) (Auto) 1 % (0-3) Neutrophils # (Auto) 3.9 x10^3uL (1.8-7.7) Lymphocytes # (Auto) 0.7 x10^3/uL (1.0-4.8) Monocytes # (Auto) 0.5 x10^3/uL (0.0-1.1) Eosinophils # (Auto) 0.0 x10^3/uL (0.0-0.7) Basophils # (Auto) 0.0 x10^3/uL (0.0-0.2) Sodium Level 144 mmol/L (136-145) Potassium Level 4.3 mmol/L (3.5-5.1) Chloride Level 107 mmol/L (98-107) Carbon Dioxide Level 30 mmol/L (21-32) Anion Gap 7 (6-14) Blood Urea Nitrogen 32 mg/dL (7-20) Creatinine 1.4 mg/dL (0.6-1.0) Estimated GFR (Cockcroft-Gault) 35.8 Glucose Level 78 mg/dL (70-99) Calcium Level 8.6 mg/dL (8.5-10.1) Iron Level 29 ug/dL (50-170) Total Iron Binding Capacity 336 ug/dL (250-450) Iron Saturation 9 % (15-34) Test 11/03/18 16:54 11/03/18 20:44 11/04/18 06:31 11/04/18 08:02 Glucose (Fingerstick) 162 mg/dL (70-99) 146 mg/dL (70-99) 78 mg/dL (70-99) White Blood Count 4.2 x10^3/uL (4.0-11.0) Red Blood Count 2.67 x10^6/uL (3.50-5.40) Hemoglobin 7.5 g/dL (12.0-15.5) Hematocrit 24.7 % (36.0-47.0) Mean Corpuscular Volume 92 fL (79-100) Mean Corpuscular Hemoglobin 28 pg (25-35) Mean Corpuscular Hemoglobin Concent 31 g/dL (31-37) Red Cell Distribution Width 20.6 % (11.5-14.5) Platelet Count 139 x10^3/uL (140-400) Neutrophils (%) (Auto) 71 % (31-73) Lymphocytes (%) (Auto) 17 % (24-48) Monocytes (%) (Auto) 10 % (0-9) Eosinophils (%) (Auto) 1 % (0-3) Basophils (%) (Auto) 1 % (0-3) Neutrophils # (Auto) 2.9 x10^3uL (1.8-7.7) Lymphocytes # (Auto) 0.7 x10^3/uL (1.0-4.8) Monocytes # (Auto) 0.4 x10^3/uL (0.0-1.1) Eosinophils # (Auto) 0.1 x10^3/uL (0.0-0.7) Basophils # (Auto) 0.0 x10^3/uL (0.0-0.2) Sodium Level 143 mmol/L (136-145) Potassium Level 3.8 mmol/L (3.5-5.1) Chloride Level 106 mmol/L (98-107) Carbon Dioxide Level 31 mmol/L (21-32) Anion Gap 6 (6-14) Blood Urea Nitrogen 28 mg/dL (7-20) Creatinine 1.3 mg/dL (0.6-1.0) Estimated GFR (Cockcroft-Gault) 39.0 Glucose Level 77 mg/dL (70-99) Calcium Level 8.5 mg/dL (8.5-10.1) ECHOCARDIOGRAM Echocardiogram <Conclusion> The left ventricle is normal size. Left ventricle systolic function is low normal. The Ejection Fraction is estimated at 50%. There is mild concentric left ventricular hypertrophy. There is no significant aortic valvular stenosis. Doppler and Color Flow revealed no significant aortic regurgitation. Doppler and Color-flow revealed mild mitral regurgitation. Doppler and Color Flow revealed mild tricuspid regurgitation. The PA pressure was >55 mmHg. DATE: 06/06/18 1558 STRESS TEST Stress Test Conclusion 1. Regadenoson cardioisotope stress test did not show any evidence of ischemia or infarct. 2. Normal left ventricular systolic function with ejection fraction calculated at 59%. 3. Low risk for cardiac events. DATE: 06/29/15 1553 ASSESSMENT/PLAN Assessment/Plan 1. Mid acute on chronic diastolic CHF: clinically compensated. Recent EF at 50%. Improved with diuresis 2. Permanent AFIB; had burst of NSVT on teleBlipify Eliquis at home for stroke prevention (not listed on med rec) 3. Venous insufficiency with venous stasis ulcers. Follows outpatient wound clinic 4. 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 5. Hyperlipidemia 6. Hypertension; controlled. 7. Diabetes, II 8. Anemia Recommendations TSH, Mg level Convert coreg to metoprolol for better rate control Hold Plavix, Eliquis for now given anemia Will add low-dose ASA for as secondary/stroke prevention Supportive care INEZ JESUS APRN Nov 04, 2018 08:39
[2018-11-04] MEDS: LIDOCAINE (700MG/PATCH) PATCH. TP SCH (09:00)
--- NOTE | 2018-11-04 09:51 | CONS ---
DATE OF CONSULTATION: 11/03/2018 PROGRESS NOTE This late entry 11/03/2018 covers elements not covered in my initial note. IDENTIFYING DATA: The patient is an 83-year-old female seen in bed 123, 1 [facility] for a psychiatric consult requested by Dr. Culp on account of the patient's suicidal ideation and depression. The patient was seen individually, discussed with nursing staff, reviewed the chart. CHIEF COMPLAINT: "I just said that one time. I had pneumonia and I got frustrated and I said that. I am not depressed. I don't want to kill myself. I just said that." HISTORY OF PRESENT ILLNESS: The patient was admitted via the Emergency Room on account of shortness of breath, severe pain in her left hip with a history of neuropathy, O2 sats in the mid 70s and an exacerbation of her CHF. She had been reluctant to keep her oxygen on. Per note by Dr. Culp, she was having episodes of mentioning of killing herself. Reportedly, she has a history of bipolar disorder, but her medical comorbidities were worsening her psychiatric presentation and I have been asked to consult on her for psychiatric suggestions given the above. The patient minimizes rationalizes, denies most of the above, "I am not depressed. I just said that." She states that her sleep and appetite are fair. No homicidal ideation. No clear psychotic symptoms according to her. She minimizes her mood swings, but past records indicate a prior history of bipolar disorder. PAST PSYCHIATRIC HISTORY: As above. MEDICAL HISTORY: Positive for pneumonia, TIA, headaches, heart attacks, congestive heart failure, coronary stent, hypercholesterolemia, abdominal surgery, , cholecystectomy, hysterectomy, GERD, osteoarthritis, joint pain, bilateral total knee replacement, back pain, hypothyroidism. ALLERGIES: MORPHINE. CURRENT PSYCHOTROPICS: She is on gabapentin 300 mg at bedtime for her neuropathy and no other psychotropic medications. FAMILY HISTORY: Noncontributory. SOCIAL HISTORY: The patient lives with her . No alcohol or drug abuse. She is a full code. MENTAL STATUS EXAMINATION: The patient was seen individually evening of 11/03/2018. She is lying in bed, oriented to herself and situation. Per nursing staff, she has been confused, but she knew she was in Center, knew it was 2018, was unsure of the exact date. Speech is coherent. She has a slightly deeper voice, but typical for her. Abstraction fair. Computation, able to do one step on serial 7s and no more. No active suicidal or homicidal ideation. Attention span short. She minimized a past diagnosis of bipolar disorder. IMPRESSION: Major depressive disorder with history of suicidal ideation; history of bipolar disorder, depressed; anxiety disorder, unspecified; mild cognitive impairment. Rest as above. RECOMMENDATION: From a psychiatric standpoint, I would first stabilize the patient medically for pneumonia once she is stable. If she is still depressed, voicing suicidal ideation, perhaps Wellbutrin could be added, Wellbutrin XL 150 mg a day for her depression. This might be the preferred antidepressant for a patient with bipolar disorder and depression. If she is still suicidal, we may transfer [facility]. Otherwise, she could follow outpatient at the [facility]. Dr. Culp, thank you for the opportunity to participate in your patient's care. We will follow with you. MITZI GILBERT MD DR: CHATA/rosie JOB#: [id number] / [id number]
[2018-11-04] MEDS: CARVEDILOL 6.25 MG TABLET PO SCH (09:59)
[2018-11-04] MEDS: PANTOPRAZOLE 40 MG TABLET. PO SCH ×2 (09:59→18:20)
[2018-11-04] MEDS ORDERED: VANCOMYCIN 2 GM in IV NORMAL SALINE 500ML 500 ML IV ONE (10:00)
[2018-11-04] MEDS: FUROSEMIDE 40 MG/4 ML VIAL IVP SCH (10:46)
[2018-11-04] MEDS: POTASSIUM CHLORIDE 20 MEQ TABLET.ER. PO SCH (10:47)
[2018-11-04] MEDS: CYANOCOBALAMIN (VITAMIN B-12) 1,000 MCG TABLET. PO SCH (10:47)
[2018-11-04] MEDS: HYDROcodone/APAP 5/325MG 1 TAB TABLET PO PRN (10:48)
[2018-11-04] MEDS: amLODIPine BESYLATE 2.5 MG TABLET PO SCH (11:07)
[2018-11-04] MEDS: NYSTATIN TOPICAL POWDER 15GM BOTTLE. TP SCH ×2 (11:08→20:35)
[2018-11-04] MEDS: VANCOMYCIN PER PHARMACY MC PRN (12:44)
--- NOTE | 2018-11-04 12:44 | NUR ---
Pharmacy Vancomycin Dosing Note S:Consulted to monitor and dose vancomycin started 11/04/18. O:GENARO JOSHUA is a 83 year old F with Cellulitis Acute resp failure Height: 5 feet, 6 inches Weight: 94.777518 kg [place] Body Weight: 59.30 Adjusted Body Weight: 73.38 Dosing Weight: Other Antibiotics: Levofloxacin LABS: Last BUN: 28 Last Creatinine: 1.3 Creatinine Clearance: 37.3 Last WBC: Last Procalcitonin: Tmax (past 24 hours): Microbiology: I/O: Drug Levels: Last level: on at Last dose given at Vancomycin Dosing: Loading Dose: 2000 mg x1 Dosing Weight: Target Trough: 15-20 A: Based on: physicians request for dosing P: 1. Begin Vancomycin 200mg loading dose, then 1500 mg IV q24h 2. Follow up Trough level on 11/06/18 at 1130 3. Pharmacy will continue to monitor, follow and adjust therapy as needed. HARRISON LOPEZ, 11/04/18 1027
[2018-11-04] MEDS ORDERED: ONDANSETRON PF 4 MG/2 ML VIAL. IV PRN (14:00)
[2018-11-04] MEDS ORDERED: DEXTROSE 50% 25 GM / 50ML DISP.SYRIN. IV PRN (14:00)
--- NOTE | 2018-11-04 15:00 | NUR ---
Low BP At approx 1145, pt was being helped to toilet by Roz when pt began slurring her words and could not support her weight. Roz and Nury assisted pt to the ground, and pt was unable to lift herself up with a three-person assist. The Natividad was used to get pt back into bed. Pt's VS taken, her SpO2 found to be in the mid-80s and her BP 86/48. Pt c/o pain and demanded pain medication, but this RN explained that pain medication could not be given d/t low BPs. BPs continued to be checked frequently till 1405, with gradual increases (94/52, 88/51, 95/58) until 1405, at which time BP was 134/75. Pt was given Tylenol #3 originally scheduled for 1200 at this time, and pt slept for the best part of several hours after administration of this medication, saying when waking that her pain was resolved. WCTM. Nabil Segura RN
--- NOTE | 2018-11-04 16:00 | RAD ---
BONE SCAN LIMITED Clinical Indication: Peripheral arterial disease. Sore right foot x2-3 days. Comparison: No relevant comparison exams. TECHNIQUE: Patient is injected with 22 mCi of technetium 99m MDP. After routine delay, anterior, posterior, right and left lateral projection static images of the ankles and feet acquired. Findings: The distribution of tracer in the bilateral feet is relatively symmetric. The degree of uptake in the right midfoot is slightly greater than the left. Tracer uptake of the forefoot is relatively symmetric. Tracer distribution in the soft tissues is symmetric. IMPRESSION: Tracer uptake in the right midfoot is slightly greater than the left side. The uptake is nonspecific. Consider correlation with dedicated radiographs. Electronically signed by: Fahad Stuart MD (11/04/2018 3:57 PM) [id number]
[2018-11-04] MEDS: INSULIN LISPRO 300 UNITS/3 ML VIAL. SQ SCH (17:00)
[2018-11-04] MEDS: METOPROLOL SUCC 24HR ER 50 MG TAB.ER.24H. PO SCH (18:28)
--- NOTE | 2018-11-04 18:39 | PDOC ---
Exam Note: Akshat Note: Please also refer to the separate dictated note~for this date of service dictated separately.~Patient seen individually. Discussed the patient with Nursing staff reviewed the chart.~Reviewed interim history and current functioning. Reviewed vital signs,~Labs/ Radiology~and current medications noted below. Continue current treatment with the changes noted in the dictated addendum note Assessment: Vital Signs/I&O: Vital Signs Date Time Temp Pulse Resp B/P (MAP) Pulse Ox O2 Delivery O2 Flow Rate FiO2 11/04/18 18:35 122 109/69 11/04/18 17:28 Nasal Cannula 5.0 11/04/18 15:43 93 11/04/18 11:31 98.2 22 I & O 11/03/18 11/03/18 11/04/18 15:00 23:00 07:00 Intake Total 600 ml 360 ml Output Total 951 ml 251 ml Balance -351 ml 109 ml Labs: Laboratory Tests Test 11/03/18 20:44 11/04/18 06:31 11/04/18 08:02 11/04/18 11:57 Glucose (Fingerstick) 146 mg/dL (70-99) H 78 mg/dL (70-99) 193 mg/dL (70-99) H White Blood Count 4.2 x10^3/uL (4.0-11.0) Red Blood Count 2.67 x10^6/uL (3.50-5.40) L Hemoglobin 7.5 g/dL (12.0-15.5) L Hematocrit 24.7 % (36.0-47.0) L Mean Corpuscular Volume 92 fL (79-100) Mean Corpuscular Hemoglobin 28 pg (25-35) Mean Corpuscular Hemoglobin Concent 31 g/dL (31-37) Red Cell Distribution Width 20.6 % (11.5-14.5) H Platelet Count 139 x10^3/uL (140-400) L Neutrophils (%) (Auto) 71 % (31-73) Lymphocytes (%) (Auto) 17 % (24-48) L Monocytes (%) (Auto) 10 % (0-9) H Eosinophils (%) (Auto) 1 % (0-3) Basophils (%) (Auto) 1 % (0-3) Neutrophils # (Auto) 2.9 x10^3uL (1.8-7.7) Lymphocytes # (Auto) 0.7 x10^3/uL (1.0-4.8) L Monocytes # (Auto) 0.4 x10^3/uL (0.0-1.1) Eosinophils # (Auto) 0.1 x10^3/uL (0.0-0.7) Basophils # (Auto) 0.0 x10^3/uL (0.0-0.2) Sodium Level 143 mmol/L (136-145) Potassium Level 3.8 mmol/L (3.5-5.1) Chloride Level 106 mmol/L (98-107) Carbon Dioxide Level 31 mmol/L (21-32) Anion Gap 6 (6-14) Blood Urea Nitrogen 28 mg/dL (7-20) H Creatinine 1.3 mg/dL (0.6-1.0) H Estimated GFR (Cockcroft-Gault) 39.0 Glucose Level 77 mg/dL (70-99) Calcium Level 8.5 mg/dL (8.5-10.1) Magnesium Level 2.3 mg/dL (1.8-2.4) Thyroid Stimulating Hormone (TSH) 1.021 uIU/mL (0.358-3.740) Current Medications: Meds: Current Medications Medications (Trade) Dose Ordered Sig/Ally Route PRN Reason Start Time Stop Time Status Last Admin Dose Admin Vancomycin HCl (Vanco Per Pharmacy) 1 each PRN DAILY PRN MC SEE COMMENTS 11/04/18 08:30 11/04/18 12:44 Levofloxacin/ Dextrose 100 ml @ 100 mls/hr 1X ONCE IV 11/04/18 09:00 11/04/18 09:59 DC 11/04/18 11:08 Vancomycin HCl 2 gm/Sodium Chloride 500 ml @ 250 mls/hr 1X ONCE IV 11/04/18 10:00 11/04/18 11:59 DC 11/04/18 12:16 Ondansetron HCl (Zofran) 4 mg PRN Q6HRS PRN IV NAUSEA/VOMITING 11/04/18 14:00 11/04/18 14:11 Metoprolol Succinate (Toprol Xl) 50 mg DAILY PO 11/04/18 16:15 11/04/18 18:35 I have reviewed the current psychotropics carefully including drug interactions. Risk benefit ratio favors no change other than as noted in my dictated progress note. Diagnosis: Problems: (1) Renal insufficiency (2) Major depressive disorder, recurrent episode (3) CHF (congestive heart failure) MITZI GILBERT MD Nov 04, 2018 18:39
--- NOTE | 2018-11-04 19:00 | NUR ---
Provided pt's daughter Mercedes an update of pt's condition and how pt's day went. During conversation, Mercedes suggested pt may be experiencing anxiety as pain. WCTM. Nabil Segura RN
[2018-11-04] MEDS: predniSONE 20 MG TABLET PO SCH (19:29)
--- NOTE | 2018-11-04 19:30 | NUR ---
Slurred speech Pt's speech was increasingly slurred after low blood pressure. Dr. Culp notified via telephone, and he ordered a telephone consult with Dr. Mendez. Dr. Mendez paged at approx [phone], and he returned the call at [phone]. This RN reviewed changes in pt's condition with physician, and Dr. Mendez ordered orthostatic blood pressures, a head CT, and to ask pt if she became dizzy when she stood. He would round on pt in the morning, but asked that he be contacted via phone overnight should the CT show any acute processes or if the pt's condition deteriorated. Orders repeated back to physician and entered into [employer]. TM. Nabil Segura RN Addendum: 11/04/18 at 2124 by CLINT SEGURA RN RN Pt has refused head CT. This DINORAH, Yamileth, and nursing protective signal operations supervisor spoke with pt concerning the reasons for obtaining a head CT, but pt continues to refuse. Dr. Culp is aware. TM. Nabil Segura RN
[2018-11-04] MEDS: ATORVASTATIN CALCIUM 10 MG TABLET. PO SCH (20:34)
[2018-11-04] MEDS: LACTOBACILLUS RHAMNOSUS GG 1 CAPSULE. PO SCH (20:34)
[2018-11-04] MEDS: APIXABAN 5 MG TABLET. PO SCH (20:34)
[2018-11-04] MEDS: GABAPENTIN 300 MG CAPSULE. PO SCH (20:34)
--- NOTE | 2018-11-04 22:24 | NUR ---
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 PT REFUSED ДМИТРИЙ HOSE AND SCD HOSE , EXPLAINED THAT THE MD ORDERED AND THE REASONING BEHIND THE ORDERS PT CONTINUE TO REFUSE. PT HAD SOME TYPE OF STOCKING IN HER PURSE AND WANTED THEM PUT ON INSTEAD. STOCKING PLACED ON PT . ORTHO BP TAKEN ORDERED AND THERE WAS A DROP[ WHEN PT STOOD , PT DENIED DIZZINESS WHEN UP NO NEURO CHANGES NOTED. WILL CONTINUE TO MONITOR AND WILL REPORT CHANGES OR ABNORMAL FINDINGS.
--- NOTE | 2018-11-05 04:44 | PN ---
DATE: SUBJECTIVE: An 83-year-old female. She has been in with multiple medical problems. She is reluctant and uncooperative in keeping her oxygen on and she desaturates fairly significantly. It looks like an exacerbation of COPD. She is also being diuresed because of an elevated BNP. The patient's bone scan finally came back and there was no evidence of osteomyelitis, but apparently she had a couple of blood cultures that had come back as positive for Staph aureus or some other gram-positive cocci in chains. The patient has been difficult for nursing staff to follow instructions and to make further assessment on her. OBJECTIVE: VITAL SIGNS: The patient's blood pressure was 146/70, respiratory rate 22, pulse 103/88, temperature 98. The patient is on 3 liters at 93%. She is getting breathing treatments as well and had to place her on a sliding scale as her blood sugars started to go back up. LUNGS: Basically diminished, but clear. CARDIOVASCULAR: Regular sinus rhythm. Because of these elevated lactic acid reports, she was placed on vancomycin and Levaquin to cover any possibility of sepsis of unknown etiology. Dr. Parekh has also been seeing her and he has kindly made the timely suggestions about her. DIAGNOSES: Include that of sepsis, acute respiratory failure, acute on chronic diastolic heart failure, ventricular arrhythmias, cellulitis to her right toes, positive blood cultures, bacteremia, anemia of chronic disease, iron deficiency anemia. PLAN: The patient to continue on diabetic diet, insulin on a sliding scale, may have to try her on low dose prednisone to see if that will help her breathe any easier than what she has right now. DINORAH LEWIS MD DR: JOSE/rosie JOB#: [id number] / [id number]
[2018-11-05] MEDS: ACETAMINOPHEN/CODEINE 300/30MG TABLET PO SCH ×5 (05:08→23:56)
[2018-11-05] MEDS: IPRATRPIUM/ALBUTEROL 0.5/2.5MG 3 ML NEBU. NEB SCH ×3 (05:30→20:56)
[2018-11-05 05:49] VITALS: BP 126/82
[2018-11-05] MEDS: INSULIN LISPRO 300 UNITS/3 ML VIAL. SQ SCH ×3 (07:51→16:48)
[2018-11-05] MEDS: FUROSEMIDE 40 MG/4 ML VIAL IVP SCH (07:52)
[2018-11-05] MEDS: LACTOBACILLUS RHAMNOSUS GG 1 CAPSULE. PO SCH ×2 (07:53→21:15)
[2018-11-05] MEDS: buPROPion XL 150 MG TAB.ER.24H PO SCH (07:54)
[2018-11-05] MEDS: ASPIRIN ENTERIC COATED 81 MG TABLET.DR. PO SCH (07:54)
[2018-11-05] MEDS: APIXABAN 5 MG TABLET. PO SCH ×2 (07:54→21:15)
[2018-11-05] MEDS: HYDROcodone/APAP 5/325MG 1 TAB TABLET PO PRN (07:54)
[2018-11-05] MEDS: PANTOPRAZOLE 40 MG TABLET. PO SCH ×2 (07:54→15:29)
[2018-11-05] MEDS: CYANOCOBALAMIN (VITAMIN B-12) 1,000 MCG TABLET. PO SCH (07:54)
[2018-11-05] MEDS: METOPROLOL SUCC 24HR ER 50 MG TAB.ER.24H. PO SCH (07:54)
[2018-11-05] MEDS: POTASSIUM CHLORIDE 20 MEQ TABLET.ER. PO SCH (07:54)
[2018-11-05] MEDS: amLODIPine BESYLATE 2.5 MG TABLET PO SCH (07:55)
[2018-11-05] MEDS: LIDOCAINE (700MG/PATCH) PATCH. TP SCH ×2 (07:55→09:00)
[2018-11-05] MEDS: predniSONE 20 MG TABLET PO SCH (07:57)
[2018-11-05] MEDS: NYSTATIN TOPICAL POWDER 15GM BOTTLE. TP SCH ×2 (07:57→21:00)
--- NOTE | 2018-11-05 08:05 | NUR ---
wound care patient seen per wound care consult. see wound assessment. patient has a right 2nd toe DFU, the wound was cleaned, measured and redressed with honey alginate with a foam dressing, wound is dry and crusty, recommendations of changing every 3-4 days. patient assessed from head to toe and no other wounds noted at this time. patient is a current wound clinic patient, patient to f/u in the clinic after discharge, notified DINORAH Osei about the POC and wound care will continue to f/u.
[2018-11-05 10:19] VITALS: BP 130/73
[2018-11-05] MEDS: VANCOMYCIN 1.5 GM in IV NORMAL SALINE 500ML 500 ML IV SCH (13:27)
[2018-11-05 15:04] VITALS: BP 134/80
[2018-11-05] MEDS: LINAGLIPTIN 5 MG TABLET PO SCH (15:29)
[2018-11-05 18:28] VITALS: BP 112/60
[2018-11-05] MEDS: GABAPENTIN 300 MG CAPSULE. PO SCH (21:15)
[2018-11-05] MEDS: ATORVASTATIN CALCIUM 10 MG TABLET. PO SCH (21:15)
--- NOTE | 2018-11-05 21:44 | PDOC ---
Exam Note: Akshat Note: Please also refer to the separate dictated note~for this date of service dictated separately.~Patient seen individually. Discussed the patient with Nursing staff reviewed the chart.~Reviewed interim history and current functioning. Reviewed vital signs,~Labs/ Radiology~and current medications noted below. Continue current treatment with the changes noted in the dictated addendum note Assessment: Vital Signs/I&O: Vital Signs Date Time Temp Pulse Resp B/P (MAP) Pulse Ox O2 Delivery O2 Flow Rate FiO2 11/05/18 21:16 64 112/60 11/05/18 20:57 92 Nasal Cannula 3.0 11/05/18 20:17 20 11/05/18 18:28 98.3 I & O 11/04/18 11/04/18 11/05/18 15:00 23:00 07:00 Intake Total 240 ml 120 ml Balance 240 ml 120 ml Labs: Laboratory Tests Test 11/05/18 07:51 11/05/18 11:30 11/05/18 16:35 Glucose (Fingerstick) 138 mg/dL (70-99) H 237 mg/dL (70-99) H 225 mg/dL (70-99) H Current Medications: Meds: Current Medications Medications (Trade) Dose Ordered Sig/Ally Route PRN Reason Start Time Stop Time Status Last Admin Dose Admin Levofloxacin/ Dextrose 50 ml @ 50 mls/hr Q24H IV 11/05/18 10:00 11/05/18 10:43 Vancomycin HCl 1.5 gm/Sodium Chloride 500 ml @ 250 mls/hr Q24H IV 11/05/18 12:00 11/05/18 13:27 Aspirin (Aspirin Enteric Coated) 81 mg DAILYWBKFT PO 11/05/18 08:00 11/05/18 07:57 Bupropion HCl (Wellbutrin Xl) 150 mg DAILY PO 11/05/18 09:00 11/05/18 07:57 Albuterol/ Ipratropium (Duoneb) 3 ml TID NEB 11/05/18 21:00 11/05/18 20:57 Linagliptin (Tradjenta) 5 mg DAILY PO 11/05/18 15:15 11/05/18 15:29 I have reviewed the current psychotropics carefully including drug interactions. Risk benefit ratio favors no change other than as noted in my dictated progress note. Diagnosis: Problems: (1) Diabetic ulcer of right lower leg (2) Afib (3) Wound of left leg (4) Depression (5) Pneumonia (6) Pain (7) Major depressive disorder, recurrent episode (8) Left-sided chest wall pain (9) Generalized pain (10) CHF (congestive heart failure) (11) Intractable back pain (12) Anemia (13) Cellulitis of right lower extremity (14) Renal insufficiency (15) Diabetes mellitus MITZI GILBERT MD Nov 05, 2018 21:44
[2018-11-05 23:24] VITALS: BP 116/47
--- NOTE | 2018-11-06 01:39 | PN ---
DATE: 11/05/2018 SUBJECTIVE: This is an 83-year-old female in with multiple medical problems. The patient has still been having problems with her breathing, still requires 3 liters and at times she takes it all. She refuses her insulin, so her sugars have been rising. We will have to adjust oral medications, although she does have some renal dysfunction, we cannot just start her on metformin with that in mind. In any case, the patient is resting fairly. She is also becoming more anemic 7.5 and 24. Sed rate was 50. She does have that cellulitis to her toes as well, although the bone scan does not show any evidence of osteomyelitis. The patient is very complicated and she is at times very noncooperative. OBJECTIVE: VITAL SIGNS: Blood pressure 130/70, respiratory rate 22, pulse 61, afebrile. GENERAL: The patient is alert and oriented. LUNGS: Show coarse breath sounds with regular respiratory therapy. CARDIOVASCULAR: Irregular rhythm. ABDOMEN: Soft, protuberant. EXTREMITIES: No clubbing, cyanosis. Trace edema. NEUROLOGIC: Baseline for her, although she does have some drooling. LABORATORY DATA: Her hemoglobin is 7.5 and 24. Her chemistries are basically stable, come down on her creatinine from 1.4 down to 1.3 and her BNP has also come down. She is feeling better in that regard, but she still has multiple medical problems. IMPRESSION: Acute respiratory failure, possible sepsis, acute on chronic diastolic heart failure, ventricular arrhythmia, cellulitis to the right toe, positive blood cultures, bacteremia, anemia of chronic disease, iron deficiency anemia, morbid obesity. Will continue to be monitored accordingly and continue on IV antibiotic therapy until final cultures on that blood culture come back. DINORAH LEWIS MD DR: JOSE/rosie JOB#: [id number] / [id number]
--- NOTE | 2018-11-06 03:26 | PN ---
DATE: 11/04/2018 PSYCHIATRIC PROGRESS NOTE This late entry 11/04/2018 covers elements not covered in my initial note. SUBJECTIVE: I met with the patient in the evening of 11/04/2018 in her room. Discussed with nursing staff, reviewed the chart. Overall, the patient remains somewhat depressed, but minimizes this repeatedly as I met with her individually. She is short and somewhat snappy in her responses as part of her mood symptoms, but seems reasonably oriented as indicated in my prior notes. REVIEW OF SYSTEMS: Positive for some tiredness. She was lying in bed, half asleep, but woke up to interact with me with brief short monosyllabic responses rather gurt indicating she did not feel she had any psychiatric problems that needed to be addressed. Speech is otherwise coherent, abstraction fair, computation impaired, language function intact. Mood, denies being depressed, but affect is irritable and appears depressed. No suicidal or homicidal ideation. LABORATORY DATA: Reviewed. IMPRESSION: Major depressive disorder, recurrent; anxiety disorder, unspecified; mild cognitive impairment. RECOMMENDATION: From a psychiatric standpoint, I do feel the patient would benefit from being on an antidepressant. If she is agreeable perhaps a trial on Wellbutrin-XL 150 mg a day in the morning might be helpful and better even than an SSRI, unless this causes increased irritability. We have to reassess her acceptance of this before initiating, however. MITZI GILBERT MD DR: CHATA/rosie JOB#: [id number] / [id number]
[2018-11-06] MEDS: IPRATRPIUM/ALBUTEROL 0.5/2.5MG 3 ML NEBU. NEB SCH ×3 (05:12→20:42)
[2018-11-06 05:21] VITALS: BP 132/78
[2018-11-06] MEDS: ACETAMINOPHEN/CODEINE 300/30MG TABLET PO SCH ×3 (05:57→17:20)
[2018-11-06 06:38] LABS: CALCIUM 8.7 mg/dL (8.5-10.1); CREATININE 1.5 mg/dL (0.6-1.0); GFR 33.1; POTASSIUM 4.7 mmol/L (3.5-5.1)
[2018-11-06 06:48] LABS: BASO % 1 % (0-3); EOS % 1 % (0-3); HEMATOCRIT 25.6 % (36.0-47.0); LYMPH # 0.8 x10^3/uL (1.0-4.8); LYMPH % 16 % (24-48); MEAN CORPUSCULAR HEMOGLOBIN 29 pg (25-35); MEAN CORPUSCULAR HGB CONC 31 g/dL (31-37); MEAN CORPUSCULAR VOLUME 91 fL (79-100); MONO # 0.6 x10^3/uL (0.0-1.1); MONO % 11 % (0-9); NEUT # 3.8 x10^3uL (1.8-7.7); NEUT % 72 % (31-73); PLATELET COUNT 141 x10^3/uL (140-400); RED BLOOD COUNT 2.81 x10^6/uL (3.50-5.40); RED CELL DISTRIBUTION WIDTH 19.8 % (11.5-14.5); WHITE BLOOD COUNT 5.3 x10^3/uL (4.0-11.0)
[2018-11-06] MEDS: ASPIRIN ENTERIC COATED 81 MG TABLET.DR. PO SCH (07:40)
[2018-11-06] MEDS: FERROUS SULFATE 325 MG TABLET. PO SCH (07:40)
[2018-11-06] MEDS: PANTOPRAZOLE 40 MG TABLET. PO SCH ×2 (07:40→16:21)
[2018-11-06] MEDS: INSULIN LISPRO 300 UNITS/3 ML VIAL. SQ SCH ×3 (08:21→16:31)
--- NOTE | 2018-11-06 08:30 | PDOC ---
CARDIO Progress Notes Date & Time Date of Service DATE: 11/06/18 TIME: 08:25 Time of Evaluation 08:25 Subjective Notes upset, wanting to go home Vitals Vitals Vital Signs Date Time Temp Pulse Resp B/P (MAP) Pulse Ox O2 Delivery O2 Flow Rate FiO2 11/06/18 08:13 Nasal Cannula 3.0 11/06/18 06:58 18 11/06/18 05:21 97.4 69 132/78 (96) 94 Weight Weight [ ] Input and Output I.O. Intake and Output 11/06/18 07:00 Intake Total 2241 ml Balance 2241 ml Intake Oral 1200 ml Blood Product IV Normal Saline Flush 1041 ml # Voids 4 Laboratory Labs Laboratory Tests Test 11/04/18 11:57 11/04/18 17:11 11/04/18 20:10 11/05/18 07:51 Glucose (Fingerstick) 193 mg/dL (70-99) 112 mg/dL (70-99) 155 mg/dL (70-99) 138 mg/dL (70-99) Test 11/05/18 11:30 11/05/18 16:35 11/06/18 05:53 11/06/18 07:46 Glucose (Fingerstick) 237 mg/dL (70-99) 225 mg/dL (70-99) 96 mg/dL (70-99) White Blood Count 5.3 x10^3/uL (4.0-11.0) Red Blood Count 2.81 x10^6/uL (3.50-5.40) Hemoglobin 8.0 g/dL (12.0-15.5) Hematocrit 25.6 % (36.0-47.0) Mean Corpuscular Volume 91 fL (79-100) Mean Corpuscular Hemoglobin 29 pg (25-35) Mean Corpuscular Hemoglobin Concent 31 g/dL (31-37) Red Cell Distribution Width 19.8 % (11.5-14.5) Platelet Count 141 x10^3/uL (140-400) Neutrophils (%) (Auto) 72 % (31-73) Lymphocytes (%) (Auto) 16 % (24-48) Monocytes (%) (Auto) 11 % (0-9) Eosinophils (%) (Auto) 1 % (0-3) Basophils (%) (Auto) 1 % (0-3) Neutrophils # (Auto) 3.8 x10^3uL (1.8-7.7) Lymphocytes # (Auto) 0.8 x10^3/uL (1.0-4.8) Monocytes # (Auto) 0.6 x10^3/uL (0.0-1.1) Eosinophils # (Auto) 0.0 x10^3/uL (0.0-0.7) Basophils # (Auto) 0.0 x10^3/uL (0.0-0.2) Sodium Level 141 mmol/L (136-145) Potassium Level 4.7 mmol/L (3.5-5.1) Chloride Level 103 mmol/L (98-107) Carbon Dioxide Level 33 mmol/L (21-32) Anion Gap 5 (6-14) Blood Urea Nitrogen 30 mg/dL (7-20) Creatinine 1.5 mg/dL (0.6-1.0) Estimated GFR (Cockcroft-Gault) 33.1 Glucose Level 121 mg/dL (70-99) Calcium Level 8.7 mg/dL (8.5-10.1) Microbiology Micro Microbiology 11/01/18 Blood Culture - Preliminary, Resulted 11/01/18 Blood Culture Result 1 (NERIS) - Preliminary, Resulted Physical Exams HEENT: Neck Supple W Full Motion Chest: Symmetric Lungs: Clear to Auscultation Heart: S1S2, RRR Abdomen: Soft N/T Extremities: No Edema Neurology: alert, oriented, follow commands Assessment Assessment 1. Mid acute on chronic diastolic CHF: clinically compensated. 2. Permanent AFIB; rate controlled with metoprolol 3. Venous insufficiency with venous stasis ulcers. Follows outpatient wound clinic 4. PAD 5. Hyperlipidemia; statin 6. Hypertension; controlled. 7. Diabetes, II 8. Anemia; hgb stable. Monitor on Eliquis 9. ANUSHKA Recommendations Continue metoprolol for rate control Consider discontinuing Eliquis and using low-dose ASA for stroke prevention given anemia. Will defer to PCP Supportive care May discharge from a CV standpoint. INEZ JESUS APRN Nov 06, 2018 08:30
[2018-11-06] MEDS: LIDOCAINE (700MG/PATCH) PATCH. TP SCH (09:55)
[2018-11-06] MEDS: buPROPion XL 150 MG TAB.ER.24H PO SCH (09:56)
[2018-11-06] MEDS: LACTOBACILLUS RHAMNOSUS GG 1 CAPSULE. PO SCH ×2 (09:56→21:00)
[2018-11-06] MEDS: CYANOCOBALAMIN (VITAMIN B-12) 1,000 MCG TABLET. PO SCH (09:57)
[2018-11-06] MEDS: LINAGLIPTIN 5 MG TABLET PO SCH (09:57)
[2018-11-06] MEDS: METOPROLOL SUCC 24HR ER 50 MG TAB.ER.24H. PO SCH (09:57)
[2018-11-06] MEDS: POTASSIUM CHLORIDE 20 MEQ TABLET.ER. PO SCH (09:57)
[2018-11-06] MEDS: FUROSEMIDE 40 MG TABLET PO SCH (09:58)
[2018-11-06] MEDS: predniSONE 20 MG TABLET PO SCH (09:58)
[2018-11-06] MEDS: NYSTATIN TOPICAL POWDER 15GM BOTTLE. TP SCH ×2 (09:58→21:00)
[2018-11-06] MEDS: amLODIPine BESYLATE 2.5 MG TABLET PO SCH (09:58)
[2018-11-06 10:48] VITALS: BP 137/66
[2018-11-06 12:15] LABS: VANC TR 17.2 mcg/mL (10.0-20.0)
[2018-11-06] MEDS: VANCOMYCIN PER PHARMACY MC PRN (12:45)
--- NOTE | 2018-11-06 12:45 | NUR ---
Pharmacy Vancomycin Dosing Note S:Consulted to monitor and dose vancomycin started 11/04/18. O:GENARO JOSHUA is a 83 year old F with Cellulitis CAP, . Height: 5 feet, 6 inches Weight: 92.625002 kg [place] Body Weight: 59.30 Adjusted Body Weight: 72.66 Dosing Weight: Other Antibiotics: Levaquin LABS: Last BUN: 30 Last Creatinine: 1.5 Creatinine Clearance: 25.9 Last WBC: 5.3 Last Procalcitonin: Tmax (past 24 hours): Microbiology: I/O: Drug Levels: Last Trough level: 17.2 on 11/06/18 at 1200 Last dose given 11/05/18 at 1327 Vancomycin Dosing: Loading Dose: 2000 mg x1 Dosing Weight: Target Trough: 15-20 A: Based on: physician request for dosing P: 1. Continue Vancomycin 1500 mg IV q24h 2. Follow up Trough level on 11/08/18 at 1130 3. Pharmacy will continue to monitor, follow and adjust therapy as needed. HARRISON LOPEZ, 11/06/18 [id number]
[2018-11-06] MEDS: VANCOMYCIN 1.5 GM in IV NORMAL SALINE 500ML 500 ML IV SCH (13:24)
[2018-11-06 15:23] VITALS: BP 135/84
[2018-11-06 18:42] VITALS: BP 115/62
[2018-11-06 20:42] VITALS: BP 140/86
--- NOTE | 2018-11-06 21:30 | NUR ---
PT informed nurse that she had taken two pills of her home medications (two Lortab 7.5/325) and had thrown the other home medications in the trash. Medications were retrieved from trash in a small baggie. Using [employer] / ?.??, pills identified as Naproxen and Lortab 7.5/325. Nurse telephoned Dr. Culp and informed him of this. Advised not to administer midnight dosing of pain medications and to administer remaining HS medications. PT very worried that we will "tell her family" because "my family doesn't want me" and that we would "tell the long term". PT informed that Dr. Culp was informed of her taking home medications. PT also advised to not take her own medications again. PT is forgetful and will need reinforcement. Addendum: 11/06/18 at 2316 by YOANA BREAUX RN RN PT's room and belongings were searched after this with the PT's permission with no other medications found. Addendum: 11/07/18 at 0141 by YOANA BREAUX RN RN PT's retrieved home medications (x2) were labeled with PT label and taken to Pharmacy.
[2018-11-06] MEDS: ATORVASTATIN CALCIUM 10 MG TABLET. PO SCH (21:42)
[2018-11-06] MEDS: GABAPENTIN 300 MG CAPSULE. PO SCH (21:42)
--- NOTE | 2018-11-06 23:49 | PN ---
DATE: 11/05/2018 PSYCHIATRIC PROGRESS NOTE This late entry, 11/05, covers the elements not covered in my initial note of 11/05. SUBJECTIVE: I met with the patient on the evening of 11/05. Per nursing staff, the patient appears depressed, but she minimizes rationalizes all of her mood symptoms and states she does not feel she is depressed, does not want any psychotropics for it. I again addressed this with her, but she is quite dismissive. She was working on some word finding problems and had two lists for words written out on a piece of paper, was trying to mix the letters up to match the words. It seems like an exercise to help her memory and she seemed to be persevering. REVIEW OF SYSTEMS: No CV, , pulmonary, eye systems symptoms on review. Gait unsteady. MENTAL STATUS EXAM: Oriented to herself and situation. Speech is coherent, often responses monosyllabic. Abstraction fair, computation impaired. Mood is okay according to the patient, but affect is depressed, anxious. No suicidal ideation. IMPRESSION: Major depressive disorder, recurrent, mild cognitive impairment. PLAN: I have once again discussed treatment on antidepressants. The patient is not accepting of it. Nursing staff will try and address this with the patient to see if she would accept in which case she may benefit from starting on Zoloft 25 mg a day, increasing gradually. MAN Nicolás GILBERT MD DR: CHATA/rosie JOB#: [id number] / [id number]
--- NOTE | 2018-11-07 01:45 | PN ---
DATE: SUBJECTIVE: This is an 83-year-old female with multiple medical problems. The patient is still very noncooperative with the nurses. She does not want her finger stuck, does not want insulin. The patient is still reluctant to have breathing treatments, but she certainly needs those. OBJECTIVE: VITAL SIGNS: Blood pressure 132/78, respiratory rate 22, pulse 70, afebrile, 3 liters per nasal cannula. She is feeling better. She is looking a little bit stronger. Her lungs are still very coarse in that nature and still needs to be checked there. CARDIOVASCULAR: Irregularly irregular rhythm. ABDOMEN: Soft. EXTREMITIES: No clubbing, cyanosis or edema. The patient's toe seems to be healing up fairly nicely. IMPRESSION: Acute on top of chronic diastolic heart failure; chronic atrial fibrillation; venous stasis ulcers; cellulitis of the toes, improved; type 2 diabetes, poorly controlled; anemia of chronic disease, stop the Eliquis; noncooperative situation; acute respiratory failure; possible sepsis; bacteremia; mild obesity. PLAN: The patient continued to be monitored, given iron and continue with respiratory therapy. She refuses PT/OT. DINORAH LEWIS MD DR: JOSE/rosie JOB#: [id number] / [id number]
[2018-11-07] MEDS: IPRATRPIUM/ALBUTEROL 0.5/2.5MG 3 ML NEBU. NEB SCH ×2 (05:17→10:59)
[2018-11-07 05:32] VITALS: BP 117/83
[2018-11-07] MEDS: ACETAMINOPHEN/CODEINE 300/30MG TABLET PO SCH ×3 (05:52→12:00)
[2018-11-07] MEDS: INSULIN LISPRO 300 UNITS/3 ML VIAL. SQ SCH ×2 (08:00→12:00)
[2018-11-07] MEDS: ASPIRIN ENTERIC COATED 81 MG TABLET.DR. PO SCH (08:25)
[2018-11-07] MEDS: buPROPion XL 150 MG TAB.ER.24H PO SCH (08:25)
[2018-11-07] MEDS: CYANOCOBALAMIN (VITAMIN B-12) 1,000 MCG TABLET. PO SCH (08:25)
[2018-11-07] MEDS: FUROSEMIDE 40 MG TABLET PO SCH (08:25)
[2018-11-07] MEDS: POTASSIUM CHLORIDE 20 MEQ TABLET.ER. PO SCH (08:25)
[2018-11-07] MEDS: FERROUS SULFATE 325 MG TABLET. PO SCH (08:26)
[2018-11-07] MEDS: LACTOBACILLUS RHAMNOSUS GG 1 CAPSULE. PO SCH (08:26)
[2018-11-07] MEDS: amLODIPine BESYLATE 2.5 MG TABLET PO SCH (08:26)
[2018-11-07] MEDS: LINAGLIPTIN 5 MG TABLET PO SCH (08:27)
[2018-11-07] MEDS: predniSONE 20 MG TABLET PO SCH (08:27)
[2018-11-07] MEDS: PANTOPRAZOLE 40 MG TABLET. PO SCH (08:27)
[2018-11-07] MEDS: LIDOCAINE (700MG/PATCH) PATCH. TP SCH ×2 (08:29→08:30)
[2018-11-07] MEDS: METOPROLOL SUCC 24HR ER 50 MG TAB.ER.24H. PO SCH (08:37)
[2018-11-07] MEDS: NYSTATIN TOPICAL POWDER 15GM BOTTLE. TP SCH (09:00)
[2018-11-07] MEDS ORDERED: HYDR-2155 PO (09:57)
[2018-11-07] MEDS ORDERED: BENZ1LOZ4 PO (09:57)
[2018-11-07] MEDS ORDERED: ASPI-612 PO (09:57)
[2018-11-07] MEDS ORDERED: LINA5TAB4 PO (09:57)
[2018-11-07] MEDS ORDERED: CLOP75TA57 PO (09:57)
[2018-11-07] MEDS ORDERED: IPRA3AMP29 NEB (09:57)
[2018-11-07] MEDS ORDERED: BUPR-192 PO (09:57)
[2018-11-07] MEDS ORDERED: INSU100I11 SQ (09:57)
[2018-11-07] MEDS ORDERED: CEPH500C PO (09:57)
[2018-11-07] MEDS ORDERED: FERR325T72 PO (09:57)
[2018-11-07] MEDS ORDERED: LACT1CAP19 PO (09:57)
[2018-11-07] MEDS: VANCOMYCIN 1.5 GM in IV NORMAL SALINE 500ML 500 ML IV SCH (12:00)
[2018-11-07 13:28] VITALS: BP 138/68
--- NOTE | 2018-11-07 14:15 | NUR ---
Discharge Note: GENARO JOSHUA [address] Discharge instructions and discharge home medications reviewed with receiving nurse at [facility]. The following instructions and handouts were given: To [facility] Discontinued lines and drains: IV removed, pressure dressing applied. Tip in tact. Patient discharged to [facility]
== END 2018-11-07 15:02 | DRG 871 ==
LOC: ER 11:54 → 1 SOUTH 14:00
PROVIDERS: ADMIT Family Medicine; ATTEND Family Medicine
DX: A41.9 Sepsis, unspecified organism (principal); J18.9 Pneumonia, unspecified organism; J96.01 Acute respiratory failure with hypoxia; I50.33 Acute on chronic diastolic (congestive) heart failure; N17.9 Acute kidney failure, unspecified; I47.2 Ventricular tachycardia; L97.919 Non-pressure chronic ulcer of unspecified part of right lower leg with unspecified severity; I11.0 Hypertensive heart disease with heart failure; L03.031 Cellulitis of right toe; E11.51 Type 2 diabetes mellitus with diabetic peripheral angiopathy without gangrene; N28.9 Disorder of kidney and ureter, unspecified; D64.9 Anemia, unspecified; I87.2 Venous insufficiency (chronic) (peripheral); I83.009 Varicose veins of unspecified lower extremity with ulcer of unspecified site; D50.9 Iron deficiency anemia, unspecified; I87.8 Other specified disorders of veins; D63.8 Anemia in other chronic diseases classified elsewhere; E03.9 Hypothyroidism, unspecified; E11.65 Type 2 diabetes mellitus with hyperglycemia; E66.01 Morbid (severe) obesity due to excess calories; E78.00 Pure hypercholesterolemia, unspecified; E78.5 Hyperlipidemia, unspecified; F31.9 Bipolar disorder, unspecified; F41.9 Anxiety disorder, unspecified; G31.84 Mild cognitive impairment of uncertain or unknown etiology; E11.42 Type 2 diabetes mellitus with diabetic polyneuropathy; I27.20 Pulmonary hypertension, unspecified; I48.2 Chronic atrial fibrillation; K21.9 Gastro-esophageal reflux disease without esophagitis; Z96.653 Presence of artificial knee joint, bilateral; E11.622 Type 2 diabetes mellitus with other skin ulcer; G89.29 Other chronic pain; M19.90 Unspecified osteoarthritis, unspecified site; M54.9 Dorsalgia, unspecified; J43.9 Emphysema, unspecified; Z80.9 Family history of malignant neoplasm, unspecified; Z82.49 Family history of ischemic heart disease and other diseases of the circulatory system; Z86.73 Personal history of transient ischemic attack (TIA), and cerebral infarction without residual deficits; Z90.710 Acquired absence of both cervix and uterus; Z95.5 Presence of coronary angioplasty implant and graft; Z98.62 Peripheral vascular angioplasty status; Z87.440 Personal history of urinary (tract) infections; Z88.5 Allergy status to narcotic agent; Z68.33 Body mass index [BMI] 33.0-33.9, adult
CPT/HCPCS: 36415; 71046; 78300; 80048; 80053; 80202; 81001; 82947; 83540; 83550; 83605; 83735; 83880; 84145; 84443; 84484; 85025; 85651; 87040; 87077; 87205; 93005; 94640; 94760; 96365; A9503; J0456; J0696; J1815; J1940; J1956; J2405; J3370; J7040; J7050; J7512; J7620; P9612; 97110; 97116; 97530; 99285-25